=== PATIENT | female | born 1955 | race Caucasian/White ===

== ENCOUNTER 2020-09-06 08:09 | Outpatient (CLI) | payer SELFPAY | END 2020-09-06 08:10 | disposition home or self-care (01) | PROVIDERS: Family Provider Nurse Practitioner Family; PCP Nurse Practitioner Family; Visit Provider Thoracic Surgery (Cardiothoracic Vascular Surgery) | DX: E11.621 Type 2 diabetes mellitus with foot ulcer (principal); L97.522 Non-pressure chronic ulcer of other part of left foot with fat layer exposed | CPT/HCPCS: 11042; G0463 ==

== ENCOUNTER → 2020-09-08 11:44 | Outpatient (BNVA) | payer SELFPAY | PROVIDERS: Family Provider Nurse Practitioner Family; PCP Nurse Practitioner Family; Visit Provider Internal Medicine Cardiovascular Disease | DX: I99.8 Other disorder of circulatory system (principal) | CPT/HCPCS: 80048; 85025; 85610 ==

== ENCOUNTER 2020-09-13 09:30 | Observation (INO) | payer SELFPAY ==
[2020-09-12 13:54] VITALS: BMI 45.2
[2020-09-13] VITALS (57 sets, daily range): BP systolic 117–172; BP diastolic 64–104; PULSE 73–91; RESP 10–21; TEMP 36.3–36.7; O2SAT 94–99
--- NOTE | 2020-09-13 09:00 | XACV_ITS ---
Ht: 170 cm Wt: 135 kg BSA: 2.60 m2 Any Known Allergies: Other Gender: Female : 1955 Exam Type: Invasive Peripheral Vascular Procedure(s): Procedure Description: Peripheral Cath Diagnostic Procedure Procedure Description: Abdominal aortic angiography Procedure Description: Lower extremities' angiography Procedure Description: Peripheral vascular Intervention Procedure Description: PV Balloon Procedure Description: PV Atherectomy Exam Priority: Routine Lower Extremity Interventional Findings Left common femoral artery approach was adopted to cross distal right SFA popliteal and tibioperoneal trunk lesions. 2.0 melanie CSI atherectomy was performed in distal SFA and popliteal vessel. Right Tibioperoneal trunk in proximal and distal segment was dilated with balloon angioplasty. Please note that 5 x 40 mm [place] balloon was used in the tibioperoneal trunk by 5x150 lutonix drug-coated balloon was used in distal SFA and popliteal vessel. Excellent angiographic result with good flow was achieved, two-vessel runoff was confirmed below the knee.. Conclusions Peripheral Procedure Description: severe lifestyle limiting claudication of left leg then right William grade II, category 4:Yomi stage III. Procedure Abdominal aorta : Luminal irregularities Left and right renal artery has luminal irregularities Left common iliac artery has luminal irregularity Right common iliac artery has eccentric moderate to severe stenosis in the proximal segment Left internal iliac and right internal iliac has luminal irregularities Right and left external iliac artery has luminal irregularity Left and right common femoral artery has luminal irregularity Left and right profunda femoral artery has luminal irregularity Right SFA has luminal irregularity Left SFA has distal eccentric highly calcified severely stenotic lesion Left popliteal arteries has mid to distal moderate to severe calcified eccentric lesion Left tibioperoneal trunk is mid and distal eccentric severely calcified lesions Right popliteal artery has moderate disease, right tibioperoneal trunk has moderate stenosis Right tibioperoneal trunk has moderate stenosis Right side two-vessel runoff below the knee was noted Right anterior tibial vessel has proximal chronic occlusion with reconstituted in the middle mild posterior tibial on the right side is chronically occluded, posterior tibial reconstituted in the distal segment through anterior tibial Left anterior, peroneal and posterior tibial arteries are highly calcified vessel with diffuse disease and multiple moderate stenosis. Arch vessels are not well visualized . Recommendations 1-Return to inpatient for close monitoring and routine cath care 2-Risk factor modification for secondary prevention 3-Statin and aspirin 81 mg life--long, if tolerated 4-Patient was pre-loaded with 300 mg of Plavix, continue Plavix 75mg p.o. daily for three months 5-Continue optimal medical management 6-Follow up with Dr. Alvarenga in four weeks and your primary care in 10 days. Hemodynamic Data Phase:Rest AO : 197.0 / 72.0 ( 113.0 ) @ 12:19:00 PM 149.0 / 60.0 ( 89.0 ) @ 12:40:00 PM 159.0 / 77.0 ( 94.0 ) @ 12:46:00 PM Access Site Site: Right Femoral artery Sheath Size: 6 Fr Hemost... Method: Suture Hemost... Success: Successful Procedure Details Findings Procedure Consent Obtained. Pre-Procedure Time Out. Identified patient by full name and date of as verbalized by the patient/guarantor. Does the consent match the physician's order: Yes. Accurate & Complete Informed Consent: Yes. Inpatient/Outpatient History & Physical on Chart: Yes. If H&P is completed, is and addenduem needed: No; If yes, is the addendum complete: N/A. Visualize and Verify Site with Patient/Guarantor: N/A. Relevant Radiology Images available: N/A. Pre-op teaching completed and patient verbalized understanding. The risks, benefits, and alternatives of sedation and/or procedure were discussed by physician. The patient agrees to continue. Procedure started. Correct patient, site and procedure confirmed by cath team. PERRLA. Strong, equal hand divorce mediator bilaterally. Lungs clear x 5 lobes. IV Site on Arrival: 22 gauge in the left anticubital. IV Fluids: 0.9% NaCl at KVO. 0 mL infused prior to company laborer. Pre Procedural Pulses: bilateral dorsalis pedis was 1+. Pre Procedural Pulses: bilateral posterior tibial was 1+. Oxygen started at 2liters/min via nasal canula. bilateral groins was prepped with chloroprep then draped in the usual sterile fashion. Baseline sample Acquired. HR: 80 BPM. Equipment: Peripheral. Cardiac Cath Pack. ACIST Manifold Kit Model BT 2000. Heparinized Saline (2 units/mL), 1000 mL bag. Physician arrived. Physician notified. Physician scrubbed in. Immediate Pre-Procedure Time Out. Correct Patient: Yes; Correct Procedure: Yes; Correct Site: Yes; Correct Patient Position: Yes; Correct Supplies: Yes; Dried Flammable Prep: Yes; Blood Products Available: N/A;. Lidocaine 1% infiltrated to the right groin. Arterial access obtained with micropuncture set. A Data Driven Delivery System 5F UF catheter 65cm was advanced over the wire and used for Abdominal aortogram with runoff. Abdominal aortogram performed in AP @ 10 mL/sec for a total of 30 mL. Left leg runoff 10 ml for total of 30 ml. Glidewire inserted. Inventory is JJ 6F 11cm Victoria Plus Sheath. Catheter removed over wire. Short 6 fr sheath exchanged for 45 cm 6 fr Flexor sheath. Inventory is CK 6 FR FLEXOR SHEATH 45CM. Hand injection through sheath. Side port of sheath attached to Normal Saline flush at KVO to maintain patency. SEEKER support catheter inserted over glidewire. Glidewire out. Hand injection through sheath. Command wire inserted. Command wire out. Command wire inserted. SEEKER catheter inserted over Command wire. Family updated. Inflation number : 1 A AB ARMADA 14 OTW [id number] was prepped and advanced across the Tibial Peroneal Trunk, Left , then inflated to 20 ALESSANDRA for 2:02 seconds. Inflation number: 2 The AB ARMADA 14 OTW [id number] was reinflated across the Tibial Peroneal Trunk, Left, to 20 ALESSANDRA for 1:01 seconds. Balloon out over wire. Seeker catheter inserted over Command wire. Command wire out. Hand injection performed to tibial peroneal trunk. VIPER wire inserted. Side port of sheath attached to Normal Saline flush at KVO to maintain patency. Seeker catheter out over VIPER wire. 2.0mm Diamondback Peripheral orbital atherectomy device inserted over the VIPER wire. Orbital atherectomy performed in left SFA. Orbital atherectomy performed in left SFA. Orbital atherectomy performed in left SFA. Orbital atherectomy device removed over VIPER wire. Seeker catheter inserted over VIPER wire. Seeker out over wire. Viper wire out. Glidewire inserted. Inflation number : 1 A bard 5 FR Lutonix [id number] was prepped and advanced across the Superficial Femoral, Left , then inflated to 12 ALESSANDRA for 2:05 seconds. Inflation number: 2 The bard 5 FR Lutonix [id number] was reinflated across the Superficial Femoral, Left, to 12 ALESSANDRA for 1:01 seconds. Inflation number: 3 The bard 5 FR Lutonix [id number] was reinflated across the Superficial Femoral, Left, to 12 ALESSANDRA for 1:02 seconds. Balloon out. Left leg runoff to check results. Long 45 cm 6 fr flexor sheath exchanged for short 6 fr sheath. Right leg runoff 10 ml for total of 30 ml through the sheath. Physician scrubbed out. A Suture was successful obtaining hemostatsis at the Right Femoral artery insertion site. Sheath(s) sutured into position with 2-0 silk and sterile 4x4's and Op-site applied over the site. No oozing or signs and symptoms of hematoma noted. Arterial sheath flushed and connected to tranducer and pressure bag with heparinized saline. Post Procedure: Pulses reassessed and unchanged. PERRLA. Strong, equal hand divorce mediator bilaterally. No VTE prophylaxis required. Medication's Wasted: Nitro = 48.8 mg. Medication's Wasted: Heparin = 1000 units. Medication's Wasted: Other = verapamil 4 mg. Medication's Wasted: Other = hydralazine 10 mg. Total IV fluids: 86.4 mL. Contrast type used: Visipaque 320 mgI/mL, 500 mL bottle. Post-op diagnosis: PVD. Complications: none. Estimated blood loss: 5mL-10mL. Procedure completed. Patient transferred by bed to 1st floor. Vital chart was stopped. Procedure Medications Start: 5:04 PM Stop: 5:04 PM Medication: Versed Amount: 1 mg Route: I.V. Start: 5:04 PM Stop: 5:04 PM Medication: Fentanyl Amount: 25 mcg Route: I.V. Start: 5:15 PM Stop: 5:15 PM Medication: Versed Amount: 1 mg Route: I.V. Start: 5:15 PM Stop: 5:15 PM Medication: Fentanyl Amount: 25 mcg Route: I.V. Start: 5:21 PM Stop: 5:21 PM Medication: Hydralazine Amount: 10 mg Route: I.V. Start: 5:23 PM Stop: 5:23 PM Medication: Versed Amount: 1 mg Route: I.V. Start: 5:29 PM Stop: 5:29 PM Medication: Heparin Amount: 5000 units Route: I.V. Start: 5:42 PM Stop: 5:42 PM Medication: Versed Amount: 1 mg Route: I.V. Start: 5:42 PM Stop: 5:42 PM Medication: Fentanyl Amount: 25 mcg Route: I.V. Start: 5:49 PM Stop: 5:49 PM Medication: Nitrogylcerin Amount: 400 mcg Route: I.A. Start: 5:52 PM Stop: 5:52 PM Medication: Heparin Amount: 4000 units Route: I.V. Start: 5:59 PM Stop: 5:59 PM Medication: Versed Amount: 1 mg Route: I.V. Start: 5:59 PM Stop: 5:59 PM Medication: Fentanyl Amount: 25 mcg Route: I.V. Start: 6:02 PM Stop: 6:02 PM Medication: Versed Amount: 1 mg Route: I.V. Start: 6:15 PM Stop: 6:15 PM Medication: Nitrogylcerin Amount: 400 mcg Route: I.A. Start: 6:24 PM Stop: 6:24 PM Medication: Plavix Amount: 300 mg Route: P.O. History/Risk Factors Hypertension: No Dyslipidemia: Yes Peripheral Arterial Disease (PAD): Yes Obesity: No Renal Disease: No Prior Interventions PCI: No CABG: No Valve Surgery: No Report Signatures Finalized by Mo Alvarenga MD on 09/19/2020 04:44 PM
[2020-09-13 09:29] LABS: Glucose Point of Care 274 mg/dL (70-110)
--- NOTE | 2020-09-13 09:44 | PM.HP ---
Providers/Chief Complaint Primary Care Provider: Jas Willett MD Chief Complaint: Critical limb ischemia History of Present Illness Naida Arevalo is a 65 year old female past medical history significant for uncontrolled diabetes mellitus and gangrenous left foot/toes is under care of Dr. Leiva in the wound care clinic has been referred to us for revascularization for wound healing and limb salvage. Patient had monophasic flow in the leg by handheld. No other imaging available, we are planning to proceed with peripheral angiogram and percutaneous intervention if indicated. Patient is being admitted to cardiac stepdown floor for preop preparation. Patient has been explained by me all risk benefit and alternative for the procedure. She understand the risk for distal embolization leading to acute leg urgent emergent vascular surgery amputation major minor bleed contrast-induced nephropathy and vascular intervention. Patient has been explained in detail regarding FDA warning for drug-coated balloon and increased mortality in subset. She understand the risk and would like to use it if indicated. Medications/Allergies Home Medications Medication Instructions Recorded Confirmed Last Taken Type aspirin 325 mg PO QAM 09/12/20 09/13/20 09/11/20 21:00 History insulin NPH human semi-syn See Rx Instructions .ROUTE .COMPLEX 09/12/20 09/12/20 09/12/20 07:30 History [Novolin N (Semi-Synthetic)] lisinopril 5 mg PO QAM 09/12/20 09/13/20 09/12/20 08:00 History metformin 1,000 mg PO BID 09/12/20 09/13/20 09/12/20 08:00 History Allergies Allergy/AdvReac Type Severity Reaction Status Date / Time empagliflozin Allergy Unknown Verified 09/12/20 13:53 [From Jardiance] PFSH Acute PFSH: Medical History (Updated 09/13/20 @ 10:16 by Mo Alvarenga MD) Diabetes mellitus Gangrene Hyperlipidemia Hypertension Family History (Updated 09/12/20 @ 13:50 by Michael Melgar, RN) Other CAD (coronary artery disease) Cancer Diabetes Stroke Social History (Updated 09/12/20 @ 13:50 by Michael Melgar, CHRISTELLE) Smoking and tobacco status: never smoked Vitals/I&O/Wt Weight last 48 hrs Weight 289 lb Physical Exam Narrative: EXAM NARRATIVE: GENERAL: Patient is alert, awake and oriented x3. NECK: No jugular vein distension. HEENT: No cyanosis. No icterus. No pallor. HEART: Regular S1 and S2. No murmur, rub or gallop. LUNGS: Clear to auscultate bilaterally. ABDOMEN: Soft, nontender and nondistended. Positive bowel sounds. No guarding, rebound or tenderness. CENTRAL NERVOUS SYSTEM: Grossly nonfocal. EXTREMITIES: Lower extremities without edema bilaterally. Left gangrenous foot/toes A&P Assessment and plan (1) Critical lower limb ischemia: For critical limb ischemia/gangrenous foot we will proceed with peripheral angiogram and percutaneous intervention if indicated. Status: Acute (2) Diabetes mellitus: We will hold insulin and Metformin sliding scale will cover Status: Acute Qualifiers: Diabetes mellitus type: type 2 Diabetes mellitus exterminator termite insulin use: with exterminator termite use Diabetes mellitus complication status: with other specified complication Qualified Code(s): E11.69 - Type 2 diabetes mellitus with other specified complication; Z79.4 - terminal carman (current) use of insulin (3) Gangrene: Will proceed with revascularization Status: Inactive Attestations Medical Necessity Statement*: I am expecting her stay not to cross more than 2 days. Coding Level of Care Code New Pt Acute Hat Parts Cutter Machine for [facility] Fwd Patient Type New History Detailed Exam Detailed Medical Decision Making Moderate Complexity Diagnoses Critical lower limb ischemia I99.8 Diabetes mellitus E11.69; Z79.4 Diabetes mellitus type: type 2 Diabetes mellitus exterminator termite insulin use: with exterminator termite use Diabetes mellitus complication status: with other specified complication Gangrene I96
[2020-09-13 11:31] LABS: Glucose Point of Care 245 mg/dL (70-110)
[2020-09-13] MEDS: diphenhydrAMINE 50 mg Capsule PO (15:47)
[2020-09-13] MEDS: sodium chloride 0.9% 1,000 ML 50 ML IV (15:50)
--- NOTE | 2020-09-13 16:45 | PC.NURSE ---
To heart laborer laboratory at [id number]
--- NOTE | 2020-09-13 19:13 | PC.NURSE ---
Received bedside report from CHRISTELLE Hilton. Patient received from laboratory courier via bed. Patient is s/p peripheral angiogram. Patient has sheath to right groin with pressure bag attached. Site is free from bleeding or hematoma formation. Discussed site care restrictions and patient verbalized understanding. Daughter at bedside. Dinner provided. Dr Alvarenga in to see patient. Patient has dopplered pulses to left pedal and tibial pulses present. Patient stated, 'That sounds wonderful. Patient denies pain or other needs. No distress observed.
--- NOTE | 2020-09-13 20:04 | PC.NURSE ---
Addendum entered by Natasha Riley RN 09/13/20 20:22: Pulses to right leg present by doppler. Original Note: Patient c/o severe pain to right leg 8-03/09. Assessed groin site with sheath in place. No s/s of bleeding or hematoma formation observed. Informed Dr Alvarnega and received telephone order for Morphine 4mg IVP every 4 hours as needed for pain.
[2020-09-13] MEDS: morphine 4 mg/mL SDV 1 mL IVP (20:12)
[2020-09-13 21:01] LABS: Glucose Point of Care 279 mg/dL (70-110)
[2020-09-13 21:13] LABS: Partial Thromboplastin Time 49.7 SECONDS (23.9-36.7)
--- NOTE | 2020-09-13 21:16 | PC.NURSE ---
Patient report some improvement to pain in right leg. Right femoral site with sheath and pressure bag attached remain without s/s of bleeding or hematoma formation. Discussed pending PTT results for sheath removal. Patient expressed understanding.
--- NOTE | 2020-09-13 22:00 | PC.NURSE ---
Patient c/o nausea and severe pain to right leg. Informed Dr Alvarenga and received telephone orders for Zofran 4-8mg IVP every 6 hours as needed for nausea and Fentnyl 50mcg IVP one time now for pain and sheath removal. RBVO.
[2020-09-13] MEDS: fentaNYL 50 mcg/mL INJ 2mL IVP (22:03)
[2020-09-13] MEDS: ondansetron 2 mg/ML SDV 2 mL IVP (22:04)
--- NOTE | 2020-09-13 22:10 | PC.NURSE ---
Dr Alvarenga in to see patient. Doctor in agreement. No hematoma formation or bleeding noted. Doctor doppled pulses with good audible results. Received orders to discontinue morphine and change to fentnyl 25mcg IVP every 4 hours for severe pain. Also received order for Protonix 40mg PO daily to start now. RBVO.
[2020-09-13] MEDS: pantoprazole DR 40 mg Tablet PO (22:19)
--- NOTE | 2020-09-13 23:08 | PC.NURSE ---
Patient pre-medicated as ordered by Dr Alvarenga for sheath removal. Initiated sheath removal per protocol at 2226. Hemostasis achieved immediately. Maintained pressure for 20min. VS remained WNL. Cleaned and dressed site with folded 4x4 and bio-occlusive dressing. Patient reported some relief of nausea and pain during procedure. Patient requested bedpan with very small amount of urine obtained. Cleaned patient. Positioned patient to right lateral position x2 assist with pillows placed. No s/s of bleeding or hematoma formation observed. Instructed patient on site care and restrictions. Patient verbalized understanding. Patient had small episode of emesis and .dry heaves . Observed less than 10ml of mucous, rader colored emesis. Patient requesting zoe crackers and jello to help with feeling of nausea which were provided. Patient expressed thanks.
[2020-09-14] VITALS (14 sets, daily range): BP systolic 129–157; BP diastolic 70–105; PULSE 73–96; RESP 6–95; TEMP 36.4–36.6; O2SAT 97
--- NOTE | 2020-09-14 01:18 | PC.NURSE ---
Patient assisted on to bed tam. Placed patient back on right lateral side per patient request. Dressing to right groin remain c,d,i with no s/s of bleeding or hematoma formation observed. Both extremities pink and warm to touch. Pulses doppled and present to bilateral lower extremities. Patient reports pain to right leg resolving at this time. Patient does have complaint of pain to left leg presently 3-4/10 but is tolerable at this time. Nausea resolved. No other distress observed.
--- NOTE | 2020-09-14 04:52 | PC.NURSE ---
Patient up to bathroom using walker. Dressing to right groin remains c,d,i. No s/s of bleeding or hematoma observed. Patient reports much improvement to all her pain. BLE pink, warm to touch with doppled pulses present.
[2020-09-14] MEDS: lisinopril 5 mg Tablet PO (05:00)
[2020-09-14] MEDS: aspirin 325 mg Tablet PO (05:00)
[2020-09-14 05:04] LABS: Basophils % 0.2 %; Eosinophils # 0.1 10^3/uL (0.0-0.8); Eosinophils % 1.1 %; Hematocrit 37.7 % (37.0-47.0); Hemoglobin 11.8 g/dL (11.5-15.3); Lymphocytes # 2.6 10^3/uL (0.8-4.8); Lymphocytes % 26.1 %; Mean Corpuscular HGB Conc 31.3 g/dL (30.0-36.0); Mean Corpuscular Volume 89.3 fL (81-99); Monocytes # 0.8 10^3/uL (0.2-0.9); Monocytes % 7.8 %; Neutrophils % 64.4 %; Nucleated Red Blood Cells % 0 %; Platelet Count 373 10^3/cmm (130-400); Red Blood Count 4.22 10^6/uL (4.1-5.3); Red Cell Distribution Width 12.4 % (12.1-15.1); White Blood Count 9.9 10^3/uL (4.0-10.0)
[2020-09-14 05:26] LABS: Anion Gap 15.4 (5-19); Blood Urea Nitrogen 16 mg/dL (8-23); Calcium 8.4 mg/dL (8.5-10.5); Carbon Dioxide 23 mmol/L (22-29); Chloride 100 mmol/L (98-107); Creatinine Clr Calc Pharmacy 0; Glomerular Filtration Rate 100.6 mL/min (90-130); Glucose 287 mg/dL (65-115); Osmolality Calculated 290 mOsm/kg (285-295); Potassium 4.4 mmol/L (3.5-5.1); Sodium 134 mmol/L (136-145)
[2020-09-14 06:51] LABS: Glucose Point of Care 277 mg/dL (70-110)
[2020-09-14] MEDS: pantoprazole DR 40 mg Tablet PO (07:33)
--- NOTE | 2020-09-14 10:46 | PC.CHAP ---
Pastoral Care Encounter/Spiritual Assessment Type of Contact [] Declined automat car attendant visit [] Patient/Family/Request visit [] Outpatient visit [] Follow-up visit [] Physician referral [] Code/Alert [x] Routine visit [] Staff referral [] Actively dying [] Patient sleeping [] Family support [] [] Out of room [] Palliative care [] [x] Receiving care in room [] Pre-surgical visit [] Trauma [] Long length of stay [] ICU visit [] Other: Relational/Emotional Strength [x] Patient feels connected with others/family/visitors/staff [] Distress [] Loneliness/isolation [] Abandonment Spirituality of Patient [x] Person of Mikki [] Attends Rastafarian of their Mikki [x] Believes in Prayer [] Reads Bible or Lutheran materials [] There are Spiritual issues to be addressed Showroom Executive Director Interventions [x] Prayer [x] Active listening [x] Non-anxious presence [x] Spiritual/emotional support [] Crisis/trauma care [x] Spiritual counseling [] Bereavement support [] Provided bereavement packet [] Provided Bible/devotional materials [] Provided toy/stuffed animal, coloring book to patient or family member [] Provided Communion [] Anointing/[place] [] Salvation [x] Completed spiritual assessment [] Other: Impact on Illness or Injury [] Angry [] Fearful [] Anxious [] Often cries [] Exhaustion [] Unable to work [] Unable to attend uatsdin [] Unable to walk/stand [] Unable to read [] Unable to drive [] Unable to eat/drink [] Unable to sleep [] Unable to be with family [] Patient intubated [] Other: Summary going to have toe removed, has a good attitude hope to have surgery while she is here Time spent with patient 10 mins
[2020-09-14 11:52] LABS: Glucose Point of Care 249 mg/dL (70-110)
--- NOTE | 2020-09-14 14:39 | P.DS_ITS ---
Discharge Providers Date of Admission: 09/13/20 09:30 Date of Discharge: September 14, 2020 Attending Provider at Admission: Mo Alvarenga MD Attending Provider at Discharge: Mo Alvarenga MD Primary Care Provider: Jas Willett MD Diagnoses at Discharge Discharge Diagnosis (1) Critical lower limb ischemia: Status: Resolved (2) Diabetes mellitus: Status: Acute Qualifiers: Diabetes mellitus complication status: with other specified complication Diabetes mellitus long term care pharmacist insulin use: with long term care pharmacist use Diabetes mellitus type: type 2 Qualified Code(s): E11.69 - Type 2 diabetes mellitus with other specified complication; Z79.4 - correction (current) use of insulin (3) Gangrene: Status: Inactive Reason for Visit Reason for Visit: Critical limb ischemia Hospital Course Hospital Course 65-year-old female underwent left SFA atherectomy and balloon angioplasty with good result. No overnight event. She is following up with Dr. Leiva in the wound care for 2 amputation secondary to gangrene us toes. Overall she is happy with the results she has good anterior posterior tibial pulse. Foot appear to be warm moist. Groin wound looks good. No hematoma. She is being discharged home. Physical Exam Narrative: EXAM NARRATIVE: GENERAL: Patient is alert, awake and oriented x3. NECK: No jugular vein distension. HEENT: No cyanosis. No icterus. No pallor. HEART: Regular S1 and S2. No murmur, rub or gallop. LUNGS: Clear to auscultate bilaterally. ABDOMEN: Soft, nontender and nondistended. Positive bowel sounds. No guarding, rebound or tenderness. CENTRAL NERVOUS SYSTEM: Grossly nonfocal. EXTREMITIES: Lower extremities without edema bilaterally. Left gangrenous foot/toes, anterior posterior tibial dopplerable Discharge Data Data Completed and Pending: Pending at discharge Category Date Time Status ENGINEERING SYSTEMS ANALYST request for service Routin e Exams 09/13/20 09:00 Taken Labs from last 24 hours 09/14/20 09/14/20 09/14/20 11:19 06:37 04:41 WBC RBC Hgb Hct MCV MCH MCHC RDW Plt Count MPV Neut % (Auto) Lymph % (Auto) [place] % (Auto) Eos % (Auto) Baso % (Auto) Neut # (Auto) Lymph # (Auto) [place] # (Auto) Eos # (Auto) Baso # (Auto) Nucleated RBC % (a uto) Nucleated RBCs # APTT Sodium 134 L Potassium 4.4 Chloride 100 Carbon Dioxide 23 Anion Gap 15.4 BUN 16 Creatinine 0.6 GFR Calculation 100.6 Glucose 287 H POC Glucose 249 H 277 H Calculated Osmolal ity 290 Calcium 8.4 L 09/14/20 09/13/20 09/13/20 04:41 20:57 20:40 WBC 9.9 RBC 4.22 Hgb 11.8 Hct 37.7 MCV 89.3 MCH 28.0 MCHC 31.3 RDW 12.4 Plt Count 373 MPV 10.0 Neut % (Auto) 64.4 Lymph % (Auto) 26.1 [place] % (Auto) 7.8 Eos % (Auto) 1.1 Baso % (Auto) 0.2 Neut # (Auto) 6.40 Lymph # (Auto) 2.6 [place] # (Auto) 0.8 Eos # (Auto) 0.1 Baso # (Auto) 0.0 Nucleated RBC % (a uto) 0 Nucleated RBCs # 0.0 APTT 49.7 H Sodium Potassium Chloride Carbon Dioxide Anion Gap BUN Creatinine GFR Calculation Glucose POC Glucose 279 H Calculated Osmolal ity Calcium Vitals: Last Vital Signs Temp 97.5 F L 09/14/20 11:21 Pulse 84 09/14/20 11:21 Resp 21 H 09/14/20 11:21 BP 129/83 09/14/20 11:21 Pulse Ox 94 09/13/20 22:45 Discharge Plan Discharge Patient Disposition: Home Condition: Stable Prescriptions: New clopidogrel 75 mg tablet 75 mg PO DAILY Qty: 90 RF: 2 pantoprazole 20 mg tablet,delayed release (DR/EC) 20 mg PO DAILY 56 Days Qty: 60 RF: 0 Continued metformin 1,000 mg Tablet 1,000 mg PO BID RF: 0 lisinopril 5 mg Tablet 5 mg PO QAM RF: 0 insulin NPH human semi-syn 100 unit/mL Cartridge See Rx Instructions .ROUTE .COMPLEX RF: 0 No Action sulfamethoxazole-trimethoprim [Bactrim DS] 800-160 mg tablet 1 tab PO BID Qty: 20 RF: 0 hydrocodone-acetaminophen 5-325 mg tablet 1 tab PO Q6H PRN (Reason: pain) 7 Days Qty: 20 RF: 0 Discharge Orders: Discharge Order (Routine); Ordered 09/14/20 Ordered By: Mo Alvarenga Referrals: Mo Alvarenga MD [Physician] - 6 months (YOU HAVE A FOLLOW UP APPOINTMENT WITH DR. ALVARENGA ON Friday AT 200 PM. IF YOU HAVE AN QUESTIONS OR NEED TO RESCHEDULE PLEASE CALL [phone]) Lico Leiva MD [Physician] - (YOU HAVE AN APPOINTMENT WITH AT WOUND CARE ON FridayAugust AT 930 AM IF YOU HAVE ANY QUESTIONS PLEASE CALL [phone].) Nan Bradley FNP [Nurse Practitioner] - 7-10 days (YOU HAVE A FOLLOW UP APPOINTMENT WITH [facility] BRAD[facility] ON FridayAugust AT 930 AM. IF YOU HAVE AN QUESTIONS OR NEED TO RESCHEDULE PLEASE CALL [phone]) Discharge Diet: Cardiac Discharge Activity: Increase activity as tolerated Patient Instructions: Clopidogrel (By mouth), Pantoprazole (By mouth), Peripheral Vascular Angioplasty (DC), Post Angiogram Home Care Instructions Activity Restrictions/Additional Instructions: Follow-up with Nan Bradley in 7 to 10 days. Follow-up with Dr. Leiva in wound care as instructed by wound care. Follow-up with Dr. Alvarenga in 6-month. Discharge Attestations Time Spent in Discharge Care*: greater than 30 min Specific Discharge Activities: educating patient and educating and/or supporting family/caregiver Quality Metrics Clinical Quality Measures During this hospital stay, did patient experience: None Coding Level of Care Code Acute g FW DC note Diagnoses Critical lower limb ischemia I99.8 Diabetes mellitus E11.69; Z79.4 Diabetes mellitus complication status: with other specified complication Diabetes mellitus prison insulin use: with long term care pharmacist use Diabetes mellitus type: type 2 Gangrene I96
[2020-09-14] MEDS: HYDROcodone-acetaminophen 5-325 mg Tablet 1 TAB PO (15:30)
--- NOTE | 2020-09-14 15:50 | PC.NURSE ---
meds to bed
--- NOTE | 2020-09-14 16:24 | PC.NURSE ---
Discharge to home with daughter at bedside Discuss to pt regarding her follow-up appointments as scheduled and new meds dosing, timing, actions. Post angiogram home care instructions regarding activity restrictions, wound care, what to expect and what to keep and eye. Pt verbalizes understanding. provided to pt discharge packet.
== END 2020-09-14 16:24 | disposition home or self-care (01) ==
LOC: CSU 09-14 09:28 → CCL 09-18 08:16
PROVIDERS: Admitting Provider Internal Medicine Cardiovascular Disease; PCP Family Medicine; Visit Provider Internal Medicine Cardiovascular Disease
DX: I70.263 Atherosclerosis of native arteries of extremities with gangrene, bilateral legs (principal); E11.69 Type 2 diabetes mellitus with other specified complication; Z79.4 Long term (current) use of insulin; E78.5 Hyperlipidemia, unspecified
CPT/HCPCS: 36415; 36416; 37225; 37228; 75625; 75716; 80048; 82962; 85025; 85730; 96372; C1724; C1725; C1769; C1887; C1894; C2623; G0378; J0360; J1644; J1815; J2250; J2270; J2405; J3010; J3490; J7030; Q0163; Q9967

== ENCOUNTER 2020-09-20 08:32 | Outpatient (CLI) | payer SELFPAY | END 2020-09-20 08:33 | disposition home or self-care (01) | LOC: WOUND 08:33 | PROVIDERS: PCP Family Medicine; Visit Provider Thoracic Surgery (Cardiothoracic Vascular Surgery) | DX: E11.621 Type 2 diabetes mellitus with foot ulcer (principal); L97.522 Non-pressure chronic ulcer of other part of left foot with fat layer exposed; Z20.822 Contact with and (suspected) exposure to COVID-19; Z11.52 Encounter for screening for COVID-19; I73.9 Peripheral vascular disease, unspecified | CPT/HCPCS: 87635; G0463 ==

== ENCOUNTER → 2020-09-21 09:55 | Outpatient (BNVA) | payer SELFPAY | PROVIDERS: PCP Family Medicine; Visit Provider Nurse Practitioner Family | DX: I73.9 Peripheral vascular disease, unspecified (principal) | CPT/HCPCS: 80048 ==

== ENCOUNTER 2020-09-22 10:27 | Day surgery (SDC) | payer SELFPAY ==
[2020-09-21 13:53] VITALS: BMI 47.0
--- NOTE | 2020-09-22 11:08 | ANES.PREANE2 ---
Pre-Anesthetic Assessment Pre-Anesthetic Assessment: Height/Weight: Height 1.7 m Weight 136.078 kg Preop Diagnosis: PVD Proposed Procedure: Operation Date: 09/22/20 12:20 Proposed Procedures p Amputation Toe/s Second and Third 35886 E11.621(Left) - Lico Leiva MD Familial anesthetic complications: nione Was Beta Lauren taken within 24 hours: N/A Was Clonidine taken within 24 hours: N/A Last intake: Intake Last Liquid Date 09/21/20 Last Liquid Time 18:00 Last Solid Date 09/21/20 Last Solid Time 18:00 Social: Social History: No alcohol and No tobacco Exam: Pre-Anes Outpt Exam: alert, oriented x 3, clear to auscultation bilaterally and regular rate & rhythm Airway: Cervical ROM: WNL MP: 3 Dentition: False CV/HEM: CV/HEM: CAD, HTN and PVD Metabolic: Metabolic: DM and Morbid obesity Anesthetic Plan: ASA status: 3 Anesthesia: MAC Risk of > 500 ml blood loss (7ml/kg in children): No PFSH Anesthesia PFSH: Medical History (Updated 09/21/20 @ 09:45 by TAISHA Ennis) Diabetes mellitus Gangrene Hyperlipidemia Hypertension PVD (peripheral vascular disease) Family History Other CAD (coronary artery disease) Cancer Diabetes Stroke Social History Smoking and tobacco status: never smoked Data Anesthesia Cardiac Studies: No Data to Display
--- NOTE | 2020-09-22 11:22 | ECG_ITS ---
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 Measurements Intervals [place] Rate: 83 P: 57 NC: 168 QRS: 7 QRSD: 95 T: 56 QT: 360 QTc: 425 Interpretive Statements SINUS RHYTHM WITH SINUS ARRHYTHMIA Compared to ECG 03/28/2016 18:22:26 No significant changes Electronically Signed On 09-22-2020 18:19:43 CDT by Ольга Gaitan M.D. [email or web address] issaquena community hospitalClix Softwareblanchard valley health system [facility].[id number]
[2020-09-22] MEDS: sodium chloride 0.9% 1,000 ML 30 ML IV (11:30)
--- NOTE | 2020-09-22 12:02 | W.PM.OPSUD ---
Surgery/Procedure H&P Update DATE OF PROCEDURE: September 22, 2020 DATE H&P PERFORMED: 09/20/20 H&P UPDATE INFORMATION: I have reviewed H&P completed within last 30 days, I have examined patient prior to procedure and No changes to prior documentation PREOP DIAGNOSIS: Left second and third toe amputations PRIMARY INDICATION FOR PROCEDURE: Gangrenous changes left second and third toes, status post angioplasty left SFA PLANNED PROCEDURE: Operation Date: 09/22/20 12:20 Proposed Procedures p Amputation Toe/s Second and Third 53976 E11.621(Left) - Lico Leiva MD
[2020-09-22] MEDS: vancomycin 1,000 MG in sodium chloride 0.9% 250 ML 250 MG IV (12:03)
[2020-09-22] MEDS: lidocaine 1% INJ 20 mL IM (12:24)
[2020-09-22] MEDS: ceFAZolin 1,000 mg SDV 1000 MG IRRIGATION (12:48)
[2020-09-22 13:03] VITALS: BP 130/80; PULSE 79; RESP 16; TEMP 36.8; O2SAT 93
[2020-09-22 13:05] VITALS: BP 128/79; PULSE 84; RESP 14; O2SAT 92
[2020-09-22 13:10] VITALS: BP 150/77; PULSE 78; RESP 14; O2SAT 93
[2020-09-22 13:15] VITALS: BP 147/89; PULSE 77; RESP 13; TEMP 36.6; O2SAT 95
--- NOTE | 2020-09-22 13:16 | PM.OP ---
Operative Report Date of procedure: September 22, 2020 Pre-op Diagnosis: Left second and third toe amputations Post-op diagnosis: same Procedure Done: Amputation of left second and third toes. Specimens removed/disposition: Left second and third toes Surgeon: Lico Leiva Anesthesia: MAC and Local Complications: None Condition: stable Disposition: PACU Brief History: 65-year-old diabetic female with gangrenous changes to the left second and third toes. History of peripheral arterial disease and status post intervention to the left SFA recently by our cardiology service. Followed carefully in wound care. Due to continued gangrenous changes to the left second and third toes, amputation was recommended. Details and risk of procedure carefully and frankly discussed. Proper consents have been reviewed and signed. Procedure: Ms. Arevalo was taken to the operating room theater and carefully positioned on the OR table. She underwent IV conscious sedation with anesthesia monitoring. Her entire left lower leg from mid calf through the foot was sterilely prepped and draped. Appropriate timeout was completed and confirmed. 1% lidocaine was infiltrated as a digital block to the left second and third toes. #15 scalpel blade was then utilized to incise at the base of the left second and third toes down through the subtendinous tissues to the metatarsal phalangeal joints and subsequent transection of associated ligaments and tendons. Left second and third toes were removed. Cautery was utilized very judiciously on major bleeding points. Powered blade was then utilized to transect the heads of the left second and third metatarsals. Wound was irrigated with antibiotic solution. Hemostasis confirmed. I elected to attempt primary closure of this wound utilizing interrupted and mattress closure 3-0 nylon sutures. Once completed, the wound was carefully cleansed and then sterilely dressed. Ms. Turcios was awakened from IV conscious sedation and transferred to the PACU in stable condition. She will continue outpatient antibiotics previously prescribed. She will be followed up in wound care services next week. It is not clear at this time as to whether we will be successful with attempted primary closure following amputation, given her marginal blood supply distally.
[2020-09-22 13:22] VITALS: BP 140/85; PULSE 79; RESP 16; O2SAT 97
--- NOTE | 2020-09-22 13:40 | ANE.PACU2 ---
Inpatient post-anesthesia follow up: Airway intact: Yes Vital signs: Temperature 97.8 F Pulse Rate 79 Respiratory Rate 16 Blood Pressure 140/85 Pulse Oximetry 97 Oxygen Delivery Me thod Room Air Oxygen Flow Rate Fraction of Inspir ed Oxygen Hydration adequate: Yes Nausea and vomiting: No Pain level: 2 Mental status: Baseline
[2020-09-22 14:00] VITALS: BP 185/77; PULSE 79; RESP 16; O2SAT 100
[2020-09-22 18:44] LABS: Glucose Point of Care 279 mg/dL (70-110)
== END 2020-09-22 14:46 | disposition home or self-care (01) ==
PROVIDERS: PCP Family Medicine; Visit Provider Thoracic Surgery (Cardiothoracic Vascular Surgery)
PROC: (CPT 28820; principal; 2020-09-22 12:10)
DX: I96 Gangrene, not elsewhere classified (principal); I25.10 Atherosclerotic heart disease of native coronary artery without angina pectoris; I10 Essential (primary) hypertension; E11.9 Type 2 diabetes mellitus without complications; E66.01 Morbid (severe) obesity due to excess calories; Z68.42 Body mass index [BMI] 45.0-49.9, adult
CPT/HCPCS: 28820 ×2; 36416; 82962; 88305; 93005; J0690; J2704; J3010; J3370; J7030; J7050

== ENCOUNTER 2020-09-27 08:50 | Outpatient (CLI) | payer SELFPAY | END 2020-09-27 08:51 | disposition home or self-care (01) | LOC: WOUND 08:50 | PROVIDERS: PCP Family Medicine; Visit Provider Thoracic Surgery (Cardiothoracic Vascular Surgery) | DX: E11.621 Type 2 diabetes mellitus with foot ulcer (principal); L97.529 Non-pressure chronic ulcer of other part of left foot with unspecified severity | CPT/HCPCS: 99212 ==

== ENCOUNTER 2020-10-04 08:39 | Outpatient (CLI) | payer SELFPAY | END 2020-10-04 08:40 | disposition home or self-care (01) | LOC: WOUND 08:41 | PROVIDERS: PCP Family Medicine; Visit Provider Thoracic Surgery (Cardiothoracic Vascular Surgery) | DX: E11.621 Type 2 diabetes mellitus with foot ulcer (principal); L97.529 Non-pressure chronic ulcer of other part of left foot with unspecified severity | CPT/HCPCS: 99212 ==

== ENCOUNTER 2020-10-05 13:28 | Emergency (ER) | payer SELFPAY ==
[2020-10-05 13:40] VITALS: BP 230/94; PULSE 80; RESP 18; TEMP 36.4; O2SAT 100; BMI 48.4
--- NOTE | 2020-10-05 13:43 | XR_ITS ---
WS: [id number] Right shoulder, 2 views, 10/05/2020 Clinical Data: pain Comparison: None. Findings: There is a fracture of the junction of the right humeral head and right humeral neck. The humeral hea d remains within the glenoid fossa. The AC joint is not remarkable. The adjacent right clavicle, righ t scapula and right ribs are normal. There is soft tissue swelling over the fracture site. XR/XR shoulder RT min 2V* 19471 Impression: Fracture of the junction of the right humeral head and right humeral neck.
--- NOTE | 2020-10-05 13:43 | CT_ITS ---
WS: [id number] CT scan of the head, 10/05/2020 Clinical Data: fall, pain Comparison: None. DLP: 994.[address] scans at [facility] use at least one of these dose optimization techniques: automat ed exposure control; mA and/or kV adjustment per patient size (includes targeted exams where dose is matched to clinical indication); or iterative reconstruction. Findings: The ventricular system is normal without shift. No recent infarct or hemorrhage is seen. There are no abnormal intracerebral masses. The cerebellum and brainstem are not remarkable. Bony windows of the skull and skull base show no fractures or erosions. The mastoid air cells, international bank manager al auditory canals, sella turcica, intraorbital contents, and paranasal sinuses are unremarkable. CT/CT head wo con* [id number] Impression: Negative CT scan of the head
--- NOTE | 2020-10-05 13:43 | XR_ITS ---
WS: [id number] Portable AP supine chest, 10/05/2020 Clinical Data: dyspnea/cough Comparison: PA chest, 03/28/2016. Findings: No nodules, masses or effusions are seen. The heart is normal. The pulmonary vascularity is not increased. No pneumonia or pneumothorax is seen. The patient's clothing obscures only minimal de tail over the upper chest. XR/XR chest 1V portable [id number] Impression: Negative chest.
--- NOTE | 2020-10-05 13:43 | CT_ITS ---
WS: [id number] CT cervical spine. Additional two-dimensional coronal and sagittal reconstruction was performed. 2020 Clinical Data: pain after fall Comparison: None. DLP: 1018.[address] scans at [facility] use at least one of these dose optimization techniques: automat ed exposure control; mA and/or kV adjustment per patient size (includes targeted exams where dose is matched to clinical indication); or iterative reconstruction. Findings: No compression fractures are seen. There is disc space narrowing at C5-C6. Osteoarthritic change is p resent at C5-C6. The spinous processes are in good alignment. The odontoid is unremarkable. There is no prevertebral soft tissue swelling. The soft tissues of the cervical spine in the lung apices are n ot remarkable. CT/CT cervical spin wo con* [id number] Impression: 1. Negative for cervical spine fracture. 2. 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
--- NOTE | 2020-10-05 13:43 | XR_ITS ---
WS: [id number] Left hip, AP view, 10/05/2020 Clinical Data: pain Comparison: None. Findings: No fractures or dislocations are seen. The left hip joint is intact. The soft tissues are not remarka ble. The adjacent pelvis is normal. XR/XR hip LT 2-3V wo/w pel* [id number] Impression: Negative AP view of the left hip
--- NOTE | 2020-10-05 13:43 | XR_ITS ---
WS: [id number] Left femur and thigh, multiple views, 10/05/2020 Clinical Data: pain Comparison: None. Findings: No fractures or dislocations are seen. The soft tissues are normal. The visualized knee shows no frac tures. There is lateral joint compartment narrowing of the left knee. The frog-leg and lateral views of the proximal left femur were obscured by the patient's tissue XR/XR femur LT min 2V* [id number] Impression: Negative for left femoral fracture.
[2020-10-05 13:46] VITALS: O2SAT 100
[2020-10-05] MEDS: morphine 4 mg/mL SDV 1 mL IVP ×3 (13:49→16:39)
--- NOTE | 2020-10-05 13:59 | ED_ITS ---
HPI - Fall General: Chief Complaint: Fall Stated Complaint: FALL Time Seen by Provider: 10/05/20 13:31 History of Present Illness: HPI Narrative: 65-year-old female comes in after a fall at home she stumbled on her feet and fell forwards complaining of right arm neck and head pain right shoulder pain. During exam she also voices pain at the left hip and knee. There are no obvious deformities of the hip.. She denies loss of consciousness she has her right arm in a sling. She did not receive any pain medications in route as they were unable to establish an IV. She has a postop shoe on her left foot from her recent amputation of the second and third toes due to diabetic ulcers. Patient has significant swelling of the right proximal humerus consistent with humerus fracture. MD complaint: fall Onset (ago): minute(s) Fall from: standing Place fall occurred: home Loss of consciousness: None Prolonged down time: no Symptoms prior to fall: none Context: tripped/slipped Location of injury - extremities: Right: shoulder, arm and thigh Severity: mild Quality: sharp Associated symptoms-after fall: Denies abdominal pain, chest pain, confusion, difficulty walking, headache(s), hematuria, lightheadedness, neck pain, numbness, short of breath, vertigo or weakness Review of Systems Const: Denies: fever(s), chills, body aches, change in appetite, fatigue or malaise ENMT: Denies: throat pain, ear or mastoid pain, nasal discharge or nasal congestion Card: Denies: chest pain or lightheadedness Resp: Denies: dyspnea, productive cough or non-productive cough GI: Denies: abdominal pain : Denies: hematuria Musc: Denies: neck pain Skin/Breast: Denies: rash or pruritus Neuro: Denies: headache(s), difficulty walking, vertigo or confusion PFSH ED PFSH: Medical History Diabetes mellitus Gangrene Hyperlipidemia Hypertension PVD (peripheral vascular disease) Family History Other CAD (coronary artery disease) Cancer Diabetes Stroke Social History Smoking and tobacco status: never smoked Physical Exam Const: COMMON NORMALS: no acute distress GENERAL APPEARANCE: cooperative and comfortable ORIENTATION/CONSCIOUSNESS: Yes awake, Yes oriented to person, Yes oriented to place and Yes oriented to time HENMT: COMMON NORMALS: normocephalic, atraumatic and hearing grossly normal bilaterally HEAD & SCALP: normocephalic and atraumatic Neck/C-Spine: COMMON NORMALS: no JVD Resp: COMMON NORMALS: normal respiratory effort, No retractions, No use of accessory muscles and clear to auscultation bilaterally AUSCULTATION: clear to auscultation bilaterally Cardio: COMMON NORMALS: no JVD, regular rate, regular rhythm and No murmurs present (Cardio) RATE: regular rate RHYTHM: regular rhythm GI: COMMON NORMALS: Soft to palpation and No hepatosplenomegaly present AUSCULTATION: Yes normoactive bowel sounds PALPATION: Yes Soft to palpation, No Tenderness to palpation present (GI), No Guarding due to palpation present (GI) and Yes No hepatosplenomegaly present Extremity: COMMON NORMALS: capillary refill normal, no clubbing, cyanosis or edema, no calf tenderness and no pedal edema NARRATIVE EXTREMITY EXAM: Right proximal humerus swollen consistent with fracture neurovascularly intact distally. Neuro: SENSORIUM/ORIENTATION: Yes oriented to person, Yes oriented to place and Yes oriented to time Skin: COMMON NORMALS: no rashes or lesions noted GENERAL SKIN EXAM: no rashes or lesions noted Course Vital Signs: Vital signs: Vital Signs Temperature 97.5 F L 10/05/20 13:40 Pulse Rate 70 10/05/20 17:12 Respiratory Rate 15 10/05/20 17:12 Blood Pressure 154/72 10/05/20 17:12 Pulse Oximetry 96 10/05/20 17:12 MDM - Fall MDM Narrative: Medical decision making narrative: Proximal humerus fracture. Sling and referred to Ortho. Pain medications given. Reviewed films with Dr. Worley who is on-call. He looked at the films on synapse did not feel anything else needs to be done other than outpatient follow-up through his office. Discharge Plan Discharge Patient Disposition: Home Clinical Impression: Fracture, humerus, anatomical neck, Diabetes mellitus, PVD (peripheral vascular disease) Condition: Stable Prescriptions: New hydrocodone-acetaminophen 5-325 mg tablet 1 tab PO Q6H PRN (Reason: pain) Qty: 14 RF: 0 No Action hydrocodone-acetaminophen 5-325 mg tablet 1 tab PO Q8H PRN (Reason: pain) 7 Days Qty: 21 RF: 0 multivitamin Tablet 1 tab PO QAM RF: 0 Novolin N NPH U-100 Insulin 100 unit/mL Suspension See Rx Instructions .ROUTE .COMPLEX RF: 0 Stool Softener 100 mg Capsule 100 - 200 mg PO BEDTIME RF: 0 clopidogrel 75 mg tablet 75 mg PO DAILY@20 RF: 0 pantoprazole 20 mg tablet,delayed release (DR/EC) 20 mg PO DAILY@07 RF: 0 levofloxacin 500 mg tablet 500 mg PO DAILY RF: 0 metformin 1,000 mg Tablet 1,000 mg PO BID RF: 0 lisinopril 5 mg Tablet 5 mg PO QAM RF: 0 Discharge Orders: Discharge ED (Routine); Ordered 10/05/20 Ordered By: Skinny Mayorga Referrals: Jas Willett MD [Primary Care Provider] - Discharge Diet: Usual diet Discharge Activity: Limit activity as instructed Patient Instructions: Opioid Safety Activity Restrictions/Additional Instructions: No use of the right arm. You should keep your arm in the sling until you see the orthopedic doctor. business analyst manager will make arrangements for appointment with orthopedics next week. Coding Level of Care Code ED Door Clamper for Nazanin Fwmiladis Exam Comprehensive
[2020-10-05 15:27] VITALS: BP 168/105; PULSE 70; RESP 14; O2SAT 100
--- NOTE | 2020-10-05 15:46 | XRR_ITS ---
PROCEDURE INFORMATION: Exam: XR Right Elbow Exam date and time: 10/05/2020 4:40 PM Age: 65 years old Clinical indication: Injury or trauma; Fall; Blunt trauma (contusions or hematomas); Elbow; Right; Patient HX: Humerus FX, best images possible; Additional info: Pain, fall TECHNIQUE: Imaging protocol: XR Right elbow. Views: 1 or 2 views. COMPARISON: No relevant prior studies available. FINDINGS: Bones/joints: No dislocation. The radial head is obscured by positioning and therefore cannot exclude a fracture at this location. Otherwise unremarkable appearance the bony structures. Soft tissues: Unremarkable. XR/XR elbow RT 2V [id number] IMPRESSION: No dislocation. The radial head is obscured by positioning and therefore cannot exclude a fracture at this location. Otherwise unremarkable appearance the bony structures.
[2020-10-05 16:39] VITALS: RESP 20; O2SAT 100
[2020-10-05 17:12] VITALS: BP 154/72; PULSE 70; RESP 15; O2SAT 96
== END 2020-10-05 18:04 | disposition home or self-care (01) ==
PROVIDERS: Emergency Provider Family Medicine; PCP Family Medicine
DX: S42.291A Other displaced fracture of upper end of right humerus, initial encounter for closed fracture (principal); E11.9 Type 2 diabetes mellitus without complications; I73.9 Peripheral vascular disease, unspecified; Z79.02 Long term (current) use of antithrombotics/antiplatelets; Z79.4 Long term (current) use of insulin; E78.5 Hyperlipidemia, unspecified; I10 Essential (primary) hypertension; W01.0XXA Fall on same level from slipping, tripping and stumbling without subsequent striking against object, initial encounter
CPT/HCPCS: 70450; 71045; 72125; 73030; 73070; 73502; 73552; 96374; 96376; 99283; J2270

== ENCOUNTER 2020-10-11 08:33 | Outpatient (CLI) | payer SELFPAY | END 2020-10-11 08:34 | disposition home or self-care (01) | LOC: WOUND 08:33 | PROVIDERS: PCP Family Medicine; Visit Provider Nurse Practitioner Family | DX: E11.621 Type 2 diabetes mellitus with foot ulcer (principal); L97.529 Non-pressure chronic ulcer of other part of left foot with unspecified severity | CPT/HCPCS: 99212 ==

== ENCOUNTER → 2020-10-12 10:36 | Outpatient (BNVA) | payer SELFPAY | PROVIDERS: PCP Family Medicine; Referring Provider Family Medicine; Visit Provider Orthopaedic Surgery | DX: S42.391A Other fracture of shaft of right humerus, initial encounter for closed fracture (principal); Z11.52 Encounter for screening for COVID-19 | CPT/HCPCS: 73030; 87635 ==

== ENCOUNTER 2020-10-16 08:55 | Day surgery (SDC) | payer SELFPAY ==
[2020-10-13 14:30] VITALS: BMI 48.4
[2020-10-16] VITALS (13 sets, daily range): BP systolic 156–186; BP diastolic 68–102; PULSE 68–92; RESP 15–20; TEMP 36.4; O2SAT 92–99
--- NOTE | 2020-10-16 | SCC_ITS ---
Procedure Done: ORIF right proximal humerus fracture 65.6 seconds of fluoroscopic guidance, for a cumulative dose of 7.73 mGy, was provided to Dr. Worley by the radiology department. C-arm images of the RIGHT humerus were saved for the patient's permanent record. CATHRYN
--- NOTE | 2020-10-16 | XR_ITS ---
WS: [id number] INTRAOPERATIVE TECHNIQUE: 4 Spot fluoroscopic images for intraoperative purposes. FLUOROSCOPY TIME: 65.6 seconds CLINICAL INFORMATION: humerus fracture COMPARISON: None. FINDINGS: Intraoperative Plate and screw fixation humeral neck and proximal humeral shaft XR/[place] [id number] IMPRESSION: Images obtained for intraoperative purposes.
[2020-10-16] MEDS: sodium chloride 0.9% 1,000 ML 30 ML IV (09:37)
[2020-10-16 09:56] LABS: Glucose Point of Care 241 mg/dL (70-110)
[2020-10-16 09:59] LABS: Basophils % 0.3 %; Eosinophils # 0.1 10^3/uL (0.0-0.8); Eosinophils % 1.2 %; Hematocrit 39.3 % (37.0-47.0); Hemoglobin 12.5 g/dL (11.5-15.3); Lymphocytes # 1.9 10^3/uL (0.8-4.8); Lymphocytes % 17.8 %; Mean Corpuscular HGB Conc 31.8 g/dL (30.0-36.0); Mean Corpuscular Hemoglobin 27.8 pg (28.0-34.0); Mean Corpuscular Volume 87.5 fL (81-99); Mean Platelet Volume 9.6 fL (7.4-10.4); Monocytes # 0.6 10^3/uL (0.2-0.9); Monocytes % 5.8 %; Neutrophils # 7.94 10^3/uL (1.8-7.7); Neutrophils % 74.5 %; Nucleated Red Blood Cells % 0 %; Platelet Count 461 10^3/cmm (130-400); Red Blood Count 4.49 10^6/uL (4.1-5.3); Red Cell Distribution Width 12.8 % (12.1-15.1); White Blood Count 10.7 10^3/uL (4.0-10.0)
[2020-10-16] MEDS: fentaNYL 50 mcg/mL INJ 2mL IVP ×3 (10:05→13:37)
--- NOTE | 2020-10-16 10:08 | W.PM.OPSUD ---
Surgery/Procedure H&P Update DATE OF PROCEDURE: October 16, 2020 DATE H&P PERFORMED: 09/20/20 H&P UPDATE INFORMATION: I have reviewed H&P completed within last 30 days, I have examined patient prior to procedure and No changes to prior documentation PREOP DIAGNOSIS: right proximal humerus fracture PLANNED PROCEDURE: Operation Date: 10/16/20 11:45 Proposed Procedures p ORIF Proximal Humerus 43563 S42.293A(Right) - Dexter Worley DO
[2020-10-16 10:28] LABS: Blood Urea Nitrogen 14 mg/dL (8-23); Carbon Dioxide 26 mmol/L (22-29); Chloride 99 mmol/L (98-107); Glomerular Filtration Rate 124.2 mL/min (90-130); Glucose 291 mg/dL (65-115); Osmolality Calculated 295 mOsm/kg (285-295); Sodium 137 mmol/L (136-145)
[2020-10-16] MEDS: insulin regular-human 6 UNIT in SYRINGE 1 EACH 1 UNIT IVP (10:31)
[2020-10-16 10:33] LABS: Anion Gap 16.5 (5-19); Potassium 4.5 mmol/L (3.5-5.1)
--- NOTE | 2020-10-16 10:41 | P.ANESASSM_ITS ---
Pre-Anesthetic Assessment Pre-Anesthetic Assessment: Height/Weight: Height 1.68 m Weight 136.078 kg Resp Pulse Ox 18 96 10/16/20 10:05 10/16/20 10:05 Preop Diagnosis: right proximal humerus fracture Proposed Procedure: Operation Date: 10/16/20 11:45 Proposed Procedures p ORIF Proximal Humerus 15467 S42.293A(Right) - Dexter H Brunilda, DO Was Beta Lauren taken within 24 hours: N/A Was Clonidine taken within 24 hours: N/A Last intake: Intake Last Liquid Date 10/15/20 Last Liquid Time 18:00 Last Solid Date 10/15/20 Last Solid Time 18:00 Social: Social History: No alcohol and No tobacco Exam: Pre-Anes Outpt Exam: alert, oriented x 3, clear to auscultation bilaterally and regular rate & rhythm Airway: Submandibular: WNL Cervical ROM: WNL MP: 2 Dentition: Full CV/HEM: CV/HEM: PVD Metabolic: Metabolic: DM and Morbid obesity Neuropsych: Neuropsych: Neuropathy Anesthetic Plan: ASA status: 3 Anesthesia: General Other: discussed interscalene nerve blk Risk of > 500 ml blood loss (7ml/kg in children): No Meds/Allergies Current Medications: Current Medications Generic Name Dose Route Start Last Admin Trade Name Freq PRN Reason Stop Dose Admin Fentanyl 50 mcg 10/16/20 09:16 10/16/20 10:05 Fentanyl 50 Mcg/ Ml Inj 2ml IVP 50 mcg Q10M PRN Administration Preop Pain Sodium Chloride 1,000 mls @ 30 ml s/hr 10/16/20 09:30 10/16/20 09:37 Sodium Chloride 0.9% IV 10/17/20 09:29 30 mls/hr .Q24H GORDO Administration PFSH Anesthesia PFSH: Medical History Diabetes mellitus Gangrene Hyperlipidemia Hypertension PVD (peripheral vascular disease) Family History Other CAD (coronary artery disease) Cancer Diabetes Stroke Social History Smoking and tobacco status: never smoked Data Anesthesia CBC & Chem 7: 10/16/20 08:46 10/16/20 08:46 Other Labs: Laboratory Results - last 48 hr 10/16/20 10/16/20 10/16/20 08:46 08:46 09:47 WBC 10.7 H RBC 4.49 Hgb 12.5 Hct 39.3 MCV 87.5 MCH 27.8 L MCHC 31.8 RDW 12.8 Plt Count 461 H MPV 9.6 Neut % (Auto) 74.5 Lymph % (Auto) 17.8 Dillon % (Auto) 5.8 Eos % (Auto) 1.2 Baso % (Auto) 0.3 Neut # (Auto) 7.94 H Lymph # (Auto) 1.9 Dillon # (Auto) 0.6 Eos # (Auto) 0.1 Baso # (Auto) 0.0 Nucleated RBC % (auto) 0 Nucleated RBCs # 0.0 Sodium 137 Potassium 4.5 Chloride 99 Carbon Dioxide 26 Anion Gap 16.5 BUN 14 Creatinine 0.5 GFR Calculation 124.2 Glucose 291 H POC Glucose 241 H Calculated Osmolality 295 Calcium 9.0 Cardiac Studies: No Data to Display
--- NOTE | 2020-10-16 13:30 | PM.OP ---
Operative Report Date of procedure: October 16, 2020 Pre-op Diagnosis: right proximal humerus fracture Post-op diagnosis: same Procedure Done: ORIF right proximal humerus fracture Surgeon: Dexter Worley Anesthesia: General Estimated blood loss (mL): 50 Condition: stable Disposition: PACU Procedure: ORIF right proximal humerus fracture Patient was brought to the operative suite placed in the supine position on the beach chair. After undergoing anesthesia. All areas impingement well-padded patient's prepped and draped normal sterile fashion. Skin is made over the right shoulder. The deltopectoral interval was identified and retractors were placed. Fracture was identified reduced. Then a Isabelle proximal humerus plate was placed multiple locking screws were placed up in the head and into the shaft. AP lateral fluoroscopy ensured that the screws and fracture in adequate position. Wounds were irrigated. The wound was closed with 0 Vicryl 2-0 Vicryl and myranda. Sterile dressings were applied and the patient was transferred to the PACU in stable condition.
[2020-10-16] MEDS: morphine 4 mg/mL SDV 1 mL 2 MG IVP (13:50)
--- NOTE | 2020-10-16 14:05 | SUR.PHASEI ---
PT AWAKE ALERT , RATES PAIN AT 10 AND SHE ALSO STATES HER PAIN WAS A 12 ON ADMIT. SEE PAIN MEDS GIVEN PT OK WITH TAKING PO PAIN MED IN OPS, DR RAMOS AT BEDSIDE AND TRACER CHECK 231 PT HAD INSULIN EARLIER AND OK TO TAKE HOME INSULIN AT HOME.
[2020-10-16 14:07] LABS: Glucose Point of Care 231 mg/dL (70-110)
[2020-10-16] MEDS: HYDROcodone-acetaminophen 5-325 mg Tablet 2 TAB PO (14:45)
[2020-10-16] MEDS: ondansetron 2 mg/ML SDV 2 mL 4 MG IVP (15:00)
--- NOTE | 2020-10-16 15:34 | ANES.PROC ---
Anesthesia Procedures Procedure/Date: 10/16/20 Nerve Block ^: Nerve Block 1: Main Anesthesia: general anesthesia Time Out Performed: Yes Consent: requested by attending/covering physician, from patient, risks and benefits reviewed and patient agrees to proceed Nerve block location: interscalene (right) Anesthesia monitors applied: pulse oximetry, EKG, BP cuff and oxygen Nerve block position: semi sitting Anesthetic Used: ropivicaine 0.5% Amount of anesthesia used (mL): 30 Ultrasound used to: recognize landmarks and visualize and ID brachial plexus Nerve Stimulator Used?: No Interscalene/Femoral BLK: 2 stimuplex 22 g needle used for position and inplane approach and visualize local anesthetic spread Injection: neg aspiration of heme Patient Tolerated Procedure: well Complications: none
--- NOTE | 2020-10-16 15:39 | ANE.PACU2 ---
Inpatient post-anesthesia follow up: Airway intact: Yes Vital signs: Temperature 97.5 F Pulse Rate 70 Respiratory Rate 20 Blood Pressure 177/81 Pulse Oximetry 95 Oxygen Delivery Me thod Room Air Oxygen Flow Rate 6 Fraction of Inspir ed Oxygen Hydration adequate: Yes Nausea and vomiting: No Pain level: 2 Mental status: Baseline
--- NOTE | 2020-10-17 18:10 | W.PM.OPSUD ---
Surgery/Procedure H&P Update DATE OF PROCEDURE: October 17, 2020 DATE H&P PERFORMED: 09/20/20 H&P UPDATE INFORMATION: I have reviewed H&P completed within last 30 days, I have examined patient prior to procedure and No changes to prior documentation PREOP DIAGNOSIS: right proximal humerus fracture PLANNED PROCEDURE: Operation Date: 10/16/20 11:45 Proposed Procedures p ORIF Proximal Humerus 53352 S42.293A(Right) - Dexter Worley DO
== END 2020-10-16 16:33 | disposition home or self-care (01) ==
PROVIDERS: PCP Family Medicine; Visit Provider Orthopaedic Surgery
PROC: (CPT 23615; principal; 2020-10-16 11:35)
DX: S42.201A Unspecified fracture of upper end of right humerus, initial encounter for closed fracture (principal); X58.XXXA Exposure to other specified factors, initial encounter; E11.40 Type 2 diabetes mellitus with diabetic neuropathy, unspecified; Z79.84 Long term (current) use of oral hypoglycemic drugs; E78.5 Hyperlipidemia, unspecified; I10 Essential (primary) hypertension; Z82.49 Family history of ischemic heart disease and other diseases of the circulatory system; Z83.3 Family history of diabetes mellitus; Z82.3 Family history of stroke; E66.01 Morbid (severe) obesity due to excess calories; Z68.42 Body mass index [BMI] 45.0-49.9, adult
CPT/HCPCS: 24515; 36415; 36416; 64415; 73060; 76000; 76942; 80048; 82962; 85025; 96374; C1713; J1815; J2270; J2405; J2704; J2710; J2795; J3010; J3490; J7030

== ENCOUNTER 2020-10-25 08:33 | Outpatient (CLI) | payer SELFPAY | END 2020-10-25 08:34 | disposition home or self-care (01) | LOC: WOUND 08:34 | PROVIDERS: PCP Family Medicine; Visit Provider Thoracic Surgery (Cardiothoracic Vascular Surgery) | DX: E11.621 Type 2 diabetes mellitus with foot ulcer (principal); L97.522 Non-pressure chronic ulcer of other part of left foot with fat layer exposed; Z89.422 Acquired absence of other left toe(s) | CPT/HCPCS: 11042; 87070; 87077; 87186 ==

== ENCOUNTER 2020-11-01 08:21 | Outpatient (CLI) | payer OTHER, SELFPAY | END 2020-11-01 08:22 | disposition home or self-care (01) | LOC: WOUND 08:22 | PROVIDERS: PCP Family Medicine; Visit Provider Thoracic Surgery (Cardiothoracic Vascular Surgery) | DX: E11.621 Type 2 diabetes mellitus with foot ulcer (principal); L97.522 Non-pressure chronic ulcer of other part of left foot with fat layer exposed; Z89.422 Acquired absence of other left toe(s) | CPT/HCPCS: 11042 ==

== ENCOUNTER 2020-11-04 13:37 | Emergency (ER) | payer OTHER, SELFPAY ==
[2020-11-04 13:41] VITALS: BP 162/89; PULSE 88; RESP 14; TEMP 36.4; O2SAT 95; BMI 47.9
--- NOTE | 2020-11-04 13:46 | CTR_ITS ---
PROCEDURE INFORMATION: Exam: CT Head Without Contrast Exam date and time: 11/04/2020 1:49 PM Age: 65 years old Clinical indication: Altered mental status. Seizure. TECHNIQUE: Imaging protocol: Computed tomography of the head without contrast. Radiation optimization: All CT scans at this facility use at least one of these dose optimization techniques: automated exposure control; mA and/or kV adjustment per patient size (includes targeted exams where dose is matched to clinical indication); or iterative reconstruction. COMPARISON: CT head wo con* [id number] 10/05/2020 2:21 PM RADIATION DOSE METRICS: Total DLP (mGy-cm): 919.04 FINDINGS: Brain: No acute intracranial hemorrhage. Unchanged lacunar infarct in the left basal ganglia. No mass, mass effect or midline shift. There is no evidence of acute large vessel infarct. The subcortical and periventricular white matter is normal in attenuation. The posterior fossa is grossly unremarkable; however, it is partially obscurred by beam hardening artifact. Cerebral ventricles: The ventricles are normal in configuration. Bones/joints: No acute fracture is seen. Paranasal sinuses: The visualized paranasal sinuses are clear. Mastoid air cells: No mastoid effusion. Orbital cavity: The visualized orbits are unremarkable. CT/CT head wo con* [id number] IMPRESSION: No acute intracranial abnormality. Radiation Dose CTDIVOL = (mGy): DLP = 919.04 (mGy-cm)
--- NOTE | 2020-11-04 13:47 | ECG_ITS ---
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 Measurements Intervals [place] Rate: 94 P: 63 MA: 156 QRS: 11 QRSD: 101 T: 41 QT: 351 QTc: 439 Interpretive Statements SINUS RHYTHM Compared to ECG 09/22/2020 11:31:46 Sinus arrhythmia no longer present Electronically Signed On 11-05-2020 11:44:05 CDT by Ольга Gaitan M.D. [email or web address]
--- NOTE | 2020-11-04 13:47 | XRR_ITS ---
PROCEDURE INFORMATION: Exam: XR Chest Exam date and time: 11/04/2020 1:49 PM Age: 65 years old Clinical indication: Altered mental status. Seizure. TECHNIQUE: Imaging protocol: XR of the chest. Views: 1 view. COMPARISON: CR XR chest 1V portable [id number] 10/05/2020 2:18 PM FINDINGS: Lungs: There is mild patchy opacity at the lateral left base that could reflect atelectasis or developing infiltrate. Pleural spaces: No pleural effusion. No pneumothorax. Heart/Mediastinum: Cardiac silhouette is unchanged. No gross evidence of pneumomediastinum. Bones/joints: No gross fracture. XR/XR chest 1V portable [id number] IMPRESSION: There is mild patchy opacity at the lateral left base that could reflect atelectasis or developing infiltrate. Consider CT to further assess if clinically warranted.
--- NOTE | 2020-11-04 13:49 | W.ED.AMS ---
HPI - Altered Mental Status General: Chief Complaint: Seizure Stated Complaint: SEIZURES Time Seen by Provider: 11/04/20 13:38 Source: EMS Mode of arrival: EMS Limitations: altered mental status History of Present Illness: HPI narrative: Naida is a 65-year-old female brought in by EMS with report of seizure. By report the patient apparently deviated her gaze to the left became stiff and then shook and had a seizure lasting approximately 2 minutes. EMS was called and arrived and the patient was post ictal. The patient was incontinent of urine. Patient vomited. EMS gave 4 of Zofran shortly before arrival but then the patient had another 2-minute seizure that was described exactly like the previous seizure. She has no history of seizures. The other history able to be given by EMS as the patient recently had an orthopedic surgery to her right shoulder. Review of Systems General: Reports: ROS unobtainable due to mental status PFS ED PFSH: Medical History Diabetes mellitus Gangrene Hyperlipidemia Hypertension PVD (peripheral vascular disease) Family History Other CAD (coronary artery disease) Cancer Diabetes Stroke Social History Smoking and tobacco status: never smoked Physical Exam Const: COMMON NORMALS: alert HENMT: COMMON NORMALS: normocephalic, atraumatic, external ears normal, EAC's normal and Normal external nose present HEAD & SCALP: normal to inspection, normocephalic and atraumatic FACE & SINUS: normal facial exam and face symmetric NOSE: Normal external nose present and Normal nares present EXTERNAL EAR: Yes external ears normal EXTERNAL AUDITORY CANAL: EAC's normal MOUTH: Normal oral and palatal mucosa present, lip normal and tongue normal Eye: COMMON NORMALS: Equal, round and reactive pupils present and conjunctivae normal GENERAL EYE: appearance normal, both eyes and all related structures ALIGNMENT: Yes alignment normal PERIORBITAL: periorbital findings normal EYELID: eyelids normal CONJUNCTIVA: Yes conjunctivae normal SCLERA: sclerae normal PUPIL: Yes Equal, round and reactive pupils present Neck/C-Spine: COMMON NORMALS: full ROM, no lymphadenopathy, supple, no meningeal signs and no JVD GENERAL: Yes normal visual inspection and Yes trachea midline Chest: COMMONS NORMALS: normal inspection of the chest and normal palpation of entire chest wall Resp: COMMON NORMALS: normal respiratory effort, No retractions, No use of accessory muscles and clear to auscultation bilaterally EFFORT & INSPECTION: Yes able to speak in complete sentences and Yes symmetric chest movement AUSCULTATION: clear to auscultation bilaterally, no crackles, no rales, no rhonchi and no wheezes Cardio: COMMON NORMALS: no JVD, regular rate, regular rhythm, S1 normal heart sound present and S2 normal heart sound present RATE: regular rate RHYTHM: regular rhythm HEART SOUNDS: S1 normal heart sound present, S2 normal heart sound present, no click, no gallops, no murmurs and no rubs GI: COMMON NORMALS: Soft to palpation and No hepatosplenomegaly present PALPATION: Yes Soft to palpation, No Tenderness to palpation present (GI), No Guarding due to palpation present (GI), No Rigid due to palpation, Yes No hepatosplenomegaly present, No Hernia present, No Palpable mass present and No Pulsatile mass present : COMMON NORMALS: Yes no CVA tenderness BLADDER/KIDNEY EXAM: Yes no CVA tenderness EXTERNAL FEMALE EXAM: No Hernia present Back/Pelvis: COMMON NORMALS: no CVA tenderness, thoracic and lumbar spine normal to inspection, no thoracic nor lumbar tenderness and thoraco-lumbar ROM normal Extremity: COMMON NORMALS: normal to inspection, full ROM, capillary refill normal, no joint enlargement, no clubbing, cyanosis or edema and no calf tenderness Neuro: MARLON COMA SCALE: document GCS findings [place] coma scale eye opening: To sound Marlon coma scale verbal response: Confused Marlon coma scale motor response: Localising Marlon coma scale total score: 12 COMMON NORMALS: moves all extremities, no focal motor deficits and no sensory deficits noted SENSORIUM/ORIENTATION: Yes alert MENINGEAL SIGNS: Yes no meningeal signs Skin: COMMON NORMALS: no rashes or lesions noted, turgor normal, no jaundice, no petechiae and no mottling GENERAL SKIN EXAM: no rashes or lesions noted and turgor normal Course ED course: 1416 -patient's alertness is improved at this time. She is following some basic commands. Per my review the CT head shows no sign of hemorrhage. We will continue with evaluation and I will load with IV Keppra as the patient's had 2 seizures today. Vital Signs: Vital signs: Vital Signs Temperature 97.5 F L 11/04/20 13:41 Pulse Rate 89 11/04/20 14:30 Respiratory Rate 14 11/04/20 14:30 Blood Pressure 173/89 11/04/20 14:30 Pulse Oximetry 93 11/04/20 14:30 MDM - Altered Mental Status MDM Narrative: Medical decision making narrative: 1421 -Case reviewed by Dr. Lopez at [facility]. He understands that our hospitalist Dr. Barnes is uncomfortable keeping the patient here as we have no neurology coverage or ability to do EEGs. The patient's family has arrived and stated that she had strokelike symptoms that lasted for a undetermined amount of time last week. The CT does not show anything but I am suspicious that what ever caused the symptoms may also be causing her seizures. This time the patient's been loaded with Keppra and given a small dose of Ativan. She is resting comfortably. She is alert and oriented x3 with a GCS of 15. She shows no sign of stroke at this time. Continue to hydrate her gently and transfer her to [facility] where she can be evaluated by a neurologist. Lab Data: Attestation: I reviewed the patient's lab results. Labs: Lab Results 11/04/20 11/04/20 11/04/20 Range/Units 14:12 14:19 14:19 WBC (4.0-10.0) 10^3/ uL RBC (4.1-5.3) 10^6/u L Hgb (11.5-15.3) g/dL Hct (37.0-47.0) % MCV (81-99) fL MCH (28.0-34.0) pg MCHC (30.0-36.0) g/dL RDW (12.1-15.1) % Plt Count (130-400) 10^3/c mm MPV (7.4-10.4) fL Neut % (Auto) % Lymph % (Auto) % [place] % (Auto) % Eos % (Auto) % Baso % (Auto) % Neut # (Auto) (1.8-7.7) 10^3/u L Lymph # (Auto) (0.8-4.8) 10^3/u L [place] # (Auto) (0.2-0.9) 10^3/u L Eos # (Auto) (0.0-0.8) 10^3/u L Baso # (Auto) (0.0-0.1) 10^3/u L Nucleated RBC % (a uto) % Nucleated RBCs # /100WBC PT (12.1-14.9) SECO NDS INR (0.8-1.2) APTT (23.9-36.7) SECO NDS Specimen Type Arterial Sample Site Radial, left ABG pH 7.32 L (7.35-7.45) ABG pCO2 37.7 (35-45) mmHg ABG pO2 66.2 L (80.0-100.0) mmH g ABG HCO3 19.2 L (22-26) mmol/L ABG O2 Saturation 92.7 ABG Base Excess -6.3 L (-2.0-2.0) mmol/ L Aristides Test Pos A-a O2 Gradient 4.7 L (5-10) mmHg Hematocrit 38.8 (37-47) % Hgb O2 Saturation 90.9 L (95-100) % Carboxyhemoglobin 1.0 (0.4-20.1) %THgb Methemoglobin 1.0 (0.4-1.5) % Total Hemoglobin 12.6 (12-16) g/dL Sodium 140.0 (131-143) mmol/L Potassium 4.0 (3.5-5.0) mmol/L Glucose 299.0 H (70-115) mg/dL Ionized Calcium 1.1 (1.1-1.4) mmol/L O2 Delivery Device Room air FiO2 21.0 % Yard Loader Operator ID glc Chloride (98-107) mmol/L Carbon Dioxide (22-29) mmol/L Anion Gap (5-19) BUN (8-23) mg/dL Creatinine (0.5-0.9) mg/dL GFR Calculation (90-130) mL/min POC Glucose (70-110) mg/dL Calculated Osmolal ity (285-295) mOsm/k g Lactic Acid (0.5-2.2) mmol/L Calcium (8.5-10.5) mg/dL Magnesium (1.7-2.3) mg/dL Total Bilirubin (0.15-1.2) mg/dL AST (0-32) U/L ALT (0-33) U/L Alkaline Phosphata se (35-105) IU/L Ammonia (11-51) umol/L Creatine Kinase (26-192) U/L Troponin T Baselin e (0-10) ng/L Total Protein (6.6-8.7) g/dL Albumin (3.5-5.2) g/dL Globulin (1.3-4.6) g/dL Urine Color Straw (Yellow) Urine Appearance Clear (CLEAR) Urine pH 5 (5-7) Ur Specific Gravit y 1.020 (1.005-1.030) Urine Protein 1+ H (Negative) Urine Glucose (UA) 2+ (Normal) Urine Ketones 1+ H (Negative) Urine Blood Neg (Negative) Urine Nitrate Negative (Negative) Urine Bilirubin Neg (Negative) Urine Urobilinogen Norm (Negative) mg/dL Ur Leukocyte Jossy ase Negative (Negative) Urine RBC None (0-2) /hpf Urine WBC 0-4 H (0-5) /hpf Ur Squamous Epith Cells 0-4 H (0-5) /hpf Amorphous Sediment Not Reportable Urine Bacteria Trace (NONE) /hpf Hyaline Casts 0-4 H /lpf Urine Mucus 1+ /hpf Urine Opiates Scre en Positive H (Negative) ng/mL Ur Barbiturates Sc reen Negative (Negative) ng/mL Ur Phencyclidine S crn Negative (Negative) ng/mL Ur Amphetamines Sc reen Negative (Negative) ng/mL U Benzodiazepines Scrn Negative (Negative) ng/mL Urine Cocaine Scre en Negative (Negative) ng/mL U Marijuana (THC) Screen Negative (Negative) ng/mL Ethyl Alcohol (0-10) mg/dL Serum Ketones (Negative) 11/04/20 11/04/20 11/04/20 Range/Units 14:22 14:30 14:30 WBC 13.9 H (4.0-10.0) 10^3/ uL RBC 4.58 (4.1-5.3) 10^6/u L Hgb 12.6 (11.5-15.3) g/dL Hct 40.3 (37.0-47.0) % MCV 88.0 (81-99) fL MCH 27.5 L (28.0-34.0) pg MCHC 31.3 (30.0-36.0) g/dL RDW 12.9 (12.1-15.1) % Plt Count 433 H (130-400) 10^3/c mm MPV 9.8 (7.4-10.4) fL Neut % (Auto) 77.1 % Lymph % (Auto) 13.3 % [place] % (Auto) 5.8 % Eos % (Auto) 1.3 % Baso % (Auto) 0.4 % Neut # (Auto) 10.73 H (1.8-7.7) 10^3/u L Lymph # (Auto) 1.9 (0.8-4.8) 10^3/u L [place] # (Auto) 0.8 (0.2-0.9) 10^3/u L Eos # (Auto) 0.2 (0.0-0.8) 10^3/u L Baso # (Auto) 0.1 (0.0-0.1) 10^3/u L Nucleated RBC % (a uto) 0 % Nucleated RBCs # 0.0 /100WBC PT 13.50 (12.1-14.9) SECO NDS INR 1.00 (0.8-1.2) APTT 31.2 (23.9-36.7) SECO NDS Specimen Type Sample Site ABG pH (7.35-7.45) ABG pCO2 (35-45) mmHg ABG pO2 (80.0-100.0) mmH g ABG HCO3 (22-26) mmol/L ABG O2 Saturation ABG Base Excess (-2.0-2.0) mmol/ L Aristides Test A-a O2 Gradient (5-10) mmHg Hematocrit (37-47) % Hgb O2 Saturation (95-100) % Carboxyhemoglobin (0.4-20.1) %THgb Methemoglobin (0.4-1.5) % Total Hemoglobin (12-16) g/dL Sodium (131-143) mmol/L Potassium (3.5-5.0) mmol/L Glucose (70-115) mg/dL Ionized Calcium (1.1-1.4) mmol/L O2 Delivery Device FiO2 % Yard Loader Operator ID Chloride (98-107) mmol/L Carbon Dioxide (22-29) mmol/L Anion Gap (5-19) BUN (8-23) mg/dL Creatinine (0.5-0.9) mg/dL GFR Calculation (90-130) mL/min POC Glucose 277 H (70-110) mg/dL Calculated Osmolal ity (285-295) mOsm/k g Lactic Acid (0.5-2.2) mmol/L Calcium (8.5-10.5) mg/dL Magnesium (1.7-2.3) mg/dL Total Bilirubin (0.15-1.2) mg/dL AST (0-32) U/L ALT (0-33) U/L Alkaline Phosphata se (35-105) IU/L Ammonia (11-51) umol/L Creatine Kinase (26-192) U/L Troponin T Baselin e (0-10) ng/L Total Protein (6.6-8.7) g/dL Albumin (3.5-5.2) g/dL Globulin (1.3-4.6) g/dL Urine Color (Yellow) Urine Appearance (CLEAR) Urine pH (5-7) Ur Specific Gravit y (1.005-1.030) Urine Protein (Negative) Urine Glucose (UA) (Normal) Urine Ketones (Negative) Urine Blood (Negative) Urine Nitrate (Negative) Urine Bilirubin (Negative) Urine Urobilinogen (Negative) mg/dL Ur Leukocyte Jossy ase (Negative) Urine RBC (0-2) /hpf Urine WBC (0-5) /hpf Ur Squamous Epith Cells (0-5) /hpf Amorphous Sediment Urine Bacteria (NONE) /hpf Hyaline Casts /lpf Urine Mucus /hpf Urine Opiates Scre en (Negative) ng/mL Ur Barbiturates Sc reen (Negative) ng/mL Ur Phencyclidine S crn (Negative) ng/mL Ur Amphetamines Sc reen (Negative) ng/mL U Benzodiazepines Scrn (Negative) ng/mL Urine Cocaine Scre en (Negative) ng/mL U Marijuana (THC) Screen (Negative) ng/mL Ethyl Alcohol (0-10) mg/dL Serum Ketones (Negative) 11/04/20 11/04/20 11/04/20 Range/Units 14:30 14:30 14:30 WBC (4.0-10.0) 10^3/ uL RBC (4.1-5.3) 10^6/u L Hgb (11.5-15.3) g/dL Hct (37.0-47.0) % MCV (81-99) fL MCH (28.0-34.0) pg MCHC (30.0-36.0) g/dL RDW (12.1-15.1) % Plt Count (130-400) 10^3/c mm MPV (7.4-10.4) fL Neut % (Auto) % Lymph % (Auto) % [place] % (Auto) % Eos % (Auto) % Baso % (Auto) % Neut # (Auto) (1.8-7.7) 10^3/u L Lymph # (Auto) (0.8-4.8) 10^3/u L [place] # (Auto) (0.2-0.9) 10^3/u L Eos # (Auto) (0.0-0.8) 10^3/u L Baso # (Auto) (0.0-0.1) 10^3/u L Nucleated RBC % (a uto) % Nucleated RBCs # /100WBC PT (12.1-14.9) SECO NDS INR (0.8-1.2) APTT (23.9-36.7) SECO NDS Specimen Type Sample Site ABG pH (7.35-7.45) ABG pCO2 (35-45) mmHg ABG pO2 (80.0-100.0) mmH g ABG HCO3 (22-26) mmol/L ABG O2 Saturation ABG Base Excess (-2.0-2.0) mmol/ L Aristides Test A-a O2 Gradient (5-10) mmHg Hematocrit (37-47) % Hgb O2 Saturation (95-100) % Carboxyhemoglobin (0.4-20.1) %THgb Methemoglobin (0.4-1.5) % Total Hemoglobin (12-16) g/dL Sodium 135 L (131-143) mmol/L Potassium 4.2 (3.5-5.0) mmol/L Glucose 281 H (70-115) mg/dL Ionized Calcium (1.1-1.4) mmol/L O2 Delivery Device FiO2 % Yard Loader Operator ID Chloride 97 L (98-107) mmol/L Carbon Dioxide 18 L (22-29) mmol/L Anion Gap 24.2 H (5-19) BUN 13 (8-23) mg/dL Creatinine 0.6 (0.5-0.9) mg/dL GFR Calculation 100.6 (90-130) mL/min POC Glucose (70-110) mg/dL Calculated Osmolal ity 290 (285-295) mOsm/k g Lactic Acid 8.2 H* (0.5-2.2) mmol/L Calcium 8.5 (8.5-10.5) mg/dL Magnesium 1.7 (1.7-2.3) mg/dL Total Bilirubin 0.2 (0.15-1.2) mg/dL AST 15 (0-32) U/L ALT 17 (0-33) U/L Alkaline Phosphata se 103 (35-105) IU/L Ammonia (11-51) umol/L Creatine Kinase 32 (26-192) U/L Troponin T Baselin e (0-10) ng/L Total Protein 6.9 (6.6-8.7) g/dL Albumin 4.0 (3.5-5.2) g/dL Globulin 2.9 (1.3-4.6) g/dL Urine Color (Yellow) Urine Appearance (CLEAR) Urine pH (5-7) Ur Specific Gravit y (1.005-1.030) Urine Protein (Negative) Urine Glucose (UA) (Normal) Urine Ketones (Negative) Urine Blood (Negative) Urine Nitrate (Negative) Urine Bilirubin (Negative) Urine Urobilinogen (Negative) mg/dL Ur Leukocyte Jossy ase (Negative) Urine RBC (0-2) /hpf Urine WBC (0-5) /hpf Ur Squamous Epith Cells (0-5) /hpf Amorphous Sediment Urine Bacteria (NONE) /hpf Hyaline Casts /lpf Urine Mucus /hpf Urine Opiates Scre en (Negative) ng/mL Ur Barbiturates Sc reen (Negative) ng/mL Ur Phencyclidine S crn (Negative) ng/mL Ur Amphetamines Sc reen (Negative) ng/mL U Benzodiazepines Scrn (Negative) ng/mL Urine Cocaine Scre en (Negative) ng/mL U Marijuana (THC) Screen (Negative) ng/mL Ethyl Alcohol < 10 (0-10) mg/dL Serum Ketones Negative (Negative) 11/04/20 11/04/20 Range/Units 14:30 14:30 WBC (4.0-10.0) 10^3/ uL RBC (4.1-5.3) 10^6/u L Hgb (11.5-15.3) g/dL Hct (37.0-47.0) % MCV (81-99) fL MCH (28.0-34.0) pg MCHC (30.0-36.0) g/dL RDW (12.1-15.1) % Plt Count (130-400) 10^3/c mm MPV (7.4-10.4) fL Neut % (Auto) % Lymph % (Auto) % [place] % (Auto) % Eos % (Auto) % Baso % (Auto) % Neut # (Auto) (1.8-7.7) 10^3/u L Lymph # (Auto) (0.8-4.8) 10^3/u L [place] # (Auto) (0.2-0.9) 10^3/u L Eos # (Auto) (0.0-0.8) 10^3/u L Baso # (Auto) (0.0-0.1) 10^3/u L Nucleated RBC % (a uto) % Nucleated RBCs # /100WBC PT (12.1-14.9) SECO NDS INR (0.8-1.2) APTT (23.9-36.7) SECO NDS Specimen Type Sample Site ABG pH (7.35-7.45) ABG pCO2 (35-45) mmHg ABG pO2 (80.0-100.0) mmH g ABG HCO3 (22-26) mmol/L ABG O2 Saturation ABG Base Excess (-2.0-2.0) mmol/ L Aristides Test A-a O2 Gradient (5-10) mmHg Hematocrit (37-47) % Hgb O2 Saturation (95-100) % Carboxyhemoglobin (0.4-20.1) %THgb Methemoglobin (0.4-1.5) % Total Hemoglobin (12-16) g/dL Sodium (131-143) mmol/L Potassium (3.5-5.0) mmol/L Glucose (70-115) mg/dL Ionized Calcium (1.1-1.4) mmol/L O2 Delivery Device FiO2 % Yard Loader Operator ID Chloride (98-107) mmol/L Carbon Dioxide (22-29) mmol/L Anion Gap (5-19) BUN (8-23) mg/dL Creatinine (0.5-0.9) mg/dL GFR Calculation (90-130) mL/min POC Glucose (70-110) mg/dL Calculated Osmolal ity (285-295) mOsm/k g Lactic Acid (0.5-2.2) mmol/L Calcium (8.5-10.5) mg/dL Magnesium (1.7-2.3) mg/dL Total Bilirubin (0.15-1.2) mg/dL AST (0-32) U/L ALT (0-33) U/L Alkaline Phosphata se (35-105) IU/L Ammonia 21 (11-51) umol/L Creatine Kinase (26-192) U/L Troponin T Baselin e 9 (0-10) ng/L Total Protein (6.6-8.7) g/dL Albumin (3.5-5.2) g/dL Globulin (1.3-4.6) g/dL Urine Color (Yellow) Urine Appearance (CLEAR) Urine pH (5-7) Ur Specific Gravit y (1.005-1.030) Urine Protein (Negative) Urine Glucose (UA) (Normal) Urine Ketones (Negative) Urine Blood (Negative) Urine Nitrate (Negative) Urine Bilirubin (Negative) Urine Urobilinogen (Negative) mg/dL Ur Leukocyte Jossy ase (Negative) Urine RBC (0-2) /hpf Urine WBC (0-5) /hpf Ur Squamous Epith Cells (0-5) /hpf Amorphous Sediment Urine Bacteria (NONE) /hpf Hyaline Casts /lpf Urine Mucus /hpf Urine Opiates Scre en (Negative) ng/mL Ur Barbiturates Sc reen (Negative) ng/mL Ur Phencyclidine S crn (Negative) ng/mL Ur Amphetamines Sc reen (Negative) ng/mL U Benzodiazepines Scrn (Negative) ng/mL Urine Cocaine Scre en (Negative) ng/mL U Marijuana (THC) Screen (Negative) ng/mL Ethyl Alcohol (0-10) mg/dL Serum Ketones (Negative) Imaging Data^: CT Head: Radiologist's impression: [address] [place] [address] CT Scan Report Signed Patient: Naida Arevalo Unit #: [id number] : 1955 Age/Sex: 65 / F ADM Date: 11/04/20 Loc: ER Room/Bed: Attending Dr: Ordering Provider/Ordering MD: Bushra Barrientos DO Date of Service: 11/04/20 Procedure(s): CT head wo con* [id number] Accession Number(s): [id number] Report Number: [id number] PROCEDURE INFORMATION: Exam: CT Head Without Contrast Exam date and time: 11/04/2020 1:49 PM Age: 65 years old Clinical indication: Altered mental status. Seizure. TECHNIQUE: Imaging protocol: Computed tomography of the head without contrast. Radiation optimization: All CT scans at this facility use at least one of these dose optimization techniques: automated exposure control; mA and/or kV adjustment per patient size (includes targeted exams where dose is matched to clinical indication); or iterative reconstruction. COMPARISON: CT head wo con* [id number] 10/05/2020 2:21 PM RADIATION DOSE METRICS: Total DLP (mGy-cm): 919.04 FINDINGS: Brain: No acute intracranial hemorrhage. Unchanged lacunar infarct in the left basal ganglia. No mass, mass effect or midline shift. There is no evidence of acute large vessel infarct. The subcortical and periventricular white matter is normal in attenuation. The posterior fossa is grossly unremarkable; however, it is partially obscurred by beam hardening artifact. Cerebral ventricles: The ventricles are normal in configuration. Bones/joints: No acute fracture is seen. Paranasal sinuses: The visualized paranasal sinuses are clear. Mastoid air cells: No mastoid effusion. Orbital cavity: The visualized orbits are unremarkable. CT/CT head wo con* [id number] IMPRESSION: No acute intracranial abnormality. Radiation Dose CTDIVOL = (mGy): DLP = 919.04 (mGy-cm) Dictated By: Lico Estrella Signed By: Lico Estrella Signed Date/Time: 11/04/20 1439 DD/ 1437 CXR: Radiologist's impression: [facility] [address] [place] [address] XRay Report Signed Patient: Naida Arevalo Unit #: [id number] : 1955 Age/Sex: 65 / F ADM Date: 11/04/20 Loc: ER Room/Bed: Attending Dr: Ordering Provider/Ordering MD: Bushra Barrientos DO Date of Service: 11/04/20 Procedure(s): XR chest 1V portable [id number] Accession Number(s): [id number] Report Number: [id number] PROCEDURE INFORMATION: Exam: XR Chest Exam date and time: 11/04/2020 1:49 PM Age: 65 years old Clinical indication: Altered mental status. Seizure. TECHNIQUE: Imaging protocol: XR of the chest. Views: 1 view. COMPARISON: CR XR chest 1V portable [id number] 10/05/2020 2:18 PM FINDINGS: Lungs: There is mild patchy opacity at the lateral left base that could reflect atelectasis or developing infiltrate. Pleural spaces: No pleural effusion. No pneumothorax. Heart/Mediastinum: Cardiac silhouette is unchanged. No gross evidence of pneumomediastinum. Bones/joints: No gross fracture. XR/XR chest 1V portable [id number] IMPRESSION: There is mild patchy opacity at the lateral left base that could reflect atelectasis or developing infiltrate. Consider CT to further assess if clinically warranted. Dictated By: Lico Estrella Signed By: Lico Estrella Signed Date/Time: 11/04/20 1441 DD/ 1439 EKG Data^: EKG 1: Attestation: I personally reviewed and interpreted this EKG as follows: Interpretation: 1411 -normal sinus rhythm at 94 beats a minute, normal axis, no blocks, normal intervals, no acute ST or T wave changes. Discharge Plan Discharge Patient Disposition: Transfer to ED Clinical Impression: New onset seizure, Aspiration pneumonia Condition: Stable Prescriptions: No Action hydrocodone-acetaminophen 5-325 mg tablet 1 - 2 tab PO .Q4-6H PRN (Reason: pain) 7 Days Qty: 40 RF: 0 levofloxacin 500 mg tablet 500 mg PO DAILY Qty: 10 RF: 2 Novolin N NPH U-100 Insulin 100 unit/mL Suspension See Rx Instructions .ROUTE .COMPLEX RF: 0 docusate sodium [Stool Softener] 100 mg Capsule 100 mg PO EVERY OTHER DAY RF: 0 acetaminophen-codeine 300-60 mg tablet 1 tab PO Q8H PRN (Reason: Pain) RF: 0 metformin 1,000 mg Tablet 1,000 mg PO BID RF: 0 lisinopril 5 mg Tablet 5 mg PO QAM RF: 0 multivitamin Tablet 1 tab PO QAM RF: 0 aspirin 325 mg Tablet 325 mg PO PRN RF: 0 mupirocin 2 % ointment 1 applic TOPICAL BID RF: 0 Theraflu Flu and Cold Powder In Packet 1 ea PO PRN RF: 0 Bc Powder Headaches &Body Ach 1 packet PO PRN RF: 0 Unkers Therapeutic Rub 1 applic topical PRN RF: 0 nystatin 100,000 unit/gram powder 1 applic topical BID PRN (Reason: UNKNOWN) RF: 0 Referrals: Jas Willett MD [Primary Care Provider] - Coding Level of Care Code ED Apprentice Plumber for Chg Fwd Exam Comprehensive
--- NOTE | 2020-11-04 14:00 | PC.NURSE ---
Pt to CT
[2020-11-04 14:24] LABS: ABG PCO2 37.7 mmHg (35-45); ABG PH Result 7.32 (7.35-7.45); Alveolar-Arterial Oxygen Gradi 4.7 mmHg (5-10); Arterial Blood Gas Hematocrit 38.8 % (37-47); Base Excess ABG -6.3 mmol/L (-2.0-2.0); Blood Gas Allen Test Pos; Blood Gas Operator Identificat glc; Blood Gas Sample Site Radial, left; Blood Gas Sample Type Arterial; HCO3 ABG 19.2 mmol/L (22-26); HGB O2 Sat 90.9 % (95-100); Ionized Calcium Level - ABG 1.1 mmol/L (1.1-1.4); Oxygen Device ROOM AIR; Oxygen Saturation ABG 92.7; PO2 ABG 66.2 mmHg (80.0-100.0); Total Hemoglobin 12.6 g/dL (12-16)
[2020-11-04 14:27] VITALS: BP 181/109; PULSE 90; PULSE 94; RESP 16; O2SAT 94
[2020-11-04 14:30] VITALS: BP 173/89; PULSE 89; RESP 14; O2SAT 93
[2020-11-04 14:34] LABS: Glucose Point of Care 277 mg/dL (70-110)
[2020-11-04 14:40] LABS: Basophils # 0.1 10^3/uL (0.0-0.1); Basophils % 0.4 %; Eosinophils # 0.2 10^3/uL (0.0-0.8); Eosinophils % 1.3 %; Hematocrit 40.3 % (37.0-47.0); Hemoglobin 12.6 g/dL (11.5-15.3); Lymphocytes # 1.9 10^3/uL (0.8-4.8); Lymphocytes % 13.3 %; Mean Corpuscular HGB Conc 31.3 g/dL (30.0-36.0); Mean Corpuscular Hemoglobin 27.5 pg (28.0-34.0); Mean Platelet Volume 9.8 fL (7.4-10.4); Monocytes # 0.8 10^3/uL (0.2-0.9); Monocytes % 5.8 %; Neutrophils # 10.73 10^3/uL (1.8-7.7); Neutrophils % 77.1 %; Nucleated Red Blood Cells % 0 %; Platelet Count 433 10^3/cmm (130-400); Red Blood Count 4.58 10^6/uL (4.1-5.3); Red Cell Distribution Width 12.9 % (12.1-15.1); White Blood Count 13.9 10^3/uL (4.0-10.0)
[2020-11-04] MEDS: ondansetron 2 mg/ML SDV 2 mL 4 MG IVP ×2 (14:50→18:21)
[2020-11-04 14:59] LABS: Ketone (Acetest) Serum Negative (Negative); Partial Thromboplastin Time 31.2 SECONDS (23.9-36.7)
[2020-11-04 15:01] LABS: Alanine Aminotransferase 17 U/L (0-33); Alkaline Phosphatase 103 IU/L (35-105); Anion Gap 24.2 (5-19); Aspartate Amino Transferase 15 U/L (0-32); Blood Urea Nitrogen 13 mg/dL (8-23); Calcium 8.5 mg/dL (8.5-10.5); Carbon Dioxide 18 mmol/L (22-29); Chloride 97 mmol/L (98-107); Creatine Phosphokinase 32 U/L (26-192); Globulin 2.9 g/dL (1.3-4.6); Glomerular Filtration Rate 100.6 mL/min (90-130); Glucose 281 mg/dL (65-115); Magnesium 1.7 mg/dL (1.7-2.3); Osmolality Calculated 290 mOsm/kg (285-295); Potassium 4.2 mmol/L (3.5-5.1); Sodium 135 mmol/L (136-145); Total Bilirubin 0.2 mg/dL (0.15-1.2); Total Protein 6.9 g/dL (6.6-8.7)
[2020-11-04 15:02] LABS: Troponin(5th) Baseline 9 ng/L (0-10)
[2020-11-04 15:05] LABS: Ammonia 21 umol/L (11-51)
[2020-11-04 15:06] LABS: Alcohol Level < 10 mg/dL (0-10); Lactic Sepsis W/Reflex 8.2 mmol/L (0.5-2.2)
--- NOTE | 2020-11-04 15:10 | PC.PHAR ---
PTS DAUGHTER STATES THE GRANDDAUGHTER GELACIO TAKES CARE OF THE PTS MEDICATIONS-GELACIO STATES THE PTS PLAVIX WAS DCED BOTTLE BROUGHT IN DATED 09/14/20 30D/S STATES THE PT HASNT TAKEN FOR 3 WEEKS-GELACIO STATES THE PT IS TAKING METFORMIN 1000MG BID BOTTLE BROUGHT IN DATED 07/03/20 EXT MED HISTORY SHOWS LAST FILLED ON 07/31/20 30D/S-GELACIO STATES THE PT ONLY TAKES ONE KIND OF INSULIN SHE GETS FROM OTC FROM [facility] AND TAKES SLIDING SCALE BID TO TID-GELACIO STATES THE PT HASNT BEEN TAKING PANTOPRAZOLE 20MG EXT MED HISTORY SHOWS LAST FILLED ON 09/14/20 30D/S-STATES THE PT ONLY TAKES 325MG ASPIRIN PRN
[2020-11-04 15:13] LABS: Amphetamines Screen Urine Negative (Negative); Barbiturates Screen Urine Negative (Negative); Benzodiazepines Screen Urine Negative (Negative); Cocaine Screen Urine Negative (Negative); Opiate Screen Urine Positive (Negative); PCP Screen Urine Negative (Negative); THC Screen Urine Negative (Negative)
[2020-11-04] MEDS: LORazepam 2 mg/mL INJ 1 mL 1 MG IVP (15:17)
[2020-11-04 15:21] LABS: Add Urine Culture? No; Bacteria Urine TRACE /hpf; Bilirubin Urine Neg (Negative); Blood Urine Neg (Negative); Glucose Urine UA 2+ (Normal); Hyaline Casts Urine 0-4 /lpf; Ketones Urine 1+ (Negative); Leukocyte Esterase Urine Negative (Negative); Mucus Urine 1+ /hpf; Nitrate Urine Negative (Negative); Protein Urine 1+ (Negative); Squamous Epithelial Cell Urine 0-4 /hpf (0-5); Urine Appearance Clear (CLEAR); Urine Color Straw (Yellow); Urobilinogen Urine Norm (Negative); WBC Urine 0-4 /hpf (0-5); pH Urine 5 (5-7)
--- NOTE | 2020-11-04 15:47 | ECG_ITS ---
[facility] Test Date: 2020-11-04 Pat Name: Naida Arevalo Department: Room: Gender: Female Concrete Pointer: : 1955 Requested By: Bushra River Order Number: [id number] Nathalie MD: Ольга Gaitan M.D. Measurements Intervals Dilliner Rate: 76 P: 74 AK: 164 QRS: 16 QRSD: 97 T: 44 QT: 387 QTc: 436 Interpretive Statements SINUS RHYTHM Compared to ECG 11/04/2020 14:11:45 No significant changes Electronically Signed On 11-05-2020 12:19:22 CDT by Ольга Gaitan M.D. [email or web address]
[2020-11-04] MEDS: sodium chloride 0.9% 1,000 ML 999 ML IV ×2 (16:02→17:10)
[2020-11-04] MEDS: piperacillin-tazobactam 3.375 GM in sodium chloride 0.9% (plus) 50 ML IV (16:04)
[2020-11-04 16:27] LABS: Reflex Lactate Order REFLEX LACTIC ORDERD
[2020-11-04 16:41] LABS: Troponin 5 2HR 18.77 ng/L (0-10); Troponin 5 2HR Delta 9.77 ABS# (0-10)
[2020-11-04 17:03] VITALS: BP 171/121; PULSE 77; RESP 20; O2SAT 98
[2020-11-04 17:06] VITALS: RESP 18
[2020-11-04] MEDS: morphine 4 mg/mL SDV 1 mL IVP (17:06)
[2020-11-04 17:47] LABS: Lactic Acid level (Lactate) 2.9 mmol/L (0.5-2.2)
[2020-11-04 18:24] VITALS: BP 159/110; PULSE 88; RESP 20; O2SAT 99
== END 2020-11-04 18:25 ==
PROVIDERS: Emergency Provider Emergency Medicine; PCP Family Medicine
DX: G40.89 Other seizures (principal); J69.0 Pneumonitis due to inhalation of food and vomit; Z79.4 Long term (current) use of insulin; Z79.82 Long term (current) use of aspirin; E11.9 Type 2 diabetes mellitus without complications; E78.5 Hyperlipidemia, unspecified; I10 Essential (primary) hypertension
CPT/HCPCS: 36415; 36416; 36600; 51702; 70450; 71045; 80051; 80053; 80306; 80307; 81001; 82009; 82140; 82330; 82550; 82805; 82962; 83605; 83735; 84484; 85025; 85610; 85730; 87040; 93005; 96361; 96365; 96367; 96375; 96376; 99285; J1953; J2060; J2270; J2405; J2543; J7030

== ENCOUNTER 2021-05-04 19:16 | Emergency (ER) | payer OTHER, SELFPAY ==
[2021-05-04 19:09] VITALS: RESP 18; BMI 46.7
[2021-05-04 19:14] VITALS: BP 148/73; PULSE 85; RESP 18; O2SAT 96
--- NOTE | 2021-05-04 19:18 | CTR_ITS ---
PROCEDURE INFORMATION: Exam: CT Head Without Contrast Exam date and time: 05/04/2021 7:18 PM Age: 65 years old Clinical indication: Other: Weaknees; Patient HX: C/O weakness and 2x falls today TECHNIQUE: Imaging protocol: Computed tomography of the head without contrast. Radiation optimization: All CT scans at this facility use at least one of these dose optimization techniques: automated exposure control; mA and/or kV adjustment per patient size (includes targeted exams where dose is matched to clinical indication); or iterative reconstruction. 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 No hemorrhage or evidence of acute infarction is seen. Cerebral ventricles: No ventriculomegaly. Paranasal sinuses: Mild left posterior ethmoid sinusitis is noted Mastoid air cells: Visualized mastoid air cells are well aerated. Bones/joints: Unremarkable. No acute fracture. Soft tissues: Unremarkable. CT/CT head wo con* [id number] IMPRESSION: No acute intracranial abnormality. Mild sinusitis. Radiation Dose CTDIVOL = (mGy): DLP = 991.44 (mGy-cm)
--- NOTE | 2021-05-04 19:18 | XRR_ITS ---
PROCEDURE INFORMATION: Exam: XR Chest Exam date and time: 05/04/2021 7:18 PM Age: 65 years old Clinical indication: Other: Weakness TECHNIQUE: Imaging protocol: XR of the chest. Views: 1 view. COMPARISON: CR XR chest 1V portable [id number] 11/04/2020 1:55 PM FINDINGS: Lungs: The lungs are clear. Pleural spaces: Unremarkable. No pleural effusion. No pneumothorax. Heart/Mediastinum: Unremarkable. No cardiomegaly. Bones/joints: Mild degenerative changes are present in the thoracic spine. Multiple pins seen in the visualized right humeral head and neck. No acute fracture. XR/XR chest 1V portable [id number] IMPRESSION: No acute cardiopulmonary abnormality. Radiation Dose CTDIVOL = (mGy): DLP = (mGy-cm)
--- NOTE | 2021-05-04 19:18 | W.ED.WEAKNES ---
Documented by User: TAISHA Ramos 05/04/21 21:30 HPI - Weakness General: Chief complaint: Weakness Stated complaint: generalized weakness Time Seen by Provider: 05/04/21 19:18 History of Present Illness: HPI Narrative: 65-year-old female comes in today with complaints of 2 falls today. Patient reports that her mother who is 90 years old is concerned that she may be having another stroke. Patient has diabetes and has a lot of chronic medical problems. Patient has a partial amputation of the left foot, history of CVA, recent urinary tract infection, and peripheral vascular disease. Patient is alert oriented and appears well. Patient denies any severe pain or discomfort. Patient reports that she has some vertigo and when she stands up she gets dizzy. Patient states that she has been staying with her mother while she gets better from recent illness and her mother does not have a lift chair so she has difficulty getting up out of the chair at times. Patient states she misjudged her portable toilet today and ended up sitting down flat on the floor for the first fall and then when she went to sit back in her recliner she missed the recliner and slid down the side of the recliner. No obvious injuries are noted. Patient appears well. Patient appears no pain. Review of Systems General: Reports: 10 or more systems reviewed and unremarkable except in HPI and below PFSH ED PFSH: Medical History Diabetes mellitus Gangrene Hyperlipidemia Hypertension PVD (peripheral vascular disease) Family History Other CAD (coronary artery disease) Cancer Diabetes Stroke Social History Smoking and tobacco status: never smoked Physical Exam Const: COMMON NORMALS: no acute distress and patient oriented x3 GENERAL APPEARANCE: cooperative HENMT: COMMON NORMALS: normocephalic and Normal external nose present HEAD & SCALP: normal to inspection and normocephalic NOSE: Normal external nose present MOUTH: Normal oral and palatal mucosa present Eye: GENERAL EYE: appearance normal, both eyes and all related structures Neck/C-Spine: COMMON NORMALS: full ROM Chest: COMMONS NORMALS: normal inspection of the chest Resp: COMMON NORMALS: normal respiratory effort EFFORT & INSPECTION: Yes able to speak in complete sentences Cardio: COMMON NORMALS: regular rate and regular rhythm RATE: regular rate RHYTHM: regular rhythm GI: COMMON NORMALS: non-tender Back/Pelvis: COMMON NORMALS: thoracic and lumbar spine normal to inspection Extremity: NARRATIVE EXTREMITY EXAM: Partial amputation of left foot. Neuro: COMMON NORMALS: patient oriented x3 and moves all extremities Psych: COMMON NORMALS: mental status grossly normal and cooperative Skin: COMMON NORMALS: no rashes or lesions noted GENERAL SKIN EXAM: no rashes or lesions noted Course ED course: 2114, reviewed patient with Dr. Pearson regarding abnormal labs and urinary tract infection. Patient did have a little bump in her lactic and some noticeable dehydration. Patient was going to be infused with 1 L of IV fluid, and a gram of Rocephin to be continued on antibiotic at home. Patient was offered a admission but patient did not want to be admitted at this time as she felt well enough to go home. Dr. Pearson agreed with the plan and treatment. Vital Signs: Vital signs: Vital Signs Pulse Rate 85 05/04/21 19:14 Respiratory Rate 18 05/04/21 19:14 Blood Pressure 128/65 05/04/21 21:54 Pulse Oximetry 96 05/04/21 19:14 MDM - Weakness MDM Narrative: Medical decision making narrative: Patient came in today for concerns of some increased weakness today. Patient reported 2 episodes of becoming dizzy and having to set on the ground. Patient does have a history of vertigo, diabetes mellitus, and recurrent urinary tract infections. On exam abdomen soft nontender. Skin is warm and dry. Vital signs are normal. Differential diagnosis includes but not limited to positional hypotension, vertigo, CVA, sepsis. Urinalysis was positive for strong amount of white blood cells, CBC was unremarkable, CMP had a 134 sodium, 272 glucose, and a small bump in the anion gap. Lactate was 3.5. Patient was given 1 L of IV fluid and a gram of Rocephin and will be continued on cefdinir 300 twice a day for the next 5 days. Encourage plenty of fluids. Reviewed this with Dr. Pearson who agreed to my plan. Patient did want to go home and not be admitted. Recommend patient return to the ER for worsening symptoms follow-up with primary care in 1 week. Lab Data: Labs: Lab Results 05/04/21 05/04/21 05/04/21 19:25 19:25 19:25 WBC 9.4 10^3/uL 10^3/ uL (4.0-10.0) RBC 4.08 10^6/uL L 10 ^6/uL (4.1-5.3) Hgb 11.2 g/dL L g/dL (11.5-15.3) Hct 32.3 % L % (37.0-47.0) MCV 79.2 fl L fl (81-99) MCH 27.5 pg L pg (28.0-34.0) MCHC 34.7 g/dL g/dL (30.0-36.0) RDW 16.2 % H % (12.1-15.1) Plt Count 348 10^3/cmm 10^3 /cmm (130-400) MPV 9.9 fL fL (7.4-10.4) Neut % (Auto) 75.3 % % Lymph % (Auto) 17.1 % % [place] % (Auto) 5.7 % % Eos % (Auto) 1.3 % % Baso % (Auto) 0.2 % % Neut # (Auto) 7.07 10^3/uL 10^3 /uL (1.8-7.7) Lymph # (Auto) 1.6 10^3/uL 10^3/ uL (0.8-4.8) [place] # (Auto) 0.5 10^3/uL 10^3/ uL (0.2-0.9) Eos # (Auto) 0.1 10^3/uL 10^3/ uL (0.0-0.8) Baso # (Auto) 0.0 10^3/uL 10^3/ uL (0.0-0.1) Nucleated RBC % (a uto) 0 % % Nucleated RBCs # 0.0 /100WBC /100W BC Sodium 134 mmol/L L mmol /L (136-145) Potassium 4.4 mmol/L mmol/L (3.5-5.1) Chloride 99 mmol/L mmol/L (98-107) Carbon Dioxide 18 mmol/L L mmol/ L (22-29) Anion Gap 21.4 H (5-19) BUN 20 mg/dL mg/dL (8-23) Creatinine 0.7 mg/dL mg/dL (0.5-0.9) GFR Calculation 84.2 mL/min L mL/ min (90-130) Glucose 272 mg/dL H mg/dL (65-115) Calculated Osmolal ity 290 mOsm/kg mOsm/ kg (285-295) Lactate 3.5 mmol/L H mmol /L (0.5-2.2) Calcium 8.9 mg/dL mg/dL (8.5-10.5) Total Bilirubin 0.2 mg/dL mg/dL (0.15-1.2) AST 8 U/L U/L (0-32) ALT 12 U/L U/L (0-33) Alkaline Phosphata se 75 IU/L IU/L (35-105) NT-Pro-B Natriuret Pep 64 pg/mL pg/mL (0-125) Total Protein 6.8 g/dL g/dL (6.6-8.7) Albumin 3.5 g/dL g/dL (3.5-5.2) Globulin 3.3 g/dL g/dL (1.3-4.6) Urine Color Urine Appearance Urine pH Ur Specific Gravit y Urine Protein Urine Glucose (UA) Urine Ketones Urine Blood Urine Nitrate Urine Bilirubin Urine Urobilinogen Ur Leukocyte Jossy ase Urine RBC Urine WBC Ur Squamous Epith Cells Amorphous Sediment Urine Bacteria Urine Yeast 05/04/21 19:25 WBC RBC Hgb Hct MCV MCH MCHC RDW Plt Count MPV Neut % (Auto) Lymph % (Auto) [place] % (Auto) Eos % (Auto) Baso % (Auto) Neut # (Auto) Lymph # (Auto) [place] # (Auto) Eos # (Auto) Baso # (Auto) Nucleated RBC % (a uto) Nucleated RBCs # Sodium Potassium Chloride Carbon Dioxide Anion Gap BUN Creatinine GFR Calculation Glucose Calculated Osmolal ity Lactate Calcium Total Bilirubin AST ALT Alkaline Phosphata se NT-Pro-B Natriuret Pep Total Protein Albumin Globulin Urine Color Yellow (Yellow) Urine Appearance Sl hazy (CLEAR) Urine pH 5 (5-7) Ur Specific Gravit y 1.015 (1.005-1.030) Urine Protein Neg (Negative) Urine Glucose (UA) 2+ H (Normal) Urine Ketones Negative (Negative) Urine Blood Neg (Negative) Urine Nitrate Negative (Negative) Urine Bilirubin Neg (Negative) Urine Urobilinogen Norm mg/dL mg/dL (Negative) Ur Leukocyte Jossy ase 2+ H (Negative) Urine RBC 0-4 /hpf H /hpf (0-2) Urine WBC >100 /hpf H /hpf (0-5) Ur Squamous Epith Cells 25-40 /hpf H /hpf (0-5) Amorphous Sediment Not Reportable Urine Bacteria 2+ /hpf H /hpf (NONE) Urine Yeast 2+ /hpf H /hpf EKG Data^: EKG 1: Attestation: I personally reviewed and interpreted this EKG as follows: (193, EKG shows a sinus rhythm with a regular rate at 79 bpm. No ectopy or ST elevation is noted. No recent exam is available for me for comparison.) Discharge Plan Discharge Patient Disposition: Home Clinical Impression: UTI (urinary tract infection) Qualifiers: Urinary tract infection type: acute cystitis Hematuria presence: without hematuria Qualified Code(s): N30.00 - Acute cystitis without hematuria Condition: Stable Prescriptions: New cefdinir 300 mg capsule 300 mg PO BID 5 Days Qty: 10 RF: 0 Diflucan 150 mg tablet 150 mg PO Q3D Qty: 3 RF: 0 Discontinued levofloxacin 500 mg tablet 500 mg PO DAILY Qty: 10 RF: 2 No Action hydrocodone-acetaminophen 5-325 mg tablet 1 - 2 tab PO .Q4-6H PRN (Reason: pain) 7 Days Qty: 40 RF: 0 Novolin N NPH U-100 Insulin 100 unit/mL Suspension See Rx Instructions .ROUTE .COMPLEX RF: 0 docusate sodium [Stool Softener] 100 mg Capsule 100 mg PO EVERY OTHER DAY RF: 0 acetaminophen-codeine 300-60 mg tablet 1 tab PO Q8H PRN (Reason: Pain) RF: 0 metformin 1,000 mg Tablet 1,000 mg PO BID RF: 0 lisinopril 5 mg Tablet 5 mg PO QAM RF: 0 multivitamin Tablet 1 tab PO QAM RF: 0 aspirin 325 mg Tablet 325 mg PO PRN RF: 0 mupirocin 2 % ointment 1 applic TOPICAL BID RF: 0 Theraflu Flu and Cold Powder In Packet 1 ea PO PRN RF: 0 Bc Powder Headaches &Body Ach 1 packet PO PRN RF: 0 Unkers Therapeutic Rub 1 applic topical PRN RF: 0 nystatin 100,000 unit/gram powder 1 applic topical BID PRN (Reason: UNKNOWN) RF: 0 Discharge Orders: Discharge ED (Routine); Ordered 05/04/21 Ordered By: Lico Vargas Discharge Diet: Usual diet Discharge Activity: Increase activity as tolerated Patient Instructions: Urinary Tract Infection in Women (ED), Opioid Safety Activity Restrictions/Additional Instructions: Home and rest. Drink plenty of fluids. Take antibiotic as directed, cefdinir 300 mg, 1 capsule twice a day for 5 days. Use fluconazole 150 mg 1 tablet every 3 days for the next 3 doses which is to treat your yeast infection. Follow-up with primary care in 1 week for recheck of urine. Return to the emergency department for fever greater than 100.4, worsening symptoms, or new concerns. Coding Level of Care Code ED Database Technician for Chg Fwd Exam Comprehensive Documented by User: Tulio Pearson DO 05/04/21 23:14 HPI - Weakness General: Chief complaint: Weakness Stated complaint: generalized weakness Time Seen by Provider: 05/04/21 19:18 [facility] ED PFSH: Medical History Diabetes mellitus Gangrene Hyperlipidemia Hypertension PVD (peripheral vascular disease) Family History Other CAD (coronary artery disease) Cancer Diabetes Stroke Social History Smoking and tobacco status: never smoked Course Vital Signs: Vital signs: Vital Signs Pulse Rate 85 05/04/21 19:14 Respiratory Rate 18 05/04/21 19:14 Blood Pressure 128/65 05/04/21 21:54 Pulse Oximetry 96 05/04/21 19:14 MDM - Weakness MDM Narrative: Medical decision making narrative: This patient was originally seen by TAISHA Pina. I agree with his history, evaluation, and treatment. Lab Data: Labs: Lab Results 05/04/21 05/04/21 05/04/21 19:25 19:25 19:25 WBC 9.4 10^3/uL 10^3/ uL (4.0-10.0) RBC 4.08 10^6/uL L 10 ^6/uL (4.1-5.3) Hgb 11.2 g/dL L g/dL (11.5-15.3) Hct 32.3 % L % (37.0-47.0) MCV 79.2 fl L fl (81-99) MCH 27.5 pg L pg (28.0-34.0) MCHC 34.7 g/dL g/dL (30.0-36.0) RDW 16.2 % H % (12.1-15.1) Plt Count 348 10^3/cmm 10^3 /cmm (130-400) MPV 9.9 fL fL (7.4-10.4) Neut % (Auto) 75.3 % % Lymph % (Auto) 17.1 % % [place] % (Auto) 5.7 % % Eos % (Auto) 1.3 % % Baso % (Auto) 0.2 % % Neut # (Auto) 7.07 10^3/uL 10^3 /uL (1.8-7.7) Lymph # (Auto) 1.6 10^3/uL 10^3/ uL (0.8-4.8) [place] # (Auto) 0.5 10^3/uL 10^3/ uL (0.2-0.9) Eos # (Auto) 0.1 10^3/uL 10^3/ uL (0.0-0.8) Baso # (Auto) 0.0 10^3/uL 10^3/ uL (0.0-0.1) Nucleated RBC % (a uto) 0 % % Nucleated RBCs # 0.0 /100WBC /100W BC Sodium 134 mmol/L L mmol /L (136-145) Potassium 4.4 mmol/L mmol/L (3.5-5.1) Chloride 99 mmol/L mmol/L (98-107) Carbon Dioxide 18 mmol/L L mmol/ L (22-29) Anion Gap 21.4 H (5-19) BUN 20 mg/dL mg/dL (8-23) Creatinine 0.7 mg/dL mg/dL (0.5-0.9) GFR Calculation 84.2 mL/min L mL/ min (90-130) Glucose 272 mg/dL H mg/dL (65-115) Calculated Osmolal ity 290 mOsm/kg mOsm/ kg (285-295) Lactate 3.5 mmol/L H mmol /L (0.5-2.2) Calcium 8.9 mg/dL mg/dL (8.5-10.5) Total Bilirubin 0.2 mg/dL mg/dL (0.15-1.2) AST 8 U/L U/L (0-32) ALT 12 U/L U/L (0-33) Alkaline Phosphata se 75 IU/L IU/L (35-105) NT-Pro-B Natriuret Pep 64 pg/mL pg/mL (0-125) Total Protein 6.8 g/dL g/dL (6.6-8.7) Albumin 3.5 g/dL g/dL (3.5-5.2) Globulin 3.3 g/dL g/dL (1.3-4.6) Urine Color Urine Appearance Urine pH Ur Specific Gravit y Urine Protein Urine Glucose (UA) Urine Ketones Urine Blood Urine Nitrate Urine Bilirubin Urine Urobilinogen Ur Leukocyte Jossy ase Urine RBC Urine WBC Ur Squamous Epith Cells Amorphous Sediment Urine Bacteria Urine Yeast 05/04/21 19:25 WBC RBC Hgb Hct MCV MCH MCHC RDW Plt Count MPV Neut % (Auto) Lymph % (Auto) [place] % (Auto) Eos % (Auto) Baso % (Auto) Neut # (Auto) Lymph # (Auto) [place] # (Auto) Eos # (Auto) Baso # (Auto) Nucleated RBC % (a uto) Nucleated RBCs # Sodium Potassium Chloride Carbon Dioxide Anion Gap BUN Creatinine GFR Calculation Glucose Calculated Osmolal ity Lactate Calcium Total Bilirubin AST ALT Alkaline Phosphata se NT-Pro-B Natriuret Pep Total Protein Albumin Globulin Urine Color Yellow (Yellow) Urine Appearance Sl hazy (CLEAR) Urine pH 5 (5-7) Ur Specific Gravit y 1.015 (1.005-1.030) Urine Protein Neg (Negative) Urine Glucose (UA) 2+ H (Normal) Urine Ketones Negative (Negative) Urine Blood Neg (Negative) Urine Nitrate Negative (Negative) Urine Bilirubin Neg (Negative) Urine Urobilinogen Norm mg/dL mg/dL (Negative) Ur Leukocyte Jossy ase 2+ H (Negative) Urine RBC 0-4 /hpf H /hpf (0-2) Urine WBC >100 /hpf H /hpf (0-5) Ur Squamous Epith Cells 25-40 /hpf H /hpf (0-5) Amorphous Sediment Not Reportable Urine Bacteria 2+ /hpf H /hpf (NONE) Urine Yeast 2+ /hpf H /hpf Discharge Plan Discharge Patient Disposition: Home Clinical Impression: UTI (urinary tract infection) Qualifiers: Urinary tract infection type: acute cystitis Hematuria presence: without hematuria Qualified Code(s): N30.00 - Acute cystitis without hematuria Condition: Stable Prescriptions: New cefdinir 300 mg capsule 300 mg PO BID 5 Days Qty: 10 RF: 0 Diflucan 150 mg tablet 150 mg PO Q3D Qty: 3 RF: 0 Discontinued levofloxacin 500 mg tablet 500 mg PO DAILY Qty: 10 RF: 2 No Action hydrocodone-acetaminophen 5-325 mg tablet 1 - 2 tab PO .Q4-6H PRN (Reason: pain) 7 Days Qty: 40 RF: 0 Novolin N NPH U-100 Insulin 100 unit/mL Suspension See Rx Instructions .ROUTE .COMPLEX RF: 0 docusate sodium [Stool Softener] 100 mg Capsule 100 mg PO EVERY OTHER DAY RF: 0 acetaminophen-codeine 300-60 mg tablet 1 tab PO Q8H PRN (Reason: Pain) RF: 0 metformin 1,000 mg Tablet 1,000 mg PO BID RF: 0 lisinopril 5 mg Tablet 5 mg PO QAM RF: 0 multivitamin Tablet 1 tab PO QAM RF: 0 aspirin 325 mg Tablet 325 mg PO PRN RF: 0 mupirocin 2 % ointment 1 applic TOPICAL BID RF: 0 Theraflu Flu and Cold Powder In Packet 1 ea PO PRN RF: 0 Bc Powder Headaches &Body Ach 1 packet PO PRN RF: 0 Unkers Therapeutic Rub 1 applic topical PRN RF: 0 nystatin 100,000 unit/gram powder 1 applic topical BID PRN (Reason: UNKNOWN) RF: 0 Discharge Orders: Discharge ED (Routine); Ordered 05/04/21 Ordered By: Lico Vargas Discharge Diet: Usual diet Discharge Activity: Increase activity as tolerated Patient Instructions: Urinary Tract Infection in Women (ED), Opioid Safety Activity Restrictions/Additional Instructions: Home and rest. Drink plenty of fluids. Take antibiotic as directed, cefdinir 300 mg, 1 capsule twice a day for 5 days. Use fluconazole 150 mg 1 tablet every 3 days for the next 3 doses which is to treat your yeast infection. Follow-up with primary care in 1 week for recheck of urine. Return to the emergency department for fever greater than 100.4, worsening symptoms, or new concerns. Coding Level of Care Code ED Database Technician for Nazanin Fwmiladis Exam Comprehensive
--- NOTE | 2021-05-04 19:20 | ECG_ITS ---
[facility] Test Date: 2021-05-04 Pat Name: Naida Arevalo Department: Room: Gender: Female Event Host: : [id number] Requested By: Lico Jacques Order Number: [id number] Nathalie MD: JAZZMINE AGUILAR Measurements Intervals [place] Rate: 79 P: 60 NC: 157 QRS: 5 QRSD: 95 T: 58 QT: 358 QTc: 411 Interpretive Statements SINUS RHYTHM Compared to ECG 11/04/2020 16:53:36 No significant changes Electronically Signed On 05-04-2021 23:56:22 CDT by JAZZMINE AGUILAR [email or web address]
[2021-05-04 19:41] LABS: Basophils % 0.2 %; Eosinophils # 0.1 10^3/uL (0.0-0.8); Eosinophils % 1.3 %; Hematocrit 32.3 % (37.0-47.0); Hemoglobin 11.2 g/dL (11.5-15.3); Lymphocytes # 1.6 10^3/uL (0.8-4.8); Lymphocytes % 17.1 %; Mean Corpuscular HGB Conc 34.7 g/dL (30.0-36.0); Mean Corpuscular Hemoglobin 27.5 pg (28.0-34.0); Mean Corpuscular Volume 79.2 fl (81-99); Mean Platelet Volume 9.9 fL (7.4-10.4); Monocytes # 0.5 10^3/uL (0.2-0.9); Monocytes % 5.7 %; Neutrophils # 7.07 10^3/uL (1.8-7.7); Neutrophils % 75.3 %; Nucleated Red Blood Cells % 0 %; Platelet Count 348 10^3/cmm (130-400); Red Blood Count 4.08 10^6/uL (4.1-5.3); Red Cell Distribution Width 16.2 % (12.1-15.1); White Blood Count 9.4 10^3/uL (4.0-10.0)
[2021-05-04 19:48] LABS: Add Urine Microscopic? YES; Bilirubin Urine Neg (Negative); Blood Urine Neg (Negative); Glucose Urine UA 2+ (Normal); Ketones Urine Negative (Negative); Leukocyte Esterase Urine 2+ (Negative); Nitrate Urine Negative (Negative); Protein Urine Neg (Negative); Specific Gravity, Urine 1.015 (1.005-1.030); Urine Appearance SL Hazy (CLEAR); Urine Color Yellow (Yellow); Urobilinogen Urine Norm (Negative); pH Urine 5 (5-7)
[2021-05-04 19:57] LABS: Add Urine Culture? No; Bacteria Urine 2+ /hpf; RBC Urine 0-4 /hpf (0-2); Squamous Epithelial Cell Urine 25-40 /hpf (0-5); WBC Urine >100 /hpf (0-5)
[2021-05-04 20:02] LABS: Lactate (Lactic Acid level) 3.5 mmol/L (0.5-2.2)
[2021-05-04 20:10] LABS: Alanine Aminotransferase 12 U/L (0-33); Albumin Level 3.5 g/dL (3.5-5.2); Alkaline Phosphatase 75 IU/L (35-105); Anion Gap 21.4 (5-19); Aspartate Amino Transferase 8 U/L (0-32); Blood Urea Nitrogen 20 mg/dL (8-23); Calcium 8.9 mg/dL (8.5-10.5); Carbon Dioxide 18 mmol/L (22-29); Chloride 99 mmol/L (98-107); Globulin 3.3 g/dL (1.3-4.6); Glomerular Filtration Rate 84.2 mL/min (90-130); Glucose 272 mg/dL (65-115); NT Pro B Type Natriuretic Pept 64 pg/mL (0-125); Osmolality Calculated 290 mOsm/kg (285-295); Potassium 4.4 mmol/L (3.5-5.1); Sodium 134 mmol/L (136-145); Total Bilirubin 0.2 mg/dL (0.15-1.2); Total Protein 6.8 g/dL (6.6-8.7)
[2021-05-04] MEDS: fluconazole 100 mg Tablet 150 MG PO (20:36)
[2021-05-04] MEDS: sodium chloride 0.9% 1,000 ML 999 ML IV (20:36)
[2021-05-04] MEDS: cefTRIAXone 1,000 MG in sodium chloride 0.9% (plus) 50 ML 100 MG IV (20:36)
[2021-05-04 21:54] VITALS: BP 128/65
--- NOTE | 2021-05-04 22:33 | PC.NURSE ---
daughter, Chantale, states she is 5 hours away and unable to get patient. stated we could call pt parents. father stated he is too tired to drive and come get her, mother does not drive. [facility] and [facility] both denied transport. advised father to call neighbors and/or friends to see if anyone can come get this patient.
--- NOTE | 2021-05-04 22:40 | PC.NURSE ---
nephew from [place] is going to come and case picker father and they are coming to ED to come and get patient.
[2021-05-05 00:30] VITALS: BP 128/65; PULSE 85; RESP 18; O2SAT 96
== END 2021-05-05 00:32 | disposition home or self-care (01) ==
PROVIDERS: Emergency Provider Nurse Practitioner Family
DX: N30.00 Acute cystitis without hematuria (principal); Z79.84 Long term (current) use of oral hypoglycemic drugs; Z79.82 Long term (current) use of aspirin; Z79.4 Long term (current) use of insulin; E11.9 Type 2 diabetes mellitus without complications; E78.5 Hyperlipidemia, unspecified; I10 Essential (primary) hypertension
CPT/HCPCS: 70450; 71045; 80053; 81001; 83605; 83880; 85025; 93005; 96365; 99284; J0696; J7030

== ENCOUNTER 2022-03-08 16:53 | Inpatient (IN) | payer MEDICARE, SELFPAY ==
[2022-03-08 17:00] VITALS: BMI 38.7
[2022-03-08 17:23] LABS: Glucose Point of Care 165 mg/dL (70-110)
[2022-03-08 17:27] VITALS: BP 161/83; PULSE 106; RESP 18; TEMP 36.7; O2SAT 97
--- NOTE | 2022-03-08 17:30 | P.HP_ITS ---
Providers/Chief Complaint Admitting Physician: Shelly Rubalcava MD Chief Complaint: stroke History of Present Illness Naida Arevalo is a 66 year old female who presents as a transfer from [place], with diagnosis of stroke. According to the emergency department physician there, patient has had symptoms 2 to 3 days, with dense left hemiparesis. She had a prior stroke on the left side which impairs her to where she can help with transfers but cannot stand or walk on her own. She has been less responsive. There has been no record of fever or chills. Speech has been more slurred, and facial droop has been noted. Review of Systems General: Reports: ROS unobtainable due to mental status Medications/Allergies Home Medications Medication Instructions Recorded Confirmed Last Taken Type lisinopril 5 mg tablet 5 mg PO QAM 09/12/20 11/04/20 11/04/20 History metformin 1,000 mg tablet 1,000 mg PO BID SEE PHARMACY 09/12/20 11/04/20 10/15/20 History COMMENTS docusate sodium 100 mg capsule 100 mg PO EVERY OTHER DAY 10/05/20 11/04/20 10/14/20 History (Stool Softener) insulin NPH isoph U-100 human 100 See Rx Instructions .Route .COMPLEX 10/05/20 11/04/20 10/15/20 History unit/mL subcutaneous suspension (Novolin N NPH U-100 Insulin isophane) acetaminophen 300 mg-codeine 60 mg 1 tab PO Q8H PRN Pain 10/13/20 11/04/20 10/14/20 History tablet hydrocodone 5 mg-acetaminophen 325 1 - 2 tab PO .Q4-6H PRN pain 7 10/31/20 11/04/20 11/04/20 11:00 Rx mg tablet days #40 tabs 2 tabs Bc Powder Headaches &Body Ach 1 packet PO PRN 11/04/20 11/04/20 Unknown History Unkers Therapeutic Rub 1 applic topical PRN 11/04/20 11/04/20 Unknown History aspirin 325 mg tablet 325 mg PO PRN 11/04/20 11/04/20 Unknown History mwf-yddxohvfckk-memqyvrdremab oral 1 ea PO PRN 11/04/20 11/04/20 Unknown History powder packet multivitamin 1 tab PO QAM 11/04/20 11/04/20 Unknown History mupirocin 2 % topical ointment 1 applic topical BID 11/04/20 11/04/20 Unknown History nystatin 100,000 unit/gram topical 1 applic topical BID PRN UNKNOWN 11/04/20 11/04/20 Unknown History powder fluconazole 150 mg tablet 150 mg PO Q3D #3 tabs 05/04/21 Unknown Rx (Diflucan) Allergies Allergy/AdvReac Type Severity Reaction Status Date / Time empagliflozin Allergy Unknown Verified 11/04/20 15:10 [From Jardiance] PFSH Acute PFSH: Medical History (Updated 03/08/22 @ 17:42 by Reynaldo Rubalcava MD) CVA (cerebral vascular accident) Diabetes mellitus Gangrene Hyperlipidemia Hypertension Obesity PVD (peripheral vascular disease) Surgical History (Updated 03/08/22 @ 17:31 by Reynaldo Rubalcava MD) History of cholecystectomy Family History Other CAD (coronary artery disease) Cancer Diabetes Stroke Social History (Updated 03/08/22 @ 17:32 by Reynaldo Rubalcava MD) Smoking and tobacco status: never smoked Alcohol intake: never Vitals/I&O/Wt Last Vital Signs O2 Del Method 03/08/22 17:00 Weight last 48 hrs Weight 108.862 kg Physical Exam Narrative: General exam is white female, who can say hi after prompted. She can follow some directions on her right side. HEENT: Atraumatic and normocephalic. Poor dentition is noted. Oropharynx clear. Neck is supple no lymphadenopathy or thyromegaly Cardiovascular regular rate and rhythm, no murmur Lungs clear no wheezing or crackles Abdomen soft obese nontender with positive bowel sounds Extremities no cyanosis clubbing or edema. Metatarsal resection noted on the left. Cap refill brisk. Skin no rash Neuro: Dense left hemiparesis, left facial droop is noted. I believe she has a significant visual deficit in her left eye, perhaps blind. She is not able to follow me past midline. NIH scale as per nursing. Data Other Labs: Outside laboratory demonstrates a sodium of 135 potassium 4.1 chloride 103 bicarb 22 BUN 35 creatinine 0.8 glucose 160. LFTs are normal. Troponin is normal. Albumin 4.2. Calcium 9.2. INR is 1.1. Platelet count 406. White blood cell count 15.9. Hemoglobin 12.7 EKG demonstrates sinus rhythm, flipped T waves laterally. I suspect no acute changes. CT head per verbal report from physician at outside hospital demonstrated subacute right frontal lobe infarct and old right temporal lobe infarct. Chest x-ray reported to be normal by the outlying physician but there is no copy of this report either. A&P Assessment and plan (1) CVA (cerebral vascular accident): Patient presents with subacute CVA, right frontal region. Symptomatology from outside physician reports this is been going on at least 2 days. She is not a candidate for tPA Symptoms currently include dense left hemiparesis, likely visual field loss, slurred speech, decreased responsiveness. Provide supportive care IV fluids Echocardiogram, carotid duplex Lovenox Therapy consultations Will need placement Obtain copies of CT, chest x-ray Telemetry Status: Acute (2) Elevated white blood cell count: Check urinalysis Await chest x-ray report Status: Acute (3) Diabetes mellitus: Sliding scale insulin Status: Acute (4) Hypertension: Permissive hypertension currently Status: Acute Plan Multiple other medical problems as outlined in past medical history Full code currently. Will need clarified Lovenox will suffice for DVT prophylaxis. Attestations Medical Necessity Statement*: Will need greater than 2 midnight stay secondary to severe subacute CVA Coding Level of Care Code Acute Ecommerce Marketing Specialist for Nazanin Hay Diagnoses CVA (cerebral vascular accident) I63.9 Elevated white blood cell count D72.829 Diabetes mellitus E11.9 Hypertension I10
[2022-03-08] MEDS: enoxaparin 40 mg/0.4 mL Syringe SUBCUT (18:32)
[2022-03-08] MEDS: sodium chloride 0.9% 1,000 ML 75 ML IV (18:33)
[2022-03-08 18:36] LABS: Add Urine Culture? Yes; Bacteria Urine TRACE /hpf; Bilirubin Urine Neg (Negative); Blood Urine 3+ (Negative); Glucose Urine UA Norm (Normal); Ketones Urine 1+ (Negative); Leukocyte Esterase Urine 2+ (Negative); Nitrate Urine Negative (Negative); Protein Urine 2+ (Negative); RBC Urine 0-4 /hpf (0-2); Squamous Epithelial Cell Urine 0-4 /hpf (0-5); Urine Appearance Cloudy (CLEAR); Urine Color Yellow (Yellow); Urobilinogen Urine Norm (Negative); WBC Urine TOO NUMEROUS TO CNT /hpf (0-5); pH Urine 5 (5-7)
--- NOTE | 2022-03-08 18:42 | XRR_ITS ---
PROCEDURE INFORMATION: Exam: XR Chest Exam date and time: 03/08/2022 6:55 PM Age: 66 years old Clinical indication: Other: CVA TECHNIQUE: Imaging protocol: Radiologic exam of the chest. Views: 1 view. COMPARISON: CR XR chest 1V portable [id number] 05/04/2021 7:31 PM FINDINGS: Lungs: Shallower lung volumes. Still no apparent airspace disease. Pleural spaces: Still no pneumothorax or apparent pleural fluid. Heart/Mediastinum: Still no apparent cardiomegaly. Vasculature: Continued aortic elongation. Bones/joints: No suggestion of acute bony disease. Continued metallic fixation devices in the right humeral head. XR/XR chest 1V portable [id number] IMPRESSION: No acute findings.
[2022-03-08 19:30] VITALS: BP 147/83; PULSE 107; RESP 18; TEMP 37.1; O2SAT 98
--- NOTE | 2022-03-08 19:34 | PC.NURSE ---
on admission patient eyes are deviated to the right, is able to move right arm and leg, answers only yes or no. Unable to complete all admission questions as no family is available.
[2022-03-08] MEDS: insulin lispro 100 unit/1 mL SUBCUT (22:49)
[2022-03-08 23:30] VITALS: BP 113/77; PULSE 118; RESP 19; TEMP 37.1; O2SAT 90
[2022-03-09] VITALS (50 sets, daily range): BP systolic 100–182; BP diastolic 58–117; PULSE 92–123; RESP 7–26; TEMP 36.8–37.6; O2SAT 93–100
--- NOTE | 2022-03-09 00:12 | XRR_ITS ---
PROCEDURE INFORMATION: Exam: XR Chest Exam date and time: 03/09/2022 2:00 AM Age: 66 years old Clinical indication: Shortness of breath; Additional info: Hypoxia TECHNIQUE: Imaging protocol: Radiologic exam of the chest. Views: 1 view. COMPARISON: CR (CHEST, ) 03/08/2022 6:55 PM FINDINGS: Lungs: Unremarkable. No consolidation. Pleural spaces: Unremarkable. No pleural effusion. No pneumothorax. Heart/Mediastinum: Unremarkable. No cardiomegaly. Bones/joints: Surgical hardware fixates proximal right humerus. Negative for acute thoracic fracture. XR/XR chest 1V portable [id number] IMPRESSION: Negative exam.
--- NOTE | 2022-03-09 00:25 | ECG_ITS ---
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 Measurements Intervals [place] Rate: 112 P: 47 CA: 159 QRS: 27 QRSD: 92 T: 78 QT: 314 QTc: 429 Interpretive Statements SINUS TACHYCARDIA MODERATE ST DEPRESSION [0.05+ mV ST DEPRESSION] Compared to ECG 05/04/2021 19:29:25 ST (T wave) deviation now present Sinus rhythm no longer present Electronically Signed On 03-10-2022 13:22:12 CDT by Duane Gonsalez M.D. [id number]
[2022-03-09 00:30] LABS: ABG PCO2 30.9 mmHg (35-45); Alveolar-Arterial Oxygen Gradi 31.9 mmHg (5-10); Arterial Blood Gas Hematocrit 38.4 % (37-47); Base Excess ABG -4.9 mmol/L (-2.0-2.0); Blood Gas Allen Test Pos; Blood Gas Sample Site Radial, right; Blood Gas Sample Type Arterial; Carboxyhemoglobin 1.2 %THgb (0.4-20.1); HCO3 ABG 18.9 mmol/L (22-26); HGB O2 Sat 92.8 % (95-100); Ionized Calcium Level - ABG 1.2 mmol/L (1.1-1.4); Methemoglobin 0.7 % (0.4-1.5); Oxygen Device OXY MASK; Oxygen Saturation ABG 94.6; PO2 ABG 70.6 mmHg (80.0-100.0); Potassium Level - ABG 4.4 mmol/L (3.5-5.0); Total Hemoglobin 12.5 g/dL (12-16)
[2022-03-09] MEDS: scopolamine 1.5 Patch 1 PATCH TRANSDERMA ×2 (00:38→04:07)
[2022-03-09 01:38] LABS: D Dimer 2.11 ug/mIFEU (0-0.59)
[2022-03-09 01:52] LABS: Troponin(5th) Baseline 11 ng/L (0-10)
--- NOTE | 2022-03-09 01:53 | USR_ITS ---
PROCEDURE INFORMATION: Exam: US Duplex Lower Extremity Veins, Bilateral Exam date and time: 03/09/2022 7:04 AM Age: 66 years old Clinical indication: Other: Hypoxia; Additional info: [place]oia TECHNIQUE: Imaging protocol: Real-time Duplex ultrasound of the bilateral extremities with 2-D degroot scale, color Doppler flow and spectral waveform analysis with image documentation. Complete exam focused on the bilateral lower extremity veins. COMPARISON: No relevant prior studies available. FINDINGS: Evaluated veins include bilateral common femoral, proximal profunda femoral, proximal/mid/distal superficial femoral, popliteal, posterior tibial, peroneal, and proximal greater saphenous veins. Right leg: No visible clot in the included veins. The included veins appear normally compressible. Duplex Doppler evaluation demonstrates flow in the evaluated veins. Left leg: No visible clot in the included veins. The included veins appear normally compressible. Duplex Doppler evaluation demonstrates flow in the evaluated veins. US/[place] [id number] IMPRESSION: 1. No evidence of acute right lower extremity DVT. 2. No evidence of acute left lower extremity DVT.
--- NOTE | 2022-03-09 01:53 | CTR_ITS ---
PROCEDURE INFORMATION: Exam: CTA Chest With Contrast Exam date and time: 03/09/2022 3:00 AM Age: 66 years old Clinical indication: Other: Hypoxia TECHNIQUE: Imaging protocol: Computed tomographic angiography of the chest with contrast. 3D rendering (Not supervised by radiologist): MIP and/or 3D reconstructed images were created by the technologist. Radiation optimization: All CT scans at this facility use at least one of these dose optimization techniques: automated exposure control; mA and/or kV adjustment per patient size (includes targeted exams where dose is matched to clinical indication); or iterative reconstruction. Contrast material: OMNI 350; Contrast volume: 80 ml; Contrast route: INTRAVENOUS (IV); COMPARISON: CR (CHEST, ) 03/09/2022 2:00 AM RADIATION DOSE METRICS: Total DLP (mGy-cm): [id number] FINDINGS: Pulmonary arteries: Normal. No pulmonary emboli. Aorta: Calcified plaques of thoracic aorta. Negative for aneurysm. Negative for dissection. Lungs: Secretions within lower lobe bronchi. Minor peripheral ground-glass opacities mostly left lower lobe. No consolidation. No bronchiectasis. Pleural spaces: Unremarkable. No pneumothorax. No pleural effusion. Heart: Unremarkable. No cardiomegaly. No pericardial effusion. Mediastinal space: Unremarkable thoracic esophagus. Lymph nodes: Unremarkable. No enlarged lymph nodes. Gallbladder and bile ducts: Cholecystectomy. Bones/joints: Unremarkable. No acute fracture. Soft tissues: Unremarkable. CT/CT angio chest PE protcl [id number] IMPRESSION: 1. Negative for pulmonary embolism. 2. Endobronchial secretions. Bronchitis or aspiration not excluded.
--- NOTE | 2022-03-09 02:14 | ECG_ITS ---
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 Measurements Intervals [place] Rate: 111 P: 39 [place]: 151 QRS: 12 QRSD: 90 T: 77 QT: 317 QTc: 431 Interpretive Statements SINUS TACHYCARDIA NONSPECIFIC ST & T-WAVE ABNORMALITY Compared to ECG 03/09/2022 00:25:08 T-wave abnormality now present ST (T wave) deviation no longer present Electronically Signed On 03-10-2022 13:30:40 CDT by Duane Gonsalez M.D. [id number]
[2022-03-09] MEDS: iohexol 350 mg/mL 100 mL Btl 95 ML IV (03:08)
--- NOTE | 2022-03-09 03:29 | PC.NURSE ---
late entry - notified Dr Hastings of patient's increased O2 requirements from room air to 6L oximask and crackles, and that patient was diaphoretic, orders given for CXR, ABG, EKG, troponin, O2 requirements increased again to 15L, called Dr Hastings again for order to transfer to ICU, patient transported to CT and then to ICU 11, report given to [place] BOURGEOIS
--- NOTE | 2022-03-09 03:30 | P.EN_ITS ---
Event Note Event Note: Patient was becoming hypoxic There was concern for aspiration Proximal requirement worsened from 6 L to 15 L nonrebreather mask I requested D-dimer which came back high Requested stat CTA When I saw her in the CAT scan suite noticed twitching of her eyes in horizontal axis from right to left Patient was transferred to ICU I called her daughter to get consent for intubation Her daughter told me that she spent 20 days at [facility] and at that time she was diagnosed with seizure and stroke and at home she is supposed to take antiepileptic She was sick and despite being sick she decided to take care of her mother Currently Maira is living with her parents to take care of them We were ready to intubate her in the ICU however she started responding better and her oxygen requirement decreased to 5 L oxygen mask, she was pulled to lift her right hand, she was holding her right leg, she was able to look towards me on calling her name however she is nonverbal Patient is not able to comprehend my questions Horizontal movement of eyes have improved She is able to blink her eyes on apprehension Lifting her right hand in the air against gravity Holding her right leg She has left-sided residual weakness from previous stroke Nonverbal S1, S2 sinus tachycardia Bilateral breath sounds with rhonchi with upper airway secretions residence Abdomen soft nontender Em catheter with dilute colored urine Assessment and plan Post ictal confusion I will load her with Keppra 1500 mg IV Then start 1 g of Keppra every 12 hours Watch closely in the ICU My threshold to intubate will stay low to protect her airway Right now her GCS is 10 I am waiting on CTA chest results As per the daughter she was diagnosed with breakthrough seizures with previous stroke as well, will request records from [facility] [place] she was at [place]
[2022-03-09] MEDS: cefTRIAXone 1,000 MG in sodium chloride 0.9% (plus) 50 ML 100 MG IV (04:06)
[2022-03-09] MEDS: acetylcysteine 200 mg/mL SDV 4 mL INHALATION ×2 (04:07→08:19)
[2022-03-09] MEDS: ipratropium-albuterol 3 mL Neb INHALATION ×2 (04:07→08:19)
[2022-03-09 04:29] LABS: Prolactin 30.61 ng/mL (4.8-23.3)
[2022-03-09 05:02] LABS: Basophils % 0.2 %; Hematocrit 36.4 % (37.0-47.0); Hemoglobin 11.4 g/dL (11.5-15.3); Lymphocytes # 1.7 10^3/uL (0.8-4.8); Lymphocytes % 9.7 %; Mean Corpuscular HGB Conc 31.3 g/dL (30.0-36.0); Mean Corpuscular Hemoglobin 28.8 pg (28.0-34.0); Mean Corpuscular Volume 91.9 fl (81-99); Mean Platelet Volume 10.5 fL (7.4-10.4); Monocytes # 0.9 10^3/uL (0.2-0.9); Monocytes % 5.4 %; Neutrophils # 14.38 10^3/uL (1.8-7.7); Neutrophils % 83.9 %; Nucleated Red Blood Cells % 0 %; Platelet Count 414 10^3/cmm (130-400); Red Blood Count 3.96 10^6/uL (4.1-5.3); Red Cell Distribution Width 13.3 % (12.1-15.1); White Blood Count 17.1 10^3/uL (4.0-10.0)
[2022-03-09 05:21] LABS: Troponin 5 2HR 11.47 ng/L (0-10)
[2022-03-09 05:22] LABS: Alanine Aminotransferase 10 U/L (0-33); Albumin Level 3.2 g/dL (3.5-5.2); Alkaline Phosphatase 61 U/L (35-105); Blood Urea Nitrogen 32 mg/dL (8-23); Calcium 8.7 mg/dL (8.5-10.5); Carbon Dioxide 20 mmol/L (22-29); Chloride 100 mmol/L (98-107); Chol HDL Ratio 2.66 mg/dL (0.0-4.40); Cholesterol 109 mg/dL (0-200); Globulin 3.5 g/dL (1.3-4.6); Glucose 184 mg/dL (65-115); HDL Cholesterol 41 mg/dL (60-100); LDL Cholesterol Calculated 23 mg/dL (50-129); LDL HDL Ratio 0.56 RATIO (0.00-3.22); Osmolality Calculated 292 mOsm/kg (285-295); Sodium 135 mmol/L (136-145); Total Bilirubin 0.3 mg/dL (0.15-1.2); Total Protein 6.7 g/dL (6.6-8.7); Triglycerides 224 mg/dL (0-150)
--- NOTE | 2022-03-09 05:56 | ECG_ITS ---
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 Measurements Intervals [place] Rate: 115 P: 98 VA: 176 QRS: -4 QRSD: 90 T: 118 QT: 315 QTc: 436 Interpretive Statements SINUS TACHYCARDIA ST DEVIATION AND MODERATE T-WAVE ABNORMALITY, CONSIDER LATERAL ISCHEMIA [-0.1+ mV T-WAVE IN I/aVL/V5/V6] Compared to ECG 03/09/2022 02:15:38 Possible ischemia now present T-wave abnormality still present Electronically Signed On 03-10-2022 13:30:26 CDT by Duane Gonsalez M.D. [id number]
[2022-03-09 05:58] LABS: Troponin 5 2HR Delta 0.47 ABS# (0-10)
--- NOTE | 2022-03-09 06:00 | USCV_ITS ---
Naida Arevalo Age: 66 Gender: F : 1955 Exam Date: 03/09/2022 07:21 Ordering Phys: Reynaldo Rubalcava MD Technologist: OLENA Exam Location: [facility] Indication: CVA BP: 152 / 117 HR: 109 Rhythm: Atrial fibrillation Technical Quality: Adequate MEASUREMENTS (Male / Female) Normal Values 2D ECHO LVOT Diameter 2.0 cm LV Ejection Fraction MOD 2C 72.5 % LV Ejection Fraction 2C AL 75.2 % LA Diameter 2.5 cm LA Width 3.0 cm LA Height 4.2 cm RA Width 3.3 cm RA Height 3.5 cm Aorta at Sinotubular Diameter 2.2 cm IVC Diameter 1.8 cm M-MODE Aortic Annulus Diameter 2.7 cm LA Ao Ratio MM 0.9 MV E Point Septal Separation 0.6 cm DOPPLER AV Peak Velocity 430.7 cm/s LVOT Peak Velocity 161.0 cm/s AV Area Cont Eq vti 1.1 cm squared AV Area Cont Eq pk 1.2 cm squared MV Peak Velocity 127.0 cm/s MV Area PHT 4.4 cm squared MV E' Velocity 68.0 cm/s Mitral E to MV E' Ratio 10.2 Mitral E to LV E' Lateral Ratio 10.9 Mitral E to LV E' Septal Ratio 9.6 TR Peak Velocity 297.1 cm/s TR Peak Gradient 35.3 mmHg TR Mean Velocity 189.4 cm/s TR Mean Gradient 18.6 mmHg TR Velocity Time Integral 65.5 cm TV Peak E Velocity 77.0 cm/s Right Atrial Pressure 3.0 mmHg Pulmonary Artery Systolic Pressu 38.3 mmHg PV Peak Velocity 146.0 cm/s RV Acceleration Time 0.1 s RV Ejection Time 0.3 s RV AcT/ET 0.3 FINDINGS Left Ventricle Left ventricle is normal in size. LV systolic function is normal with EF of 65 to 70%. No regional wall motion abnormalities are seen. Right Ventricle LV is normal in size and function Right Atrium Normal-sized Left Atrium Normal in size Mitral Valve Mild mitral annular calcification. No significant stenosis. Mild mitral regurgitation. Aortic Valve Aortic valve is thickened. Mild aortic stenosis is seen. Aortic valve area of 1.2 cm2 and mean gradient 22 1 mmHg. Tricuspid Valve Trace tricuspid regurgitation. Insufficient TR jet to calculate RVSP. Pulmonic Valve Not well-visualized Pericardium Normal Aorta Normal in size IVC CONCLUSIONS LV systolic function are normal with EF of 65 to 70%. Moderate mitral annular calcification. Mild mitral regurgitation. Mild aortic stenosis with aortic valve area of 1.2 cm squared and mean gradient 22.1 mmHg. Trace tricuspid regurgitation. No comparison studies are available Duane Gonsalez MD (Electronically Signed) Final Date: 09 March 2022 12:02 S
[2022-03-09 06:01] LABS: Anion Gap 19.8 (5-19); Aspartate Amino Transferase 10 U/L (0-32); Potassium 4.8 mmol/L (3.5-5.1)
[2022-03-09 06:39] LABS: Estmated Average Glucose 151; Hemoglobin A1C 6.9 % (4.0-6.0)
[2022-03-09 07:41] LABS: Troponin 5 6HR 13.15 ng/L (0-10)
[2022-03-09 08:11] LABS: Troponin 5 6HR Delta 2.15 ng/L (0-12)
[2022-03-09 08:58] LABS: Glucose Point of Care 207 mg/dL (70-110)
[2022-03-09] MEDS: insulin lispro 100 unit/1 mL SUBCUT ×4 (09:00→20:55)
[2022-03-09 10:58] LABS: SARS Covid-2 Antigen Negative (Negative)
[2022-03-09 11:28] LABS: Glucose Point of Care 165 mg/dL (70-110)
--- NOTE | 2022-03-09 13:17 | PC.OT ---
OT orders received to evaluate and treat. OT attempted evaluation--pt. asleep and would not wake. Evaluation to be attempted tomorrow morning.
--- NOTE | 2022-03-09 14:42 | PM.PN ---
Subjective Subjective: Overnight events reviewed. Patient had an episode of desaturation overnight suspect that this may be related to aspiration. Per daughter who is at the bedside, patient's mother had attempted to feed her yesterday with Ensure, however her head and had been flat. It is possible that this may have resulted in aspiration. CTA performed overnight was negative for any PE. No gross consolidation is noted at this time. Patient has been started on empiric antibiotic coverage. Currently oxygen requirements are down to supplemental 2 L/min. Patient worked with physical therapy earlier today. At this time she appears to be tired, resting comfortably in bed. Was not awake enough to complete a swallow evaluation today. This will be reattempted. Patient is n.p.o. for now. T-max 99.6. White count increased to 17,000. Medications: Reviewed: Yes Vitals/I&O/Wt Last Vital Signs Temp 99.6 F 03/09/22 12:15 Pulse 113 H 03/09/22 14:36 Resp 18 03/09/22 12:15 BP 164/73 03/09/22 12:15 Pulse Ox 97 03/09/22 12:15 O2 Del Method 03/09/22 12:15 O2 Flow Rate 2 03/09/22 12:15 03/08/22 03/09/22 03/09/22 22:59 06:59 14:59 Intake Total 815 / 815 110 / 110 Output Total 350 / 350 Balance 465 / 465 110 / 110 Weight last 48 hrs Weight 108.862 kg Physical Exam Narrative: General: No acute distress, resting comfortably in, wakes up to calling name. HEENT: PERRLA, pupils bilaterally equal and reactive, pallors not present Chest: Normal vesicular breath sounds, no added sounds, equal good air entry bilaterally CVS: S1-S2 regular, no murmurs, no tachycardia, no gallops, no rubs Abdomen: Soft, nontender, no organomegaly, bowel sounds present Neuro: Left-sided hemiparesis. Extremities: Status post transmetatarsal amputation of the left foot. Urinary Catheter Management: Em: Cath Placed During This Visit: yes Reason for Continuing Indwelling Catheter: Accurate Measurement of Urinary Output in Critically Ill Patients Urinary Catheter Date of Insertion: 03/08/22 Urinary Catheter Time of Insertion: 18:11 Data : 03/09/22 03:15 03/09/22 03:15 A&P Assessment and plan (1) CVA (cerebral vascular accident): Patient presents with subacute CVA, right frontal region. Symptomatology from outside physician reports this is been going on at least 2 days. She is not a candidate for tPA Symptoms currently include dense left hemiparesis, likely visual field loss, slurred speech, decreased responsiveness. Patient is known to have bilateral carotid artery disease stenosis per description by her daughter. 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 He is status post transmetatarsal amputation for the same. Continue supportive care IV fluids Echocardiogram today shows LV systolic function normal with EF of 65 to 70%. Mild aortic stenosis with CONSUELO of 1.2 cm?. Carotid duplex currently pending. Per daughter she has known bilateral carotid artery disease for which patient has declined intervention in the past. Lovenox Appreciate therapy consultations Will need placement at SNF Telemetry monitoring without any arrhythmias. Noted sinus tachycardia. Status: Acute (2) Elevated white blood cell count: May be related to your ceftriaxone 1 g IV every 24 hours. CTA thus far without evidence of consolidation. No PE. Status: Acute (3) Diabetes mellitus: Sliding scale insulin Status: Acute (4) Hypertension: Permissive hypertension currently Status: Acute (5) Aspiration pneumonia: Status: Acute Plan Multiple other medical problems as outlined in past medical history Full code currently. Will need clarified Lovenox will suffice for DVT prophylaxis. Attestations Medical Necessity Statement*: Needs continued hospital admission for poststroke care, therapy assessments, disposition planning. 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
[2022-03-09 17:05] LABS: Glucose Point of Care 177 mg/dL (70-110)
[2022-03-09] MEDS: enoxaparin 40 mg/0.4 mL Syringe SUBCUT (17:17)
--- NOTE | 2022-03-09 17:56 | PC.NURSE ---
Patient transferred to second floor room 253-1. Patient resting in bed with floor staff at bedside. Patient paper chart left with staff at front desk agent.
[2022-03-09 20:47] LABS: Glucose Point of Care 185 mg/dL (70-110)
--- NOTE | 2022-03-09 21:14 | PC.NURSE ---
Addendum entered by Shivani Harrison RN 03/09/22 21:30: Morphine ordered. Patient refused morphine. Original Note: Dr. Hastings notified of patient c/o pain. Patient cannot swallow PO.
[2022-03-10] VITALS (9 sets, daily range): BP systolic 106–146; BP diastolic 69–87; PULSE 69–115; RESP 12–18; TEMP 36.4–37.2; O2SAT 94–99
[2022-03-10] MEDS: cefTRIAXone 1,000 MG in sodium chloride 0.9% (plus) 50 ML 100 MG IV (01:55)
[2022-03-10 06:38] LABS: Glucose Point of Care 164 mg/dL (70-110)
[2022-03-10] MEDS: insulin lispro 100 unit/1 mL SUBCUT ×4 (08:58→21:25)
[2022-03-10 11:05] LABS: Glucose Point of Care 156 mg/dL (70-110)
--- NOTE | 2022-03-10 15:04 | PM.PN ---
Subjective Subjective: Much more alert and awake today. She is able to correctly tell me her name age date of and the fact that she is in the hospital. Identifies her daughter at the bedside. Still with significant left sided weakness. Slurred speech but content normal. Passed her swallow eval today, now tolerating a diet. Has been weaned down to room air today. Medications: Reviewed: Yes Vitals/I&O/Wt Last Vital Signs Temp 97.6 F 03/10/22 12:00 Pulse 92 03/10/22 12:00 Resp 16 03/10/22 12:00 BP 117/87 03/10/22 12:00 Pulse Ox 99 03/10/22 12:00 O2 Del Method 03/10/22 12:00 O2 Flow Rate 2 03/10/22 09:49 03/10/22 03/10/22 03/10/22 06:59 14:59 22:59 Intake Total 50 / 270 110 / 110 Output Total 250 / 600 Balance -200 / -330 110 / 110 Weight last 48 hrs Weight 108.862 kg Physical Exam Narrative: General: No acute distress, AO x3 HEENT: PERRLA, pupils bilaterally equal and reactive, pallors not present Chest: Coarse crackles to auscultation right infra axillary area CVS: S1-S2 regular, no murmurs, no tachycardia, no gallops, no rubs Abdomen: Soft, nontender, no organomegaly, bowel sounds present Neuro: Left-sided dense hemiplegia, slurred speech, dysarthria present Urinary Catheter Management: Em: Cath Placed During This Visit: yes Reason for Continuing Indwelling Catheter: Acute Urinary Retention or Obstruction Urinary Catheter Date of Insertion: 03/08/22 Urinary Catheter Time of Insertion: 18:11 Data : 03/09/22 03:15 03/09/22 03:15 Micro: Microbiology 03/08/22 18:23 Urine Culture - Preliminary Urine,Clean Catch A&P Assessment and plan (1) CVA (cerebral vascular accident): Patient presents with subacute CVA, right frontal region. not a candidate for tPA Symptoms currently include dense left hemiparesis, likely visual field loss, slurred speech, decreased responsiveness however the latter appears to be improving at this time.. Patient is known to have bilateral carotid artery disease stenosis per description by her daughter. She has declined any intervention in the past for her carotid disease. 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 SHe is status post transmetatarsal amputation for the same. Was followed by infectious disease in [place]. Has had no active interim infective issues. Continue supportive care Echocardiogram shows LV systolic function normal with EF of 65 to 70%. Mild aortic stenosis with CONSUELO of 1.2 cm?. Continue aspirin 81 mg p.o. daily, Lipitor 40 mg p.o. daily and Plavix 75 mg p.o. daily Lovenox for DVT prophylaxis Appreciate therapy consultations Started on Keppra 1000 mg IV every 12 hours for witnessed seizures on the night of 03/08. We will transition this to p.o. Keppra. Will need placement at [facility] Telemetry monitoring without any arrhythmias. Noted sinus tachycardia. Status: Acute (2) Elevated white blood cell count: May be related to UTI versus aspiration pneumonia ceftriaxone 1 g IV every 24 hours. CTA without evidence of consolidation. No PE. Status: Acute (3) Diabetes mellitus: Sliding scale insulin Status: Acute (4) Hypertension: Permissive hypertension currently Status: Acute (5) Aspiration pneumonia: Overnight on the night of 03/08 she developed acute hypoxic respiratory failure. Suspect that this was related to attempts at feeding earlier that evening with Ensure. Patient underwent a swallow evaluation today with no noted aspiration concerns. Status: Acute Plan Multiple other medical problems as outlined in past medical history Full code currently. Lovenox will suffice for DVT prophylaxis. Attestations Medical Necessity Statement*: disposition planning ongoing, iv abx, swallow eval and therapy ongoing Coding Level of Care Code Acute Retail Event And Sales Assistant for Nazanin Hay Diagnoses CVA (cerebral vascular accident) I63.9 Elevated white blood cell count D72.829 Diabetes mellitus E11.9 Hypertension I10 Aspiration pneumonia J69.0
[2022-03-10 17:17] LABS: Glucose Point of Care 149 mg/dL (70-110)
[2022-03-10] MEDS: enoxaparin 40 mg/0.4 mL Syringe SUBCUT (17:23)
[2022-03-10] MEDS: levETIRAcetam 500 mg Tablet 1000 MG PO (17:23)
[2022-03-10 21:02] LABS: Glucose Point of Care 153 mg/dL (70-110)
[2022-03-10] MEDS: atorvastatin 40 mg Tablet PO (21:25)
[2022-03-10] MEDS: phenol oral Spray 177 mL 3 SPRAY MUCOUS MEM (21:25)
[2022-03-10] MEDS: lanolin oint 7 gm 1 APPLIC TOPICAL (21:39)
[2022-03-11] VITALS (7 sets, daily range): BP systolic 107–166; BP diastolic 69–90; PULSE 86–101; RESP 12–17; TEMP 36.5–37; O2SAT 94–98
[2022-03-11] MEDS: cefTRIAXone 1,000 MG in sodium chloride 0.9% (plus) 50 ML 100 MG IV (02:32)
--- NOTE | 2022-03-11 04:17 | PC.NURSE ---
Patient asking for Benadryl for itching. Dr. Hastings notified.
[2022-03-11] MEDS: diphenhydrAMINE 25 mg Capsule PO (04:22)
[2022-03-11 04:40] LABS: Basophils # 0.1 10^3/uL (0.0-0.1); Basophils % 0.4 %; Eosinophils # 0.2 10^3/uL (0.0-0.8); Eosinophils % 1.5 %; Hematocrit 39.4 % (37.0-47.0); Hemoglobin 12.3 g/dL (11.5-15.3); Lymphocytes % 26.1 %; Mean Corpuscular HGB Conc 31.2 g/dL (30.0-36.0); Mean Corpuscular Hemoglobin 28.7 pg (28.0-34.0); Mean Corpuscular Volume 91.8 fl (81-99); Monocytes % 8.9 %; Neutrophils % 62.7 %; Nucleated Red Blood Cells % 0 %; Platelet Count 388 10^3/cmm (130-400); Red Blood Count 4.29 10^6/uL (4.1-5.3); Red Cell Distribution Width 13.2 % (12.1-15.1); White Blood Count 11.5 10^3/uL (4.0-10.0)
[2022-03-11 04:58] LABS: Alanine Aminotransferase 14 U/L (0-33); Albumin Level 3.4 g/dL (3.5-5.2); Alkaline Phosphatase 73 U/L (35-105); Anion Gap 18.9 (5-19); Aspartate Amino Transferase 18 U/L (0-32); Blood Urea Nitrogen 36 mg/dL (8-23); Calcium 9.5 mg/dL (8.5-10.5); Carbon Dioxide 20 mmol/L (22-29); Chloride 100 mmol/L (98-107); Globulin 4.2 g/dL (1.3-4.6); Glomerular Filtration Rate 100.3 mL/min (90-130); Glucose 150 mg/dL (65-115); Osmolality Calculated 291 mOsm/kg (285-295); Potassium 3.9 mmol/L (3.5-5.1); Sodium 135 mmol/L (136-145); Total Bilirubin 0.3 mg/dL (0.15-1.2); Total Protein 7.6 g/dL (6.6-8.7)
[2022-03-11] MEDS: acetaminophen 500 mg Tablet PO ×3 (06:38→17:06)
[2022-03-11 06:39] LABS: Glucose Point of Care 150 mg/dL (70-110)
[2022-03-11] MEDS: insulin lispro 100 unit/1 mL SUBCUT ×4 (10:20→21:29)
[2022-03-11] MEDS: levETIRAcetam 500 mg Tablet 1000 MG PO ×2 (10:20→17:06)
[2022-03-11] MEDS: clopidogrel 75 mg Tablet PO (10:21)
[2022-03-11] MEDS: aspirin 81 mg EC Tablet PO (10:21)
[2022-03-11 11:14] LABS: Glucose Point of Care 170 mg/dL (70-110)
--- NOTE | 2022-03-11 14:15 | PC.SOCIAL ---
Pg 2 IMM Explained to pt's daughter Pg 2 IMM. No questions voiced. Provided pt a copy. Initialed, dated, & timed a copy & placed in chart.
[2022-03-11 17:03] LABS: Glucose Point of Care 177 mg/dL (70-110)
[2022-03-11] MEDS: enoxaparin 40 mg/0.4 mL Syringe SUBCUT (17:06)
--- NOTE | 2022-03-11 17:19 | PM.PN ---
Subjective Subjective: She denies any new or change in her symptoms. Denies pain or discomfort. Denies any needs. Vitals/I&O/Wt Last Vital Signs Temp 97.9 F 03/11/22 16:00 Pulse 88 03/11/22 16:00 Resp 12 03/11/22 16:00 BP 107/74 03/11/22 16:00 Pulse Ox 95 03/11/22 16:00 O2 Del Method 03/11/22 16:00 O2 Flow Rate 2 03/10/22 09:49 03/11/22 03/11/22 03/11/22 06:59 14:59 22:59 Intake Total 350 / 460 600 / 600 Output Total 475 / 475 Balance -125 / -15 600 / 600 Physical Exam Const: COMMON NORMALS: patient oriented x3 and alert GENERAL APPEARANCE: cooperative ORIENTATION/CONSCIOUSNESS: Yes awake HENMT: COMMON NORMALS: oropharynx normal Neck/C-Spine: COMMON NORMALS: no JVD Resp: COMMON NORMALS: normal respiratory effort and clear to auscultation bilaterally AUSCULTATION: clear to auscultation bilaterally Cardio: COMMON NORMALS: no JVD, regular rhythm, S1 normal heart sound present, S2 normal heart sound present and No murmurs present (Cardio) RHYTHM: regular rhythm HEART SOUNDS: S1 normal heart sound present and S2 normal heart sound present GI: COMMON NORMALS: Normal to inspection, nondistended, normoactive bowel sounds present, Soft to palpation and non-tender PALPATION: Yes Soft to palpation Extremity: COMMON NORMALS: no joint enlargement and no pedal edema Neuro: COMMON NORMALS: patient oriented x3 SENSORIUM/ORIENTATION: Yes alert COORDINATION/BALANCE: other (No dysmetria on FNF, but made more difficult with visual field loss) SPEECH: speech normal SENSORY EXAM: Yes extremities (Diminished on L); No Normal double simultaneous stimulation for sensation MOTOR EXAM: Other motor observations present (L hemiplegia) COORDINATION: other (No dysmetria on FNF, but made more difficult with visual field loss) OTHER: Awake and alert, somewhat slowed responses, but follows directions. Tracking, but starts tracking about midway, left side neglect or visual field loss. Skin: COMMON NORMALS: no rashes or lesions noted GENERAL SKIN EXAM: no rashes or lesions noted Urinary Catheter Management: Em: Cath Placed During This Visit: yes Reason for Continuing Indwelling Catheter: Acute Urinary Retention or Obstruction Urinary Catheter Date of Insertion: 03/08/22 Urinary Catheter Time of Insertion: 18:11 Data : 03/11/22 04:20 03/11/22 04:20 Micro: Microbiology 03/08/22 18:23 Urine Culture - Final Urine,Clean Catch A&P Assessment and plan (1) CVA (cerebral vascular accident): Continue aspirin, statin, has been also initiated on clopidogrel. Continue work with therapy. Continue SNF arrangements. Keppra following seizure. Patient presents with subacute CVA, right frontal region. not a candidate for tPA Symptoms currently include dense left hemiparesis, likely visual field loss, slurred speech, decreased responsiveness however the latter appears to be improving at this time.. Patient is known to have bilateral carotid artery disease stenosis per description by her daughter. She has declined any intervention in the past for her carotid disease. 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 SHe is status post transmetatarsal amputation for the same. Was followed by infectious disease in [place]. Has had no active interim infective issues. Continue supportive care Echocardiogram shows LV systolic function normal with EF of 65 to 70%. Mild aortic stenosis with CONSUELO of 1.2 cm?. Lovenox for DVT prophylaxis Started on Keppra 1000 mg IV every 12 hours for witnessed seizures on the night of 03/08. We will transition this to p.o. Keppra. Status: Acute (2) Elevated white blood cell count: May be related to UTI versus aspiration pneumonia ceftriaxone 1 g IV every 24 hours. Urine culture with mixed superficial daquan. Leukocytosis improved down to 11.5. Will check procalcitonin. Likely should be able to de-escalate antibiotic. CTA without evidence of consolidation. No PE. Status: Acute (3) Diabetes mellitus: Sliding scale insulin Status: Acute (4) Hypertension: Blood pressures variable. Sometimes soft. Hold off lisinopril for now. Status: Acute (5) Aspiration pneumonia: Improving. Weaned off oxygen. Currently on Rocephin. Check procalcitonin. Continue aspiration precautions, dysphagia diet. Overnight on the night of 03/08 she developed acute hypoxic respiratory failure. Suspect that this was related to attempts at feeding earlier that evening with Ensure. Patient underwent a swallow evaluation today with no noted aspiration concerns. Status: Acute Plan Multiple other medical problems as outlined in past medical history Full code currently. Lovenox will suffice for DVT prophylaxis. Attestations Medical Necessity Statement*: Continue admission for assessment and management following CVA, with left-sided hemiplegia, de-escalation of antibiotic following possible UTI, following aspiration event and respiratory failure, disposition planning. 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
[2022-03-11] MEDS: atorvastatin 40 mg Tablet PO (21:29)
[2022-03-11 21:32] LABS: Glucose Point of Care 321 mg/dL (70-110)
[2022-03-11] MEDS: scopolamine 1.5 Patch 1 PATCH TRANSDERMA (23:30)
[2022-03-12] VITALS (12 sets, daily range): BP systolic 119–166; BP diastolic 69–99; PULSE 88–102; RESP 15–18; TEMP 36.4–37.2; O2SAT 94–100
[2022-03-12] MEDS: cefTRIAXone 1,000 MG in sodium chloride 0.9% (plus) 50 ML 100 MG IV (02:27)
[2022-03-12 04:56] LABS: Basophils # 0.1 10^3/uL (0.0-0.1); Basophils % 0.5 %; Eosinophils # 0.1 10^3/uL (0.0-0.8); Hematocrit 38.8 % (37.0-47.0); Hemoglobin 11.6 g/dL (11.5-15.3); Lymphocytes # 3.1 10^3/uL (0.8-4.8); Lymphocytes % 29.9 %; Mean Corpuscular HGB Conc 29.9 g/dL (30.0-36.0); Mean Corpuscular Hemoglobin 28.4 pg (28.0-34.0); Mean Corpuscular Volume 95.1 fl (81-99); Mean Platelet Volume 10.1 fL (7.4-10.4); Monocytes # 0.9 10^3/uL (0.2-0.9); Neutrophils % 59.3 %; Nucleated Red Blood Cells % 0 %; Platelet Count 389 10^3/cmm (130-400); Red Blood Count 4.08 10^6/uL (4.1-5.3); Red Cell Distribution Width 12.9 % (12.1-15.1); White Blood Count 10.4 10^3/uL (4.0-10.0)
[2022-03-12 06:26] LABS: Glucose Point of Care 138 mg/dL (70-110)
[2022-03-12 06:43] LABS: Alanine Aminotransferase 15 U/L (0-33); Albumin Level 3.1 g/dL (3.5-5.2); Alkaline Phosphatase 70 U/L (35-105); Anion Gap 18.6 (5-19); Aspartate Amino Transferase 15 U/L (0-32); Blood Urea Nitrogen 35 mg/dL (8-23); Calcium 9.2 mg/dL (8.5-10.5); Carbon Dioxide 18 mmol/L (22-29); Chloride 101 mmol/L (98-107); Globulin 3.8 g/dL (1.3-4.6); Glomerular Filtration Rate 100.3 mL/min (90-130); Glucose 139 mg/dL (65-115); Osmolality Calculated 288 mOsm/kg (285-295); Potassium 3.6 mmol/L (3.5-5.1); Sodium 134 mmol/L (136-145); Total Bilirubin 0.2 mg/dL (0.15-1.2); Total Protein 6.9 g/dL (6.6-8.7)
[2022-03-12] MEDS: clopidogrel 75 mg Tablet PO (09:42)
[2022-03-12] MEDS: aspirin 81 mg EC Tablet PO (09:43)
[2022-03-12] MEDS: levETIRAcetam 500 mg Tablet 1000 MG PO ×2 (09:43→17:28)
[2022-03-12 11:05] LABS: Glucose Point of Care 204 mg/dL (70-110)
[2022-03-12] MEDS: insulin lispro 100 unit/1 mL SUBCUT ×3 (12:17→21:24)
[2022-03-12] MEDS: acetaminophen 500 mg Tablet PO ×2 (12:20→18:36)
[2022-03-12 17:05] LABS: Glucose Point of Care 198 mg/dL (70-110)
[2022-03-12] MEDS: enoxaparin 40 mg/0.4 mL Syringe SUBCUT (17:28)
--- NOTE | 2022-03-12 20:35 | P.PN_ITS ---
Subjective Subjective: Denies any new symptoms today. Denies pain or discomfort, although did have some pain in her left shoulder asking to have the arm repositioned which we placed on a pillow. Vitals/I&O/Wt Last Vital Signs Temp 98.3 F 03/12/22 19:54 Pulse 92 03/12/22 19:54 Resp 16 03/12/22 19:54 BP 166/84 03/12/22 19:54 Pulse Ox 94 03/12/22 19:54 O2 Del Method 03/12/22 19:54 O2 Flow Rate 2 03/10/22 09:49 03/12/22 03/12/22 03/12/22 06:59 14:59 22:59 Intake Total 50 / 1070 480 / 480 120 / 600 Output Total 575 / 575 Balance -525 / 495 480 / 480 120 / 600 Physical Exam Const: COMMON NORMALS: patient oriented x3 and alert GENERAL APPEARANCE: cooperative ORIENTATION/CONSCIOUSNESS: Yes awake OTHER: Sleeping, wakes up to voice. HENMT: COMMON NORMALS: oropharynx normal Neck/C-Spine: COMMON NORMALS: no JVD Resp: COMMON NORMALS: normal respiratory effort and clear to auscultation jovanni aterally AUSCULTATION: clear to auscultation bilaterally Cardio: COMMON NORMALS: no JVD, regular rhythm, S1 normal heart sound present, S2 normal heart sound present and No murmurs present (Cardio) RHYTHM: regular rhythm HEART SOUNDS: S1 normal heart sound present and S2 normal heart sound present GI: COMMON NORMALS: Normal to inspection, nondistended, normoactive bowel sounds present, Soft to palpation and non-tender PALPATION: Yes Soft to palpation Extremity: COMMON NORMALS: no joint enlargement and no pedal edema Neuro: COMMON NORMALS: patient oriented x3 SENSORIUM/ORIENTATION: Yes alert COORDINATION/BALANCE: other (No dysmetria on FNF, but made more difficult with visual field loss) SPEECH: speech normal SENSORY EXAM: Yes extremities (Diminished on L); No Normal double simultaneous stimulation for sensation MOTOR EXAM: Other motor observations present (L hemiplegia) COORDINATION: other (No dysmetria on FNF, but made more difficult with visual field loss) OTHER: Awake and alert, somewhat slowed responses, but follows directions. Tracking, but starts tracking about midway, left side neglect or visual field loss. Skin: COMMON NORMALS: no rashes or lesions noted GENERAL SKIN EXAM: no rashes or lesions noted Urinary Catheter Management: Em: Cath Placed During This Visit: yes Reason for Continuing Indwelling Catheter: Acute Urinary Retention or Obstruction Urinary Catheter Date of Insertion: 03/08/22 Urinary Catheter Time of Insertion: 18:11 Data : 03/12/22 04:25 03/12/22 06:13 A&P Assessment and plan (1) CVA (cerebral vascular accident): Continue aspirin, statin, has been also initiated on clopidogrel. Continue work with therapy. Keppra following seizure. Pending prior authorization to proceed to SNF for rehabilitation. Patient presents with subacute CVA, right frontal region. not a candidate for tPA Symptoms currently include dense left hemiparesis, likely visual field loss, slurred speech, decreased responsiveness however the latter appears to be improving at this time.. Patient is known to have bilateral carotid artery disease stenosis per description by her daughter. She has declined any intervention in the past for her carotid disease. 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 SHe is status post transmetatarsal amputation for the same. Was followed by infectious disease in [place]. Has had no active interim infective issues. Continue supportive care Echocardiogram shows LV systolic function normal with EF of 65 to 70%. Mild aortic stenosis with CONSUELO of 1.2 cm?. Lovenox for DVT prophylaxis Started on Keppra 1000 mg IV every 12 hours for witnessed seizures on the night of 03/08. p.o. Keppra. Status: Acute (2) Elevated white blood cell count: Resolving. Procalcitonin 0.1. Discontinue ceftriaxone. May be related to UTI versus aspiration pneumonia Oxygenating well. Urine culture without pathogenic growth. CTA without evidence of consolidation. No PE. Status: Acute (3) Diabetes mellitus: Sliding scale insulin Status: Acute (4) Hypertension: Blood pressures increasing. Resume lisinopril at lower dose 2.5 mg. Status: Acute (5) Aspiration pneumonia: Improving. Weaned off oxygen. Stop Rocephin. Check procalcitonin. Continue aspiration precautions, dysphagia diet. Overnight on the night of 03/08 she developed acute hypoxic respiratory failure. Suspect that this was related to attempts at feeding earlier that evening with Ensure. Patient underwent a swallow evaluation today with no noted aspiration concerns. Status: Acute Plan Multiple other medical problems as outlined in past medical history Full code currently. Lovenox will suffice for DVT prophylaxis. Attestations Medical Necessity Statement*: Continue admission for reassessment following CVA, de-escalate antibiotics, pending parasitization to proceed to SNF for rehab ilitation. 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
[2022-03-12] MEDS: atorvastatin 40 mg Tablet PO (21:16)
[2022-03-12 21:25] LABS: Glucose Point of Care 202 mg/dL (70-110)
[2022-03-13] VITALS (9 sets, daily range): BP systolic 119–180; BP diastolic 69–96; PULSE 84–113; RESP 15–18; TEMP 36.4–37.2; O2SAT 92–96
[2022-03-13] MEDS: labetalol 5 mg/mL SDV 20mL 10 MG IVP (04:20)
[2022-03-13 05:38] LABS: Basophils % 0.3 %; Eosinophils # 0.2 10^3/uL (0.0-0.8); Eosinophils % 1.4 %; Hematocrit 37.2 % (37.0-47.0); Hemoglobin 11.5 g/dL (11.5-15.3); Lymphocytes # 3.2 10^3/uL (0.8-4.8); Mean Corpuscular HGB Conc 30.9 g/dL (30.0-36.0); Mean Corpuscular Hemoglobin 28.7 pg (28.0-34.0); Mean Corpuscular Volume 92.8 fl (81-99); Mean Platelet Volume 9.9 fL (7.4-10.4); Monocytes % 8.9 %; Neutrophils # 7.02 10^3/uL (1.8-7.7); Nucleated Red Blood Cells % 0 %; Platelet Count 423 10^3/cmm (130-400); Red Blood Count 4.01 10^6/uL (4.1-5.3); Red Cell Distribution Width 12.8 % (12.1-15.1); White Blood Count 11.5 10^3/uL (4.0-10.0)
[2022-03-13 05:54] LABS: Alanine Aminotransferase 15 U/L (0-33); Albumin Level 3.1 g/dL (3.5-5.2); Alkaline Phosphatase 73 U/L (35-105); Aspartate Amino Transferase 15 U/L (0-32); Blood Urea Nitrogen 27 mg/dL (8-23); Calcium 9.3 mg/dL (8.5-10.5); Carbon Dioxide 16 mmol/L (22-29); Chloride 101 mmol/L (98-107); Globulin 3.7 g/dL (1.3-4.6); Glomerular Filtration Rate 100.3 mL/min (90-130); Glucose 189 mg/dL (65-115); Osmolality Calculated 286 mOsm/kg (285-295); Sodium 133 mmol/L (136-145); Total Bilirubin 0.2 mg/dL (0.15-1.2); Total Protein 6.8 g/dL (6.6-8.7)
[2022-03-13 05:56] LABS: Anion Gap 19.5 (5-19); Potassium 3.5 mmol/L (3.5-5.1)
[2022-03-13 06:28] LABS: Glucose Point of Care 208 mg/dL (70-110)
[2022-03-13] MEDS: aspirin 81 mg EC Tablet PO (08:06)
[2022-03-13] MEDS: clopidogrel 75 mg Tablet PO (08:08)
[2022-03-13] MEDS: lisinopril 5 mg Tablet 2.5 MG PO (08:09)
[2022-03-13] MEDS: levETIRAcetam 500 mg Tablet 1000 MG PO ×2 (08:12→17:24)
[2022-03-13] MEDS: acetaminophen 500 mg Tablet PO ×2 (08:13→17:22)
[2022-03-13] MEDS: insulin lispro 100 unit/1 mL SUBCUT ×3 (08:15→17:21)
--- NOTE | 2022-03-13 09:12 | PC.CHAP ---
Pastoral Care Encounter/Spiritual Assessment Type of Contact [] Declined heel reducer visit [] Patient/Family/Request visit [] Outpatient visit [] Follow-up visit [] Physician referral [] Code/Alert [x] Routine visit [] Staff referral [] Actively dying [] Patient sleeping [] Family support [] [] Out of room [] Palliative care [] [x] Receiving care in room [] Pre-surgical visit [] Trauma [] Long length of stay [] ICU visit [] Other: Relational/Emotional Strength [] Patient feels connected with others/family/visitors/staff [] Distress [] Loneliness/isolation [] Abandonment Spirituality of Patient [] Person of Mikki [] Attends Spiritism of their Mikki [] Believes in Prayer [] Reads Bible or Gnosticism materials [] There are Spiritual issues to be addressed Layout Worker Interventions [] Prayer [] Active listening [] Non-anxious presence [] Spiritual/emotional support [] Crisis/trauma care [] Spiritual counseling [] Bereavement support [] Provided bereavement packet [] Provided Bible/devotional materials [] Provided toy/stuffed animal, coloring book to patient or family member [] Provided Communion [] Anointing/[employer] [] Salvation [] Completed spiritual assessment [] Other: Impact on Illness or Injury [] Angry [] Fearful [] Anxious [] Often cries [] Exhaustion [] Unable to work [] Unable to attend evangelical [] Unable to walk/stand [] Unable to read [] Unable to drive [] Unable to eat/drink [] Unable to sleep [] Unable to be with family [] Patient intubated [] Other: Summary Time spent with patient
[2022-03-13 11:27] LABS: Glucose Point of Care 195 mg/dL (70-110)
--- NOTE | 2022-03-13 12:19 | PC.SOCIAL ---
IMM Updated Updated pt on IMM. No questions voiced. Provided pt a copy. Initialed, dated, & timed copy in chart.
[2022-03-13 17:05] LABS: Glucose Point of Care 211 mg/dL (70-110)
[2022-03-13] MEDS: enoxaparin 40 mg/0.4 mL Syringe SUBCUT (17:21)
[2022-03-13] MEDS: atorvastatin 40 mg Tablet PO (21:00)
--- NOTE | 2022-03-13 21:01 | P.PN_ITS ---
Subjective Subjective: She is denying any additional new symptoms. No pain in her left shoulder. Today overall is feeling a bit better. Working with therapy. Vitals/I&O/Wt Last Vital Signs Temp 98 F 03/13/22 20:00 Pulse 89 03/13/22 20:42 Resp 16 03/13/22 20:42 BP 138/72 03/13/22 20:00 Pulse Ox 95 03/13/22 20:42 O2 Del Method 03/13/22 20:42 O2 Flow Rate 2 03/12/22 20:00 03/13/22 03/13/22 03/13/22 06:59 14:59 22:59 Intake Total 120 / 720 600 / 600 Balance 120 / 70 600 / 600 Physical Exam Const: COMMON NORMALS: patient oriented x3 and alert GENERAL APPEARANCE: cooperative ORIENTATION/CONSCIOUSNESS: Yes awake HENMT: COMMON NORMALS: oropharynx normal Neck/C-Spine: COMMON NORMALS: no JVD Resp: COMMON NORMALS: normal respiratory effort and clear to auscultation bilaterally AUSCULTATION: clear to auscultation bilaterally Cardio: COMMON NORMALS: no JVD, regular rhythm, S1 normal heart sound present, S2 normal heart sound present and No murmurs present (Cardio) RHYTHM: regular rhythm HEART SOUNDS: S1 normal heart sound present and S2 normal heart sound present GI: COMMON NORMALS: Normal to inspection, nondistended, normoactive bowel sounds present, Soft to palpation and non-tender PALPATION: Yes Soft to palpation Extremity: COMMON NORMALS: no joint enlargement and no pedal edema Neuro: COMMON NORMALS: patient oriented x3 SENSORIUM/ORIENTATION: Yes alert COORDINATION/BALANCE: other (No dysmetria on FNF, but made more difficult with visual field loss) SPEECH: speech normal SENSORY EXAM: Yes ex tremities (Diminished on L); No Normal double simultaneous stimulation for sensation MOTOR EXAM: Other motor observations present (L hemiplegia) COORDINATION: other (No dysmetria on FNF, but made more difficult with visual field loss) Skin: COMMON NORMALS: no rashes or lesions noted GENERAL SKIN EXAM: no rashes or lesions noted WOUNDS: Yes surgical site (no hematoma palpable) Details: no odor Urinary Catheter Management: Em: Cath Placed During This Visit: yes Reason for Continuing Indwelling Catheter: Acute Urinary Retention or Obstruction Urinary Catheter Date of Insertion: 03/08/22 Urinary Catheter Time of Insertion: 18:11 Data : 03/13/22 05:13 03/13/22 05:13 A&P Assessment and plan (1) CVA (cerebral vascular accident): Continue aspirin, statin, has been also initiated on clopidogrel. Continue work with therapy. Keppra following seizure. SNF declined by insurance, discussed with case management, further post di scharge planning discussions taking place with family. Requesting necessary equipment for possible return home as family cannot afford [id number] long- term facility rehabilitation. Patient presents with subacute CVA, right frontal region. not a candidate for tPA Symptoms currently include dense left hemiparesis, likely visual field loss, slurred speech, decreased responsiveness however the latter appears to be improving at this time.. Patient is known to have bilateral carotid artery disease stenosis per description by her daughter. She has declined any intervention in the past for her carotid disease. 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 SHe is status post transmetatarsal amputation for the same. Was followed by infectious disease in [place]. Has had no active interim infective issues. Continue supportive care Echocardiogram shows LV systolic function normal with EF of 65 to 70%. Mild aortic stenosis with CONSUELO of 1.2 cm?. Lovenox for DVT prophylaxis Started on Keppra 1000 mg IV every 12 hours for witnessed seizures on the night of 03/08. p.o. Keppra. Status: Acute (2) Elevated white blood cell count: Resolving. Procalcitonin 0.1. Stopped ceftriaxone. May be related to UTI versus aspiration pneumonia Oxygenating well. Urine culture without pathogenic growth. CTA without evidence of consolidation. No PE. Status: Acute (3) Diabetes mellitus: Sliding scale insulin Status: Acute (4) Hypertension: Blood pressures increasing. Resume lisinopril at lower dose 2.5 mg. Status: Acute (5) Aspiration pneumonia: Improving. Weaned off oxygen. Stopped Rocephin. Check procalcitonin. Continue aspiration precautions, dysphagia diet. Overnight on the night of 03/08 she developed acute hypoxic respiratory failure. Suspect that this was related to attempts at feeding earlier that evening with Ensure. Patient underwent a swallow evaluation today with no noted aspiration concerns. Status: Acute Plan Multiple other medical problems as outlined in past medical history Full code currently. Lovenox will suffice for DVT prophylaxis. Attestations Medical Necessity Statement*: Continue admission for management following CVA, discharge arrangements. 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
[2022-03-14] VITALS (8 sets, daily range): BP systolic 120–146; BP diastolic 69–85; PULSE 87–101; RESP 16–18; TEMP 36.6–37; O2SAT 94–98
[2022-03-14 00:30] LABS: Glucose Point of Care 217 mg/dL (70-110)
[2022-03-14 04:52] LABS: Basophils % 0.4 %; Eosinophils # 0.2 10^3/uL (0.0-0.8); Eosinophils % 1.4 %; Hematocrit 34.4 % (37.0-47.0); Lymphocytes # 3.5 10^3/uL (0.8-4.8); Lymphocytes % 32.9 %; Mean Corpuscular Hemoglobin 28.8 pg (28.0-34.0); Mean Corpuscular Volume 90.1 fl (81-99); Mean Platelet Volume 10.2 fL (7.4-10.4); Monocytes % 9.8 %; Neutrophils # 5.87 10^3/uL (1.8-7.7); Neutrophils % 55.2 %; Nucleated Red Blood Cells % 0 %; Platelet Count 424 10^3/cmm (130-400); Red Blood Count 3.82 10^6/uL (4.1-5.3); Red Cell Distribution Width 13.1 % (12.1-15.1); White Blood Count 10.6 10^3/uL (4.0-10.0)
[2022-03-14 05:15] LABS: Alanine Aminotransferase 14 U/L (0-33); Albumin Level 3.2 g/dL (3.5-5.2); Alkaline Phosphatase 72 U/L (35-105); Anion Gap 15.4 (5-19); Aspartate Amino Transferase 12 U/L (0-32); Blood Urea Nitrogen 29 mg/dL (8-23); Calcium 8.9 mg/dL (8.5-10.5); Carbon Dioxide 22 mmol/L (22-29); Chloride 102 mmol/L (98-107); Globulin 3.3 g/dL (1.3-4.6); Glucose 203 mg/dL (65-115); Osmolality Calculated 294 mOsm/kg (285-295); Potassium 3.4 mmol/L (3.5-5.1); Sodium 136 mmol/L (136-145); Total Bilirubin 0.2 mg/dL (0.15-1.2); Total Protein 6.5 g/dL (6.6-8.7)
[2022-03-14 07:37] LABS: Glucose Point of Care 219 mg/dL (70-110)
[2022-03-14] MEDS: clopidogrel 75 mg Tablet PO (08:19)
[2022-03-14] MEDS: levETIRAcetam 500 mg Tablet 1000 MG PO ×2 (08:19→17:49)
[2022-03-14] MEDS: acetaminophen 500 mg Tablet PO (08:19)
[2022-03-14] MEDS: aspirin 81 mg EC Tablet PO (08:20)
[2022-03-14] MEDS: insulin lispro 100 unit/1 mL SUBCUT ×4 (08:20→20:58)
[2022-03-14] MEDS: lisinopril 5 mg Tablet 2.5 MG PO (08:20)
[2022-03-14 11:14] LABS: Glucose Point of Care 188 mg/dL (70-110)
--- NOTE | 2022-03-14 12:24 | P.DS_ITS ---
Discharge Providers Date of Admission: 03/08/22 16:53 Date of Discharge: March 14, 2022 Attending Provider at Admission: Shelly Rubalcava MD Attending Provider at Discharge: Pedro Elder Diagnoses at Discharge Discharge Diagnosis (1) CVA (cerebral vascular accident): Status: Acute (2) Elevated white blood cell count: Status: Acute (3) Diabetes mellitus: Status: Acute (4) Hypertension: Status: Acute (5) Aspiration pneumonia: Status: Acute Reason for Visit Reason for Visit: stroke Hospital Course Hospital Course Pleasant 66-year-old lady with history of CVA, prior history of left side weakness, requiring assistance with transfers, ambulation, was transferred over from outside facility after sustaining additional CVA, not candidate for tPA, with previously known carotid disease not interested in intervention, during hospitalization he was changed from aspirin alone to aspirin and Plavix. Atorvastatin dose increased to 80 mg daily. Without finding of atrial fibrillation. Echocardiogram with normal ejection fraction, mild MVR, mild AVS, trace TVR. Hospitalization complicated by acute respiratory failure with hypox ia secondary to aspiration, bronchitis, aspiration pneumonitis. Required oxygen support transiently initially up to 15 L nonrebreather, subsequently weaned down to 2 L, then room air over several days. Complete antibiotic course for aspiration pneumonia as well as UTI. Was assessed by ST, PT, OT. Requiring max assist with transfers and bed, sit, and has been unable to walk. Additional deficits in left side visual lujan. Decreased left-sided sensation. Progressed deficits from prior as discussed with insurance with attempted arrangements for SNF, however, declined for skilled rehabilitation. Family unable to afford [id number] placement required for long-term facility with intermittent therapy. She will be returning home. As such Lev lift, hospital bed, wheelchair are requested for her. Continues on dysphagia diet with minced/moist foods, nectar thick liquids. She is asked to follow-up with neurology as well as wound care for pressure sores. Early pressure sore on sacrum with minimal skin breakdown, continue OPTi foam. Shear injury on right lower buttock. Left heel with healed prior pressure sore superior posteriorly, and at posterior aspect of the heel a healed callus after an old pressure ulcer. Needs continued heel protection. Physical Exam Const: COMMON NORMALS: patient oriented x3 and alert GENERAL APPEARANCE: cooperative ORIENTATION/CONSCIOUSNESS: Yes awake HENMT: COMMON NORMALS: oropharynx normal Neck/C-Spine: COMMON NORMALS: no JVD Resp: COMMON NORMALS: normal respiratory effort and clear to auscultation bilaterally AUSCULTATION: clear to auscultation bilaterally Cardio: COMMON NORMALS: no JVD, regular rhythm, S1 normal heart sound present, S2 normal heart sound present and No murmurs present (Cardio) RHYTHM: regular rhythm HEART SOUNDS: S1 normal heart sound present and S2 normal heart sound present GI: COMMON NORMALS: Normal to inspection, nondistended, normoactive bowel sounds present, Soft to palpation and non-tender PALPATION: Yes Soft to palpation Extremity: COMMON NORMALS: no joint enlargement and no pedal edema Neuro: COMMON NORMALS: patient oriented x3 SENSORIUM/ORIENTATION: Yes alert COORDINATION/BALANCE: other (No dysmetria on FNF, but made more difficult with visual field loss) SPEECH: speech normal SENSORY EXAM: Yes extremities (Diminished on L); No Normal double simultaneous stimulation for sensation MOTOR EXAM: Other motor observations present (L hemiplegia) COORDINATION: other (No dysmetria on FNF, but made more difficult with visual field loss) Skin: OTHER: Known early pressure sore sacrum with minimal skin breakdown. Noted shear injury on right lower buttock. Old healed pressure ulcer superior posteriorly above the left heel. At p osterior aspect of the left heel about 2 cm healed prior pressure ulcer with callus formation. Urinary Catheter Management: Em: Cath Placed During This Visit: yes Reason for Continuing Indwelling Catheter: Acute Urinary Retention or Obstruction Urinary Catheter Date of Insertion: 03/08/22 Urinary Catheter Time of Insertion: 18:11 Discharge Data Studies Completed and Pending Completed Studies During Hospitalization Category Date Time Status CTA PE [CT angio chest PE protcl [id number]] Urgent Cat Scan 03/09/22 01:53 Completed CXRP [XR chest 1V portable [id number]] Stat Exams 03/09/22 00:12 Completed XR chest 1V portable [id number] Routine Exams 03/08/22 18:42 Completed CV. echo complete* [id number] Routine Ultrasound 03/09/22 06:00 Completed US venous duplex lower extremity bilat [CV venous Ultrasound 03/09/22 01:53 [place] [id number]] Routine Radiology Impressions Chest X-Ray 03/09/22 00:12 IMPRESSION: Negative exam. Chest CTA 03/09/22 01:53 IMPRESSION: 1. Negative for pulmonary embolism. 2. Endobronchial secretions. Bronchitis or aspiration not excluded. Venous Duplex 03/09/22 01:53 IMPRESSION: 1. No evidence of acute right lower extremity DVT. 2. No evidence of acute left lower extremity DVT. Laboratory Results WBC 10.6 10^3/uL (4.0-10.0) H 03/14/22 03:39 RBC 3.82 10^6/uL (4.1-5.3) L 03/14/22 03:39 Hgb 11.0 g/dL (11.5-15.3) L 03/14/22 03:39 Hct 34.4 % (37.0-47.0) L 03/14/22 03:39 MCV 90.1 fl (81-99) 03/14/22 03:39 MCH 28.8 pg (28.0-34.0) 03/14/22 03:39 MCHC 32.0 g/dL (30.0-36.0) 03/14/22 03:39 RDW 13.1 % (12.1-15.1) 03/14/22 03:39 Plt Count 424 10^3/cmm (130-400) H 03/14/22 03:39 MPV 10.2 fL (7.4-10.4) 03/14/22 03:39 Neut % (Auto) 55.2 % 03/14/22 03:39 Lymph % (Auto) 32.9 % 03/14/22 03:39 Gillespie % (Auto) 9.8 % 03/14/22 03:39 Eos % (Auto) 1.4 % 03/14/22 03:39 Baso % (Auto) 0.4 % 03/14/22 03:39 Neut # (Auto) 5.87 10^3/uL (1.8-7.7) 03/14/22 03:39 Lymph # (Auto) 3.5 10^3/uL (0.8-4.8) 03/14/22 03:39 Gillespie # (Auto) 1.0 10^3/uL (0.2-0.9) H 03/14/22 03:39 Eos # (Auto) 0.2 10^3/uL (0.0-0.8) 03/14/22 03:39 Baso # (Auto) 0.0 10^3/uL (0.0-0.1) 03/14/22 03:39 Nucleated RBC % (auto) 0 % 03/14/22 03:39 Nucleated RBCs # 0.0 /100WBC 03/14/22 03:39 D-Dimer 2.11 ug/mIFEU (0-0.59) H 03/09/22 00:45 Specimen Type Arterial 03/09/22 00:17 Sample Site Radial, right 03/09/22 00:17 ABG pH 7.40 (7.35-7.45) 03/09/22 00:17 ABG pCO2 30.9 mmHg (35-45) L 03/09/22 00:17 ABG pO2 70.6 mmHg (80.0-100.0) L 03/09/22 00:17 ABG HCO3 18.9 mmol/L (22-26) L 03/09/22 00:17 ABG O2 Saturation 94.6 03/09/22 00:17 ABG Base Excess -4.9 mmol/L (-2.0-2.0) L 03/09/22 00:17 Aristides Test Pos 03/09/22 00:17 A-a O2 Gradient 31.9 mmHg (5-10) H 03/09/22 00:17 Hematocrit 38.4 % (37-47) 03/09/22 00:17 Hgb O2 Saturation 92.8 % (95-100) L 03/09/22 00:17 Carboxyhemoglobin 1.2 %THgb (0.4-20.1) 03/09/22 00:17 Methemoglobin 0.7 % (0.4-1.5) 03/09/22 00:17 Total Hemoglobin 12.5 g/dL (12-16) 03/09/22 00:17 Sodium 138.0 mmol/L (131-143) 03/09/22 00:17 Potassium 4.4 mmol/L (3.5-5.0) 03/09/22 00:17 Glucose 213.0 mg/dL (70-115) H 03/09/22 00:17 Ionized Calcium 1.2 mmol/L (1.1-1.4) 03/09/22 00:17 O2 Delivery Device Oxy mask 03/09/22 00:17 O2 Liters/Min 6.0 % 03/09/22 00:17 FiO2 50.0 % 03/09/22 00:17 Animal Trainer ID [email or web address] 03/09/22 00:17 Sodium 136 mmol/L (136-145) 03/14/22 03:39 Potassium 3.4 mmol/L (3.5-5.1) L 03/14/22 03:39 Chloride 102 mmol/L (98-107) 03/14/22 03:39 Carbon Dioxide 22 mmol/L (22-29) 03/14/22 03:39 Anion Gap 15.4 (5-19) 03/14/22 03:39 BUN 29 mg/dL (8-23) H 03/14/22 03:39 Creatinine 0.7 mg/dL (0.5-0.9) 03/14/22 03:39 GFR Calculation 84.0 mL/min (90-130) L 03/14/22 03:39 Glucose 203 mg/dL (65-115) H 03/14/22 03:39 POC Glucose 188 mg/dL (70-110) H 03/14/22 11:08 Estimat Average Glucose 151 03/09/22 03:15 Hemoglobin A1c 6.9 % (4.0-6.0) H 03/09/22 03:15 Calculated Osmolality 294 mOsm/kg (285-295) 03/14/22 03:39 Calcium 8.9 mg/dL (8.5-10.5) 03/14/22 03:39 Total Bilirubin 0.2 mg/dL (0.15-1.2) 03/14/22 03:39 AST 12 U/L (0-32) 03/14/22 03:39 ALT 14 U/L (0-33) 03/14/22 03:39 Alkaline Phosphatase 72 U/L (35-105) 03/14/22 03:39 Troponin T Baseline 11 ng/L (0-10) H 03/09/22 00:45 Troponin T 120 Minute 11.47 ng/L (0-10) H 03/09/22 03:15 Delta Troponin T 0.47 ABS# (0-10) 03/09/22 03:15 Troponin T Hi Sens 6Hr 13.15 ng/L (0-10) H 03/09/22 07:00 Troponin T Hi Sens 6Hr Delta 2.15 ng/L (0-12) 03/09/22 07:00 Total Protein 6.5 g/dL (6.6-8.7) L 03/14/22 03:39 Albumin 3.2 g/dL (3.5-5.2) L 03/14/22 03:39 Globulin 3.3 g/dL (1.3-4.6) 03/14/22 03:39 Triglycerides 224 mg/dL (0-150) H 03/09/22 03:15 Cholesterol 109 mg/dL (0-200) 03/09/22 03:15 LDL Cholesterol, Calc 23 mg/dL (50-129) L 03/09/22 03:15 HDL Cholesterol 41 mg/dL (60-100) L 03/09/22 03:15 LDL/HDL Ratio 0.56 RATIO (0.00-3.22) 03/09/22 03:15 Cholesterol/HDL Ratio 2.66 mg/dL (0.0-4.40) 03/09/22 03:15 Procalcitonin 0.10 ng/mL (0-0.5) 03/12/22 06:13 Prolactin 30.61 ng/mL (4.8-23.3) H 03/09/22 00:45 Urine Color Yellow (Yellow) 03/08/22 18: Urine Appearance Cloudy (CLEAR) 03/08/22 18:23 Urine pH 5 (5-7) 03/08/22 18:23 Ur Specific [place] 1.020 (1.005-1.030) 03/08/22 18:23 Urine Protein 2+ (Negative) H 03/08/22 18:23 Urine Glucose (UA) Norm (Normal) 03/08/22 18:23 Urine Ketones 1+ (Negative) H 03/08/22 18:23 Urine Blood 3+ (Negative) H 03/08/22 18:23 Urine Nitrate Negative (Negative) 03/08/22 18: Urine Bilirubin Neg (Negative) 03/08/22 18:23 Urine Urobilinogen Norm mg/dL (Negative) 03/08/22 18:23 Ur Leukocyte Esterase 2+ (Negative) H 03/08/22 18:23 Urine RBC 0-4 /hpf (0-2) H 03/08/22 18:23 Urine WBC Too numerous to cnt /hpf (0-5) H 03/08/22 18:23 Ur Squamous Epith Cells 0-4 /hpf (0-5) H 03/08/22 18:23 Amorphous Sediment Not Reportable 03/08/22 18:23 Urine Bacteria Trace /hpf (NONE) 03/08/22 18:23 SARS-CoV-2 Ag (Rapid) Negative (Negative) 03/09/22 10:17 Vitals Last Vital Signs Temp 98.6 F 03/14/22 11:52 Pulse 89 03/14/22 11:52 Resp 17 03/14/22 11:52 BP 146/85 03/14/22 11:52 Pulse Ox 96 03/14/22 11:52 O2 Del Method 03/14/22 11:52 O2 Flow Rate 2 03/13/22 20:00 Discharge Plan Discharge Patient Disposition: Home Health Service Condition: Stable Prescriptions: New (DME) Optifoam 4 X 4 bandage See Rx Instructions .Route Qty: 100 0RF Rx Instructions: As directed aspirin 81 mg Tablet,Delayed Release (Dr/Ec) 81 mg PO DAILY Qty: 90 0RF clopidogrel 75 mg Tablet 75 mg PO DAILY Qty: 90 0RF levetiracetam 500 mg Tablet 1,000 mg PO BID Qty: 360 0RF Continued hydrocodone-acetaminophen 5-325 mg tablet 1 - 2 tab PO .Q4-6H PRN (Reason: pain) 7 Days Qty: 40 0RF docusate sodium [Stool Softener] 100 mg Capsule 100 mg PO EVERY OTHER DAY metformin 1,000 mg Tablet 1,000 mg PO BID multivitamin Tablet 1 tab PO QAM Unkers Therapeutic Rub 1 applic topical PRN nystatin 100,000 unit/gram powder 1 applic topical BID PRN (Reason: UNKNOWN) Rx Instructions: Apply to clean dry skin Changed lisinopril 5 mg Tablet 2.5 mg PO QAM Qty: 30 0RF atorvastatin 40 mg Tablet 80 mg PO DAILY Qty: 180 0RF insulin detemir U-100 100 unit/mL (3 mL) Insulin Pen 10 unit SUBCUT BEDTIME Qty: 15 0RF Discontinued Novolin N NPH U-100 Insulin 100 unit/mL Suspension See Rx Instructions .ROUTE .COMPLEX Rx Instructions: sliding scale BID TO TID aspirin 325 mg Tablet 325 mg PO DAILY Keppra 750 mg Tablet 750 mg PO BID Discharge Orders: Discharge Order (Routine); Ordered 03/14/22 Ordered By: Pedro Elder Other Ambulatory Orders: DME: Miscellaneous (Order) Location: None Selected Ordered By: Pedro Elder DME: Hospital Bed (Order) Location: None Selected Ordered By: Pedro Elder DME: Wheelchair (Order) Location: None Selected Ordered By: Pedro Elder Referrals: [facility] [Other] [facility] [Other] NEUROSCIENCE PROVIDERS [Provider Group] - 7-10 days Wound Care [Provider Group] - 2 weeks Shelly Rubalcava MD [Staff Physician] - 1 week Discharge Diet: As Directed Discharge Activity: As per PT/OT instructions Patient Instructions: Urinary Tract Infection in Women (GEN), How to Turn a Person in Bed (GEN), How to Prevent Pressure Injuries (GEN), Acute Wound Care (GEN), Ischemic Stroke (GEN), Pressure Injury (GEN), Level 3 National Dysphagia Diet (GEN), Dysphagia (GEN), Aspiration Precautions (GEN), Opioid Safety Activity Restrictions/Additional Instructions: Clean and apply Optifoam for sacral pressure wound daily. Avoid shear stress on shear wound right lower buttock. Apply Optifoam as needed. Protect heels from pressure injury. Follow-up with pressure wounds, left heel healing wounds/calluses with wound care clinic. Maintain aspiration precautions. Continue dysphagia diet with minced/moist foods, please thicken all liquids to nectar thick consistency. Please measure blood pressures at least twice daily, record values to bring to your appointment. Continue lisinopril for now at reduced dose of 2.5 mg, however, if blood pressures consistently become elevated, more than 150 mmHg systolic (top number), or more than 90 diastolic (bottom number), please resume previous dose of lisinopril 5 mg daily. Discharge Attestations Time Spent in Discharge Care*: greater than 30 min Quality Metrics Clinical Quality Measures [ Cerebrovascular Accident { Contraindication to Antithrombotic: None; antithrombotic prescribed; Contraindication to Anticoagulation: Overlap treatment not indicated; Contraindication to Statin: None; Statin prescribed;}] Coding Level of Care Code Acute [facility] note Diagnoses CVA (cerebral vascular accident) I63.9 Elevated white blood cell count D72.829 Diabetes mellitus E11.9 Hypertension I10 Aspiration pneumonia J69.0
--- NOTE | 2022-03-14 13:22 | USCV_ITS ---
Naida Arevalo Age: 66 Gender: F : 1955 Exam Date: 03/14/2022 15:22 Ordering Phys: Pedro Elder MD Technologist: Dashawn Escudero Exam Location: [facility] [place] Indication: tender knot, cord left lower leg PROCEDURES: Venous duplex imaging was performed in only the left lower extremity. The following venous structures were evaluated: common femoral vein, profunda vein, proximal portion of the greater saphenous vein, superficial femoral vein, and the popliteal vein. In addition, the posterior tibial and peroneal trunk were evaluated. Serial compression, augmentation maneuvers, and spectral Doppler flow evaluation were performed. FINDINGS: Normal 2-D Doppler and augmentation and compressibility throughout the lower extremity venous structures. Additional imaging through the proximal calf veins also reveals no thrombus. Limited evaluation of the greater saphenous vein is patent with no thrombus.. CONCLUSIONS No evidence of left lower extremity DVT. Rajiv Aguilera MD (Electronically Signed) Final Date: 15 March 2022 10:13 S
[2022-03-14 15:59] LABS: Glucose Point of Care 199 mg/dL (70-110)
[2022-03-14] MEDS: enoxaparin 40 mg/0.4 mL Syringe SUBCUT (17:51)
[2022-03-14] MEDS: atorvastatin 40 mg Tablet PO (20:05)
[2022-03-14 20:35] LABS: Glucose Point of Care 226 mg/dL (70-110)
[2022-03-15] MEDS: scopolamine 1.5 Patch 1 PATCH TRANSDERMA (00:38)
[2022-03-15] MEDS: acetaminophen 500 mg Tablet PO ×2 (00:57→09:25)
[2022-03-15 03:28] LABS: Anion Gap 16.3 (5-19); Blood Urea Nitrogen 25 mg/dL (8-23); Calcium 8.8 mg/dL (8.5-10.5); Carbon Dioxide 21 mmol/L (22-29); Chloride 100 mmol/L (98-107); Glomerular Filtration Rate 100.3 mL/min (90-130); Glucose 187 mg/dL (65-115); Osmolality Calculated 287 mOsm/kg (285-295); Potassium 3.3 mmol/L (3.5-5.1); Sodium 134 mmol/L (136-145)
[2022-03-15 04:00] VITALS: BP 118/77; PULSE 89; RESP 18; TEMP 36.8
[2022-03-15 06:43] LABS: Glucose Point of Care 180 mg/dL (70-110)
[2022-03-15 07:34] VITALS: BP 117/73; PULSE 86; RESP 18; TEMP 36.9; O2SAT 96
[2022-03-15 08:00] VITALS: PULSE 83; RESP 16; O2SAT 98
[2022-03-15] MEDS: lisinopril 5 mg Tablet 2.5 MG PO (09:24)
[2022-03-15] MEDS: levETIRAcetam 500 mg Tablet 1000 MG PO (09:24)
[2022-03-15] MEDS: clopidogrel 75 mg Tablet PO (09:25)
[2022-03-15] MEDS: aspirin 81 mg EC Tablet PO (09:25)
[2022-03-15] MEDS: insulin lispro 100 unit/1 mL SUBCUT ×2 (09:26→13:44)
--- NOTE | 2022-03-15 10:47 | XR_ITS ---
WS: [id number] Left leg including the tibia and fibula, AP and lateral views, 03/15/2022 Clinical Data: mid mary pain Comparison: Left thigh and femur, 10/05/2020. Findings: There is diffuse osteoporosis of the distal left femur, left tibia and especially the proximal left f ibula. There is soft tissue swelling about the leg. Minimal vascular calcification is noted. There is osteoporosis surrounding the left ankle. There are no fractures or dislocations. XR/XR tibia fibula LT 2V [id number] Impression: Osteoporosis of all the left tibia and fibula.
[2022-03-15] MEDS: HYDROcodone-acetaminophen 5-325 mg Tablet 1 TAB PO (11:10)
[2022-03-15 11:21] LABS: Glucose Point of Care 226 mg/dL (70-110)
[2022-03-15 11:27] VITALS: BP 109/79; PULSE 81; RESP 16; TEMP 37; O2SAT 96
--- NOTE | 2022-03-15 11:34 | PC.SOCIAL ---
IMM Updated Updated pt on IMM. No questions voiced. Provided pt a copy. Initialed, dated, & timed copy in chart.
[2022-03-15 15:38] VITALS: BP 110/63; PULSE 86; RESP 16; TEMP 37.1; O2SAT 95
--- NOTE | 2022-03-15 18:25 | PC.NURSE ---
dc'd pts piv and delgado, discharge instructions given to patient. family verbalized to case management that all equipment has arrived at the house. medications placed on gurney with patient
--- NOTE | 2022-03-15 21:30 | PM.PN ---
Subjective Subjective: Please refer to discharge summary from 03/14, discharge was delayed due to not all equipment available needed for care. Today she was noted to have some bruising over the mid left mary. Due to persistent pain assessed with x-ray. Denied any other new symptoms. Vitals/I&O/Wt Last Vital Signs Temp 98.7 F 03/15/22 15:38 Pulse 86 03/15/22 15:38 Resp 16 03/15/22 15:38 BP 110/63 03/15/22 15:38 Pulse Ox 95 03/15/22 15:38 O2 Del Method 03/15/22 15:38 O2 Flow Rate 2 03/13/22 20:00 03/15/22 03/15/22 03/15/22 06:59 14:59 22:59 Intake Total 120 / 1180 240 / 240 Balance 120 / 1180 240 / 240 Physical Exam Const: COMMON NORMALS: patient oriented x3 and alert GENERAL APPEARANCE: cooperative ORIENTATION/CONSCIOUSNESS: Yes awake HENMT: COMMON NORMALS: oropharynx normal Neck/C-Spine: COMMON NORMALS: no JVD Resp: COMMON NORMALS: normal respiratory effort and clear to auscultation bilaterally AUSCULTATION: clear to auscultation bilaterally Cardio: COMMON NORMALS: no JVD, regular rhythm, S1 normal heart sound present, S2 normal heart sound present and No murmurs present (Cardio) RHYTHM: regular rhythm HEART SOUNDS: S1 normal heart sound present and S2 normal heart sound present GI: COMMON NORMALS: Normal to inspection, nondistended, normoactive bowel sounds present, Soft to palpation and non-tender PALPATION: Yes Soft to palpation Extremity: COMMON NORMALS: no joint enlargement and no pedal edema NARRATIVE EXTREMITY EXAM: Minimal ecchymosis, small hematoma mid anterior mary. Neuro: COMMON NORMALS: patient oriented x3 SENSORIUM/ORIENTATION: Yes alert COORDINATION/BALANCE: other (No dysmetria on FNF, but made more difficult with visual field loss) SPEECH: speech normal SENSORY EXAM: Yes extremities (Diminished on L); No Normal double simultaneous stimulation for sensation MOTOR EXAM: Other motor observations present (L hemiplegia) COORDINATION: other (No dysmetria on FNF, but made more difficult with visual field loss) Skin: COMMON NORMALS: no rashes or lesions noted GENERAL SKIN EXAM: no rashes or lesions noted OTHER: Known early pressure sore sacrum with minimal skin breakdown. Noted shear injury on right lower buttock. Old healed pressure ulcer superior posteriorly above the left heel. At posterior aspect of the left heel about 2 cm healed prior pressure ulcer with callus formation. Urinary Catheter Management: Em: Cath Placed During This Visit: yes Reason for Continuing Indwelling Catheter: Acute Urinary Retention or Obstruction Urinary Catheter Date of Insertion: 03/08/22 Urinary Catheter Time of Insertion: 18:11 Data : 03/14/22 03:39 03/15/22 02:57 A&P Assessment and plan (1) CVA (cerebral vascular accident): Arrangements made today for needed equipment at home allowing for discharge. Continue aspirin, statin, has been also initiated on clopidogrel. Continue work with therapy. Keppra following seizure. SNF declined by insurance, discussed with case management, further post discharge planning discussions taking place with family. Requesting necessary equipment for possible return home as family cannot afford [id number] long-term facility rehabilitation. Patient presents with subacute CVA, right frontal region. not a candidate for tPA Symptoms currently include dense left hemiparesis, likely visual field loss, slurred speech, decreased responsiveness however the latter appears to be improving at this time.. Patient is known to have bilateral carotid artery disease stenosis per description by her daughter. She has declined any intervention in the past for her carotid disease. 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 She is status post transmetatarsal amputation for the same. Was followed by infectious disease in [place]. Has had no active interim infective issues. Continue supportive care Echocardiogram shows LV systolic function normal with EF of 65 to 70%. Mild aortic stenosis with CONSUELO of 1.2 cm?. Lovenox for DVT prophylaxis Started on Keppra 1000 mg IV every 12 hours for witnessed seizures on the night of 03/08. p.o. Keppra. Status: Acute (2) Elevated white blood cell count: Resolving. Procalcitonin 0.1. Stopped ceftriaxone. May be related to UTI versus aspiration pneumonia Oxygenating well. Urine culture without pathogenic growth. CTA without evidence of consolidation. No PE. Status: Acute (3) Diabetes mellitus: Sliding scale insulin Status: Acute (4) Hypertension: Blood pressures increasing. Resume lisinopril at lower dose 2.5 mg. Status: Acute (5) Aspiration pneumonia: Improving. Weaned off oxygen. Stopped Rocephin. Check procalcitonin. Continue aspiration precautions, dysphagia diet. Overnight on the night of 03/08 she developed acute hypoxic respiratory failure. Suspect that this was related to attempts at feeding earlier that evening with Ensure. Patient underwent a swallow evaluation today with no noted aspiration concerns. Status: Acute Plan Left leg/mary pain: No DVT on duplex. Small hematoma, seems perhaps a small contusion perhaps during turning. No falls or other trauma. X-ray obtained, without fracture. Multiple other medical problems as outlined in past medical history Full code currently. Lovenox will suffice for DVT prophylaxis. Attestations Medical Necessity Statement*: Returning home. Coding Level of Care Code Acute Assistant Track Coach for [facility] [place] Diagnoses CVA (cerebral vascular accident) I63.9 Elevated white blood cell count D72.829 Diabetes mellitus E11.9 Hypertension I10 Aspiration pneumonia J69.0
== END 2022-03-15 16:05 | disposition home health service (06) | DRG 64 ==
LOC: MEDSURG 03-09 02:59 → ICU 03-09 03:05 → MEDSURG 03-09 23:47 → ICU 03-13 01:39 → MEDSURG 03-13 01:39
PROVIDERS: Internal Medicine; Student in an Organized Health Care Education/Training Program; Admitting Provider Family Medicine; Visit Provider Internal Medicine
DX: I63.9 Cerebral infarction, unspecified (principal); J69.0 Pneumonitis due to inhalation of food and vomit; J96.01 Acute respiratory failure with hypoxia; G81.94 Hemiplegia, unspecified affecting left nondominant side; N39.0 Urinary tract infection, site not specified; R29.810 Facial weakness; R47.81 Slurred speech; D72.829 Elevated white blood cell count, unspecified; I10 Essential (primary) hypertension; Z79.52 Long term (current) use of systemic steroids; L89.159 Pressure ulcer of sacral region, unspecified stage; L89.319 Pressure ulcer of right buttock, unspecified stage; R56.9 Unspecified convulsions; H53.452 Other localized visual field defect, left eye; E11.51 Type 2 diabetes mellitus with diabetic peripheral angiopathy without gangrene; M79.662 Pain in left lower leg; E78.5 Hyperlipidemia, unspecified; E66.9 Obesity, unspecified; Z68.38 Body mass index [BMI] 38.0-38.9, adult
CPT/HCPCS: 36415; 36416; 36600; 51702; 71045; 71275; 73590; 80048; 80051; 80053; 80061; 81001; 82330; 82805; 82962; 83036; 84145; 84146; 84484; 85025; 85378; 87086; 87426; 92507; 92523; 92526; 92610; 93005; 93306; 93970; 93971; 94640; 96372; 97110; 97162; 97166; 97530; 97535; J0696; J1650; J1815; J1953; J3490; J7030; J7608; Q9967